=== PATIENT | male | born 1950 | race Caucasian/White ===

== ENCOUNTER 2016-11-21 09:54 | Inpatient (IN) | payer MEDICARE, OTHER ==
[~2016-11-21] VITALS: Ht 175.3 cm; Wt 83.1 kg
--- NOTE | ~2016-11-21 | HEMODYNAMI ---
PATIENT:JANE YORK MEDICAL RECORD: [id number] : 46 LOCATION:[facility] D.231 ADMISSION DATE: 11/25/16 Generatedon:12/04/201618:06 Patient name: JANE YORK Patient #: [id number] SSN: : 1950 Date of study: 12/04/2016 Page: Of Hemodynamic Procedure Report Patient Data Patient Demographics Procedure consent was obtained First Name: JANE Gender: Male Last Name: CHELA : 1950 [facility] Initial: R Age: 66 year(s) Patient #: [id number] Race: Ethnicity: or Additional ID: [id number] Contact details [address]: [address] [place] [address] TRAIL State: [place] City: [place] Zip code: [address] Past Medical History History of disease Date Diagnosis Comments PVD Admission Admission Data Admission Date: 11/25/2016 Admission Time: 5:57 Room #: [facility] Procedure Procedure Types Cath Procedure Peripheral Cath Diagnostic Procedure Cath Peripheral Abd/Extremity Extremities Bilat Lower Extremity Procedure Description Procedure Date Procedure Date: 12/04/2016 Procedure Start Time: 17:02 Procedure Staff Name Function Reena Wolf RN Nurse Gomez Garcia MD Performing Physician Bijan Goodson RT Monitor Reena Marie RT Scrub Procedure Data Cath Procedure Fluoroscopy Diagnostic fluoroscopy Total fluoroscopy Time: 8.6 time: 8.6 min min Diagnostic fluoroscopy Total fluoroscopy dose: dose: 180.68 mGy 180.68 mGy Contrast Material Contrast Material Type Amount (ml) Isovue 300 80 Entry Location Entry Primary Successful Side Size Upsize 1 Upsize Entry Closure Rice ccessful Closure Location (Fr) (Fr) 2 (Fr) Remarks Device Remarks Femoral Right 5 Fr 6 Fr artery Mid-Length Hemodynamics Rest Heart Rate: 111 (bpm) Snapshots Pre Cath Intra NCS Post Cath Vital Signs Time Heart Resp SPO2 NIBP (mmHg) Rhythm Pain Sedation Rate (ipm) (%) Status Level (bpm) 13:56:03 112 30 96 141/76(93) NSR 0 (11) 10(A) , No pain 14:00:02 108 20 97 119/72(102) NSR 0 (11) 10(A) , No pain 14:04:10 105 20 97 125/72(105) NSR 0 (11) 10(A) , No pain 14:08:18 108 16 96 120/72(91) NSR 0 (11) 10(A) , No pain 14:12:26 109 96 118/75(100) NSR 0 (11) 10(A) , No pain 14:16:34 109 97 132/74(90) NSR 0 (11) 10(A) , No pain 14:20:33 No Cuff NSR 0 () 10(A) , No pain 14:24:33 No Cuff NSR 0 () 10(A) , No pain 14:28:33 No Cuff NSR 0 () 10(A) , No pain 14:32:33 No Cuff NSR 0 () 10(A) , No pain 14:36:32 No Cuff NSR 0 () 10(A) , No pain 14:40:03 Aborted NSR 0 (11) 10(A) , No pain 16:46:07 106 100 121/65(87) NSR 0 (11) 10(A) , No pain 16:50:17 108 100 126/69(91) NSR 0 (11) 10(A) , No pain 16:54:27 107 100 125/67(92) NSR 0 (11) 10(A) , No pain 16:58:35 106 100 126/75(92) NSR 0 (11) 10(A) , No pain 17:02:45 104 100 132/73(94) NSR 0 (11) 10(A) , No pain 17:06:57 104 100 132/74(97) NSR 0 (11) 10(A) , No pain 17:11:07 105 100 144/78(101) NSR 0 (11) 10(A) , No pain 17:15:20 106 99 136/76(101) NSR 0 (11) 10(A) , No pain 17:19:32 106 99 142/78(95) NSR 0 (11) 10(A) , No pain 17:23:44 109 99 154/82(111) NSR 0 (11) 10(A) , No pain 17:28:04 107 99 147/76(107) NSR 0 (11) 10(A) , No pain 17:32:21 108 100 149/80(102) NSR 0 (11) 10(A) , No pain 17:36:34 107 100 147/82(110) NSR 0 (11) 10(A) , No pain 17:40:46 109 26 99 161/89(112) NSR 0 (11) 10(A) , No pain 17:44:58 109 22 99 165/90(123) NSR 0 (11) 10(A) , No pain 17:49:18 110 31 99 166/89(119) NSR 0 (11) 10(A) , No pain 17:53:39 108 30 100 158/89(121) NSR 0 (11) 10(A) , No pain 17:57:55 107 32 100 166/102(124) NSR 0 (11) 10(A) , No pain 18:01:54 100 No Cuff NSR 0 (11) 10(A) , No pain Procedure Log Time Note 16:42:13 Bijan Goodson RT (R) (CV) sent for patient. Start room use. 16:42:25 Time tracking: Regular hours 16:42:31 Plan of Care:Hemodynamics will remain stable., Cardiac rhythm will remain stable., Comfort level will be maintained., Respiratory function will remain adequate., Patient/ family verbilizes understanding of procedure., Procedure tolerated without complication., Recovers from procedure without complications.. 16:44:22 Correct patient and procedure confirmed by team. 16:44:24 Signed procedure consent form obtained from patient. 16:44:25 ECG and BP/O2 sat monitors applied to patient. 16:44:27 Full Disclosure recording started 16:44:27 - 16:44:32 H&P Date Dictated: 12/04/2016 Within 30 days and on chart.. 16:45:03 Vital chart was started 16:45:04 Baseline sample Acquired. 16:45:09 Rhythm: sinus tachycardia 16:45:13 Family in waiting room. 16:45:15 Patient NPO since Midnight. 16:45:23 Patient diabetic? No. 16:45:26 - 16:45:27 ----Pre-sedation anethsthesia assessment.---- 16:45:30 Previous problem with sedation/anesthesia? No ? 16:45:32 Snore? Yes 16:45:35 Sleep apnea? No 16:45:37 Deviated septum? No 16:45:38 Opens mouth fully? Yes 16:45:39 Sticks out tongue? Yes 16:45:44 Airway obstruction? No ? 16:46:36 pt on vent unable to answer questions 16:46:51 Pre procedure: right dorsailis pedis pulse Doppler 16:47:17 Pre procedure: left dorsailis pedis pulse 0-Absent 16:47:29 Pre procedure: right posterior tibial pulse Doppler 16:47:42 Pre procedure: left posterior tibial pulse 0-Absent 16:48:04 Patient pain scale 0/10 no pain. 16:48:12 IV patent on arrival in Lt subclavian with 0.9% NaCl at [facility]. 16:48:21 Right groin area was prepped with chlora-prep and draped in sterile fashion 16:48:26 Sharps counted by scrub and verified by R.N. 16:48:26 Alarms reviewed by R. N. 16:48:50 Use device set IR Diagnostic 16:48:52 Sterile Angiographic Pack opened to sterile field. 16:48:56 Bag Decanter opened to sterile field. 16:48:58 Acist Hand Control opened to sterile field. 16:48:59 Acist Manifold opened to sterile field. 16:59:31 Physician arrived 16:59:31 --------ALL STOP TIME OUT------ 16:59:32 Final Timeout: patient, procedure, and site verified with staff and physician. All members of the team are in agreement. 16:59:34 Right groin site verified by team. 16:59:44 Physical assessment completed. ASA score P 3 - A patient with severe systemic disease as per Gomez Garcia MD. 16:59:48 Sedation plan: IV Moderate Sedation Versed, Fentanyl 17:02:38 Procedure started. 17:02:43 Local anesthetic to right femoral artery with Lidocaine 1% by Gomez Garcia MD.INITIAL ACCESS ONLY 17:08:01 [place] Sci Amplatz Super Stiff 75CM guide wire opened to sterile field. 17:08:13 A 5 Fr sheath was inserted into the Right Femoral artery 17:08:15 High Pressure Extension Tubing (Tu Otro Super) opened to sterile field. 17:08:15 Acist Syringe opened to sterile field. 17:08:16 Micropuncture VSI 4FR kit opened to sterile field. 17:08:19 Cook ROSASON 145cm guide wire opened to sterile field. 17:10:35 Terumo 5FR ANGLED 65CM glide catheter opened to sterile field. 17:11:37 Terumo ANGLE 180L glide wire opened to sterile field. 17:21:04 Cook NEELY 260 guide wire opened to sterile field. 17:28:51 Terumo 6Fr Ancram Destination Sheath opened to sterile field. 17:29:23 Sheath upsized to a 6 Fr Mid-Length. 17:30:28 CXI SUPPORT .035 135 CM STR catheter opened to sterile field. 17:30:30 Terumo ANGLE 260L glide wire opened to sterile field. 17:30:45 Terumo TORQUE DEVICE PLASTIC .038 opened to sterile field. 17:32:19 Terumo 5FR ANGLED 100CM glide catheter opened to sterile field. 17:34:52 CRAGG-DIANE 30cm infusion catheter opened to sterile field. 17:42:25 2.0 Silk 685H opened to sterile field. 17:42:39 sheath sutured in with 2.0 silk 17:46:12 Procedure ended.(Physican Out) 17:47:16 Fluoroscopy time 08.60 minutes. 17:47:25 Fluoroscopy dose: 180.68 mGy 17:47:25 Flurop Dose total: 180.68 17:47:29 Contrast amount:Isovue 300 80ml. 17:47:31 Sharps counted by scrub and verified by R.N. 17:47:33 Insertion/operative site no bleeding no hematoma. 17:47:38 Post right femoral artery:stable 17:47:42 Post Procedure Pulses reassessed and unchanged 17:47:47 Post-procedure physical assessment completed. ASA score P 3 - A patient with severe systemic disease as per Gomez Garcia MD. 17:47:54 Post procedure rhythm: unchanged. 17:48:05 Post procedure instruction explained to patient.Patient verbalizes understanding. 17:48:07 Procedure and supply charges have been captured, reviewed, submitted an d are correct. 18:04:25 Report given to ICU. 18:04:38 Patient transfered to ICU with Bed. 18:06:00 Vital chart was stopped Device Usage Item Name Manufacture Quantity Catalog Hospital Part Current Minim al Lot# / Number Charge Number Stock Stock Serial# Code Sterile Cardinal 1 [id number] [id number] 5 Angiographic Health Pack Bag Decanter Microtek 1 2001S [id number] 13619 091829 5 Medical Inc. Acist Hand Acist 1 02655 331733 315861 591820 5 Control Medical Systems Inc Acist Manifold Acist 1 74668 539249 124459 808572 5 Medical Systems Inc [place] [facility] [place] 1 [id number] 595782 921008 966110 5 [id number] Amplatz Super Scientific Stiff 75CM guide wire High Pressure Merit 1 [id number] 403573 85228 209718 10 Extension Medical Tubing (Patel) Acist Syringe Acist 1 32745 945796 417678 488052 20 Medical Systems Inc Micropuncture VSI VASCULAR 1 7266V 642287 601482 5 VSI 4FR kit SOLUTIONS Cook BENTSON Cook Medical 1 [id number] 128234 340386 5 145cm guide wire Terumo 5FR Terumo 1 CG507 382517 792613 5 ANGLED 65CM glide catheter Terumo ANGLE Terumo 1 EK9548 056074 968527 5 180L glide wire Cook NEELY 260 Cook Medical 1 Q22253 001565 850391 5 8331115 guide wire Terumo 6Fr Terumo 1 RSR01 652446 25428 146075 5 Ancram Destination Sheath CXI SUPPORT Cook Medical 1 E32909 950865 171745 5 9751482 .035 135 CM STR catheter Terumo ANGLE Terumo 1 KH9363 642516 167035 5 260L glide wire Terumo TORQUE [place] 1 TD01 158335 773188 313248 5 DEVICE PLASTIC Scientific .038 Terumo 5FR Terumo 1 CG508 091217 537560 4 ANGLED 100CM glide catheter [facility] Ev3 1 62119-99 551011 747678 5 30cm infusion catheter 2.0 Silk 685H Ethicon 1 685H 752044 411586 5 Signature Audit [place] Stage Time Signature Unsigned Intra-Procedure 12/04/2016 Bijan 6:05:58 PM Hamzah RT (R) (CV) Signatures Monitor : Bijan Signature : Hamzah RT Date : Time : [facility] [address] [place] [address]
--- NOTE | ~2016-11-21 | HEMODYNAMI ---
PATIENT:JANE YORK MEDICAL RECORD: [id number] : 46 [id number] ADMISSION DATE: 11/25/16 Generatedon:12/05/201612:11 Patient name: JANE YORK Patient #: [id number] SSN: : 1950 Date of study: 12/05/2016 Page: Of Hemodynamic Procedure Report Patient Data Patient Demographics Procedure consent was obtained First Name: JANE Gender: Male Last Name: CHELA : 1950 [facility] Initial: R Age: 66 year(s) Patient #: [id number] Race: Ethnicity: or Additional ID: [id number] Contact details [address]: [address] [place] [address] TRAIL State: [place] City: [place] Zip code: [address] Past Medical History History of disease Date Diagnosis Comments PVD Admission Admission Data Admission Date: 11/25/2016 Admission Time: 5:57 Room #: [id number] Weight (lbs.): 198 Weight (kg.): 89.81 Procedure Procedure Types Cath Procedure Peripheral Cath Diagnostic Procedure Cath Peripheral Abd/Extremity Extremities Bilat Lower Extremity Procedure Description Procedure Date Procedure Date: 12/05/2016 Procedure Start Time: 11:10 Procedure Staff Name Function Sourav Almaguer MD Performing Physician Bijan Goodson RT Scrub Nabila Knutosn RN Nurse Geri Pagan RT Clinical Quality Manager Geri Pagan RT Monitor Procedure Data Cath Procedure Fluoroscopy Diagnostic fluoroscopy Total fluoroscopy Time: 0 time: 0 min min Diagnostic fluoroscopy Total fluoroscopy dose: dose: 227.25 mGy 227.25 mGy Contrast Material Contrast Material Type Amount (ml) Isovue 300 75 Entry Location Entry Primary Successful Side Size Upsize Upsize Entry Closure Succes sful Closure Location (Fr) 1 (Fr) 2 (Fr) Remarks Device Remarks Femoral Mynx artery Shellfish Meat Separator Operator 6Fr/7Fr Procedure Medications Medication Administration Route Dosage Heparin Bolus I.V. 5000 units Fentanyl I.V. 50 mcg Fentanyl I.V. 50 mcg Hemodynamics Rest Heart Rate: 89 (bpm) Snapshots Pre Cath Intra NCS Post Cath Vital Signs Time Heart Resp SPO2 NIBP (mmHg) Rhythm Pain Sedation Rate (ipm) (%) Status Level (bpm) 10:55:03 88 16 98 No Cuff NSR 0 (11) 10(A) , No pain 10:59:30 87 17 95 117/72(95) NSR 0 (11) 10(A) , No pain 11:03:38 88 16 94 118/73(96) NSR 0 (11) 10(A) , No pain 11:07:47 86 16 95 122/68(89) NSR 0 (11) 10(A) , No pain 11:11:55 86 16 95 126/72(105) NSR 0 (11) 10(A) , No pain 11:16:07 84 16 95 114/68(94) NSR 0 (11) 10(A) , No pain 11:20:15 82 16 96 122/69(92) NSR 0 (11) 10(A) , No pain 11:24:21 81 23 95 130/80(101) NSR 0 (11) 10(A) , No pain 11:28:35 84 16 95 117/71(94) NSR 0 (11) 10(A) , No pain 11:32:42 84 16 96 119/71(93) NSR 0 (11) 10(A) , No pain 11:36:52 85 16 96 120/69(97) NSR 0 (11) 10(A) , No pain 11:41:00 84 16 96 120/73(93) NSR 0 (11) 10(A) , No pain 11:45:08 83 19 96 123/71(89) NSR 0 (11) 10(A) , No pain 11:49:16 83 19 97 122/76(91) NSR 0 (11) 10(A) , No pain 11:53:24 81 16 96 122/77(100) NSR 0 (11) 10(A) , No pain 11:57:31 80 16 95 133/76(107) NSR 0 (11) 10(A) , No pain 12:01:46 80 16 95 136/72(97) NSR 0 (11) 10(A) , No pain 12:06:00 82 16 95 131/75(103) NSR 0 (11) 10(A) , No pain 12:10:11 83 16 95 122/75(102) NSR 0 (11) 10(A) , No pain Medications Time Medication Route Dose Verified Delivered Reason Notes Effe ctiveness by by 11:21:28 Heparin I.V. 5000 Nabila Nabila for Bolus units King TYRON Knutson RN anticoagulation 11:52:38 Fentanyl I.V. 50 Nabila Nabila for sedation mcg King TYRON Knutson RN 12:04:46 Fentanyl I.V. 50 Nabila Nabila for sedation [facility] King TYRON Knutson RN Procedure Log Time Note 10:50:21 Patient Weight : 198 lbs 10:50:56 Time tracking: Regular hours 10:51:22 Plan of Care:Hemodynamics will remain stable., Cardiac rhythm will remain stable., Comfort level will be maintained., Respiratory function will remain adequate., Patient/ family verbilizes understanding of procedure., Procedure tolerated without complication., Recovers from procedure without complications.. 10:51:30 Pt arrived from ICU bagged by RT. Pt ventilated and sedated. Vent settings: AC 16, 60% fiO2, TV 600, Peep 5. ET tube at 25 lip level. Right TLSC IV, clancy, abdominal wound vac, DAMION drains all secure. 10:51:30 Propofol drip continued at current rate of 40mcg/kg/min. 10:51:32 Patient received from ICU to IR On ventilator. Tansferred to table in Supine position. 10:51:35 Correct patient and procedure confirmed by team. 10:51:37 Signed procedure consent form from procedure 12/04/16 10:51:40 - 10:51:48 H&P Date Dictated: 12/05/2016 Within 30 days and on chart.. 10:51:52 Family unavailable. 10:51:55 Patient NPO since Midnight. 10:51:58 Is the patient allergic to Iodine/contrast media? No. 10:52:04 Is patient on blood thinner?Yes 10:52:08 Patient diabetic? No. 10:52:09 - 10:52:11 ----Pre-sedation anethsthesia assessment.---- 10:52:16 Previous problem with sedation/anesthesia? No ? 10:52:20 Snore? Yes 10:52:23 Sleep apnea? No 10:52:25 Deviated septum? No 10:52:27 Opens mouth fully? N/A 10:52:29 Sticks out tongue? N/A 10:52:34 Airway obstruction? Yes copd 10:52:40 Dentures? No ? 10:52:42 - 10:52:49 Pre procedure: right dorsailis pedis pulse Doppler 10:52:55 Pre procedure: right posterior tibial pulse Doppler 10:53:17 Pre procedure: left posterior tibial pulse 0-Absent 10:53:26 Pre procedure: left dorsailis pedis pulse 0-Absent 10:53:49 IV patent on arrival in subclavian with 0.9% NaCl at [facility]. 10:54:03 Right groin area was prepped with betadine and draped in sterile fashio n 10:54:06 Alarms reviewed by Judy Cruz 10:54:07 Sharps counted by scrub and verified by Dl 10:54:08 - 10:54:13 ECG and BP/O2 sat monitors applied to patient. 10:54:14 Vital chart was started 10:54:15 Baseline sample Acquired. 10:54:17 Full Disclosure recording started 10::18 - 10:54:28 Use device set IR Diagnostic 10:54:31 Sterile Angiographic Pack opened to sterile field. 10:54:32 Bag Decanter opened to sterile field. 11:09:16 Physician arrived 11::18 --------ALL STOP TIME OUT------ 11::19 Final Timeout: patient, procedure, and site verified with staff and physician. All members of the team are in agreement. 11::29 Right groin site verified by team. 11::49 Physical assessment completed. ASA score P 3 - A patient with severe systemic disease as per Sourav Almaguer MD. 11:10:21 Sedation plan: Local Anesthetic Lidocaine 11::28 Procedure started. 11::32 Local anesthetic to right femoral artery with Lidocaine 1% by Sourav Almaguer MD.INITIAL ACCESS ONLY 11:21:28 Heparin Bolus 5000 units I.V. was given by Nabila Knutson RN; for anticoagulation; 11:22:22 Cook Bentson 260cm 0.035 guide wire opened to sterile field. 11:22:[address] 260 .035 glide wire opened to sterile field. 11:22:36 CXI SUPPORT .035 135 CM STR catheter opened to sterile field. 11:25:15 BasixTOUCH Inflation Syringe opened to sterile field. 11:25:33 QuickCat Extraction catheter opened to sterile field. 11:26:07 Tyler Sci Choice PT Extra Support J 300cm .014 gu opened to sterile field. 11:27:19 Inflation number: 1 A Saber 3.0 X 150 X 150 balloon was prepped and advanced across the Undefined1, then inflated to 14 JEFF for 0:24 (min:sec). 11:38:21 Copilot Bleedback Control Valve opened to sterile field. 11:52:38 Fentanyl 50 mcg I.V. was given by Nabila Knutson RN; for sedation; 12:00:43 St Aly 6Fr sheath opened to sterile field. 12:03:06 Contrast amount:Isovue 300 75ml. 12:04:46 Fentanyl 50 mcg I.V. was given by Nabila Knutson RN; for sedation; 12:05:36 MYNX STIFF LEG OPERATOR 6FR/7FR opened to sterile field. 12:05:51 A sheath was inserted into the Femoral artery 12:05:51 Sheath removed intact; hemostasis achieved with Mynx Shellfish Meat Separator Operator 6Fr/7Fr to th e Femoral artery. 12:05:56 Procedure and supply charges have been captured, reviewed, submitted an d are correct. 12:09:25 Procedure ended.(Physican Out) 12:09:48 Fluoroscopy time 00.00 minutes. 12::58 Fluoroscopy dose: 227.25 mGy 12::58 Flurop Dose total: 227.25 12:10:01 Sharps counted by scrub and verified by R.N. 12:11:06 Vital chart was stopped Intervention Summary Intervention Notes Time ActionType Lesion and Equipment Action# Pressure Duration Attributes Used 11:27:19 Inflate Undefined1 Saber 3.0 1 14 00:24 balloon X 150 X 150 balloon Device Usage Item Name Manufacture Quantity Catalog Number Hospital Part Current Mini mal Lot# / Charge Number Stock Stock Serial# Code Sterile Cardinal 1 [id number] [id number] 171188 5 Angiographic Health Pack Bag Decanter Microtek 1 2001S 499670 28834 243147 5 Reve[employer]r [employer] Inc. Cook [facility] Cook Medical 1 [id number] 707177 472152 342895 4 [id number] 260cm 0.035 guide wire Cook Cook Medical 1 [id number] 221095 313195 5 0751530 [facility] 260 .035 glide wire CXI SUPPORT Cook Medical 1 [id number] 104535 839700 5 4873187 .035 135 CM STR catheter BasixTOUCH Merit 1 [id number] 538246 208300 681620 5 Inflation Medical Syringe QuickCat Maquet 1 66205-52 661656 604941 998454 5 Extraction catheter Tyler Sci Tyler 1 [id number] 139911 106280 942233 5 Choice PT Scientific Extra Support J 300cm .014 gu Saber 3.0 X Cardinal 1 [id number] 481667 210981 5 150 X 150 Health balloon Copilot Mckee 1 [id number] 592164 968878 210007 [address] Bleedback [address] Control Valve [address] Aly 6[address] St Aly 1 524214 925026 342622 5 [id number] sheath MYNX STIFF LEG OPERATOR Access 1 [id number] 371574 465176 5 6FR/7FR Closure Signature Audit [place] Stage Time Signature Unsigned Intra-Procedure 12/05/2016 Geri Pagan 12:11:03 PM RT(R) Signatures Monitor : Geri Pagan RT Signature : Date : Time : [place] [id number] [facility] [place] [address]
[~2016-11-21 09:54] MED LIST: ATIVAN1 MG PO; AUGMENTIN 875-11 TAB PO; BAYER CHEWABLE81 MG PO; BENICAR HCT 20-1 TA1; BENICAR HCT 20-1 TA1 PO; BENICAR HCT 40-1 TAB PO; BENICAR20 MG PO; BYSTOLIC5 MG PO; CELEXA20 MG PO; CEPACOL SORE T1 EAC3 PO; CLOMID50 MG PO; HYDROCODONE-APA1 TAB PO; IPRAT-ALBUT 0.5-3 ML UPD; LINZESS145 MCG PO; METOZOLV ODT5 MG PO; MIRALAX17 GM PO; MOBIC7.5 MG PO; NEXIUM40 MG PO; NICODERM C1 PATCH .1 TRANSDERM; PLAVIX75 MG PO; PROBIOTIC1 EAC1 PO; REGLAN5 MG PO; ZOFRAN ODT4 MG/UDTAB PO; ZOSYN 3.3753.375 G1 IV
[2016-11-21 13:41] LABS: BASOPHILS 0.9 % (0.0-2.0); EOSINOPHILS 3.1 % (0-7); HEMATOCRIT 43.2 % (42.0-54.0); HEMOGLOBIN 14.6 g/dL (13.5-17.5); IMMATURE GRANULOCYTES 0.1 % (0-5); MCH 30.3 pg (26.0-34.0); MCHC 33.8 g/dL (31.0-37.0); MCV 89.6 fL (80.0-100.0); MEAN PLATELET VOLUME 10.9 fL (7.4-10.4); MONOCYTES 9.5 % (2-11); NEUTROPHILS 67.4 % (40-80); PLATELET COUNT 269 10x3/uL (130-400); RBC 4.82 10x6/uL (4.20-6.10); RDW 14.1 % (11.5-14.5); WBC 6.8 10x3/uL (4.8-10.8)
[2016-11-21 13:45] LABS: APTT 28.4 SECONDS (22.8-39.4); INR 1.02 (0.85-1.17); PROTIME 13.2 SECONDS (11.6-15.0)
[2016-11-21 13:46] LABS: ANION GAP 12.8 mmol/L (8-16); CALCIUM 9.6 mg/dL (8.5-10.1); CARBON DIOXIDE 29.5 mmol/L (21.0-32.0); CREATININE - SERUM 1.4 mg/dL (0.6-1.3); POTASSIUM - SERUM 4.3 mmol/L (3.5-5.1)
[2016-11-25] MEDS ORDERED: PRAVACHOL40 MG PO (05:44)
[2016-11-25 05:57] VITALS: BP 123/64; BMI 28.8
--- NOTE | 2016-11-25 06:35 | NUR ---
[address] MARLEY ABOUT LOVENOX AND NEED FOR OTHER BLOOD WORK. ORDERED LOVENOX GIVEN AND NO OTHER BLOOD WORK NEEDED
[2016-11-25 12:39] VITALS: BP 159/102
--- NOTE | 2016-11-25 12:47 | NUR ---
recieved from pacu per bed. iv right wrist. dressings x 3 to abdomen all clean and dry/intact. clancy draining yellow urine. scds on bilat. rouses easily to answer questions
--- NOTE | 2016-11-25 12:55 | NUR ---
OXYGEN AT 2LNC APPLIED. REMAINS AT 92% OXYGEN INCREASED TO 3LNC AND SATS REMAIN AT 93%. FAMILY AT BEDSIDE
[2016-11-25 13:12] VITALS: BP 159/101; BMI 28.1
--- NOTE | 2016-11-25 15:50 | OP ---
PATIENT NAME: JANE YORK MEDICAL RECORD: [id number] :48 LOCATION:[id number] ADMISSION DATE:11/25/16 SURGEON: RONNIE MARLEY MD DATE OF OPERATION: 11/25/2016 SURGEON: Ronnie Marley MD PREOPERATIVE DIAGNOSES: 1. Colon cancer. 2. History of colostomy. POSTOPERATIVE DIAGNOSES: 1. Colon cancer. 2. History of colostomy. 3. Incisional hernia. PROCEDURE PERFORMED: Laparoscopic lysis of adhesions, laparoscopic mobilization of splenic flexure, laparoscopic-assisted Edvin's reversal, flexible sigmoidoscopy and appendectomy. ANESTHESIA: General. COMPLICATIONS: None. SPECIMENS: 1. Colostomy. 2. Anastomotic donut. 3. Appendix. 4. Upper rectum. ESTIMATED BLOOD LOSS: 200 cc. Case was contaminated. OPERATIVE COURSE: After consent was obtained, the patient was taken to the operating room and placed in the supine position on the operating table. Next, general anesthesia was given via endotracheal intubation after a timeout was taken to confirm the correct patient and procedure. The patient was placed into stirrups. The abdomen was prepped and draped in typical sterile fashion. Ioban dressing was placed. Next, local anesthetic was injected in the left upper quadrant. A stab incision was made with an 11-blade scalpel. Using a 5-mm bladeless optical trocar, the abdomen was entered under direct laparoscopic vision. Adequate pneumoperitoneum was achieved. The abdominal cavity was inspected. No evidence of bowel injury. No evidence of bleeding. The abdomen was insufflated. Adequate pneumoperitoneum was achieved. No evidence of bowel injury. No evidence of bleeding. A second 5-mm trocar was then placed into the right lateral quadrant. The patient had a previous obstructing colon cancer with exploratory laparotomy and Edvin's procedure. There were dense adhesions throughout the midline of the abdomen. The patient had significant adhesions in the ventral midline and entire left side of the abdomen. The patient had a large incisional hernia. Laparoscopic lysis of adhesions was performed with a combination of Metzenbaum scissors and Harmonic scalpel. Once the midline was cleared, a third 5-mm trocar was placed into the midline just above the umbilicus and a fourth trocar was placed in the lower midline below the umbilicus. Meticulous laparoscopic lysis of adhesions was continued. The OPERATIVE REPORT [id number] CHELA,JANE R colon was mobilized around the splenic flexure and along the left pelvic side wall. The adhesions to the colostomy were freed circumferentially with the Harmonic scalpel. At this time, a small lower midline abdominal incision was made with a 15 blade scalpel. Dissection continued to the level of the fascia using electrocautery. The fascia was incised with electrocautery and the Prosper retractor was placed. At this time, the rectum was mobilized. The avascular space was taken from his sacral promontory. The peritoneal reflection was taken down with combination of electrocautery. The EEA sizers were placed. The rectum tissue was very thin and tenuous. The rectum split at the upper portion at approximately 10-12 cm with the insertion of the 23 mm EEA sizer. Five additional cc of rectum were then transected using the contour stapling device to recreate a new staple line below the rectal tear. Once this was done, the 23 and 25-mm EEA sizers were placed in the rectum without resistance or injury. At this time, the skin was excised surrounding the colostomy at the skin level using electrocautery. Using a combination of electrocautery and sharp scissor dissection, the colostomy adhesions were taken from the left upper quadrant colostomy site. The 25-mm EEA anvil was placed into the colostomy. The distal 4 centimeters of the colostomy were then transected using the 75-mm green load linear cutting stapler. The colon was passed through the ostomy defect. The anvil was delivered to the staple line. The two 25-mm EEA was placed into the rectum. It was advanced to the staple line. The spike was deployed. The spike was connected to the anvil, the device was closed and then jonas fired. The EEA stapler was then removed with 2 intact donuts. The staple line was then oversewn using a 2-0 Stratafix suture. At this time, a flexible sigmoidoscopy was performed. The scope was inserted into the rectum. The rectum was lightly insufflated. The scope was passed through the anastomosis. A bowel clamp was placed. The pelvis was filled with fluid. The anastomosis was held underwater. The rectum and distal colon were insufflated. There was no evidence of leak. At this time, all remaining insufflation was sucked from the bowel using the colonoscope. The anastomosis was evaluated and then the scope was withdrawn. The pelvis was copiously suctioned. Tisseel was applied to reinforce the anastomosis. Jaison was placed in the avascular space. Prophylactic appendectomy was done at this time. Mesoappendix was taken with the Harmonic scalpel. A right angle was placed across the base of the appendix. The appendix was taken with the Harmonic scalpel. The appendiceal stump was tied off with a 0 silk suture and the stump was bovied and imbricated using 3-0 Vicryl suture. At this time, the Gelport was placed. The abdomen was reinsufflated. The abdominal cavity was inspected. The entire abdominal cavity was irrigated and suctioned. Careful attention was paid to hemostasis. At this time, the abdominal cavity was inspected. There was no evidence of bowel injury. No evidence of bleeding. No evidence of bile leak. The ostomy site was closed with a 0 Prolene suture. At this time, the Prosper retractor was removed. The fascia was then closed with a #1 looped PDS. Skin was reapproximated with jonas. The colostomy site was left open to drainage. The trocars were removed. Trocar sites were closed with jonas. At the end of the case, all needle and instrument counts were correct. No complications occurred. The patient was extubated and transferred to the PACU in stable condition. TRANSINT:[id number] Voice Confirmation ID: [id number] DOCUMENT ID: [id number] OPERATIVE REPORT [id number] JANE YORK,RONNIE May MD at 1550 CC: [id number] DICTATION DATE: 11/25/16 1212 ROUTE DELIVERY SUPERVISOR: 11/25/16 1303 ADM IN [place] [id number] [place] [address]
--- NOTE | 2016-11-25 23:10 | NUR ---
RESTING WITH EYES CLOSED, RESP WITH EASE, CL IN REACH
[2016-11-26] VITALS: BP 105/62
[2016-11-26 04:00] VITALS: BP 102/54
[2016-11-26 05:58] LABS: BASOPHILS 0.2 % (0.0-2.0); EOSINOPHILS 0.1 % (0-7); HEMATOCRIT 37.2 % (42.0-54.0); HEMOGLOBIN 12.4 g/dL (13.5-17.5); IMMATURE GRANULOCYTES 0.2 % (0-5); MCHC 33.3 g/dL (31.0-37.0); MCV 89.9 fL (80.0-100.0); MEAN PLATELET VOLUME 10.4 fL (7.4-10.4); MONOCYTES 11.5 % (2-11); PLATELET COUNT 248 10x3/uL (130-400); RBC 4.14 10x6/uL (4.20-6.10); WBC 10.9 10x3/uL (4.8-10.8)
[2016-11-26 06:18] LABS: ANION GAP 11.2 mmol/L (8-16); CALCIUM 8.6 mg/dL (8.5-10.1); CARBON DIOXIDE 26.7 mmol/L (21.0-32.0); CREATININE - SERUM 1.7 mg/dL (0.6-1.3); MAGNESIUM - SERUM 1.8 mg/dL (1.8-2.4); POTASSIUM - SERUM 4.9 mmol/L (3.5-5.1)
--- NOTE | 2016-11-26 08:00 | NUR ---
ASSESSMENT COPMPLETE NO DISTRESS NOTED MILD CONFUSION NOTED VOICES NEEDS TO STAFF MOBILE PER STAFF ASSIST. CALL LIGHT IN REACH SIDE RAILS UP X 2
--- NOTE | 2016-11-26 08:29 | NUR ---
REC'D WALKING ROUNDS.EYES CLOSED RESP. DEEP AND EVEN DTR. AT BEDSIDE.WILL CONTINUE TO MONITOR FOR ANY CHGES AND FOLLOW CURRENT PLAN OF CARE.
[2016-11-26 08:31] VITALS: BP 119/72
--- NOTE | 2016-11-26 10:59 | NUR ---
ANSWERED PATIENT'S CALL LIGHT. PATIENT IS SITTING UP IN THE CHAIR. NO SIGNS OF DISTRESS NOTED. PATIENT ASKED ABOUT USING A PHONE. EXPLAINED TO PATIENT TO PETRA 9 FIRST THEN THE NUMBER. PATIENT VERBALIZED UNDERSTANDING, PICKED UP THE PHONE AND DAILED 9. THEN ASKED ME "WHO AM I TRYING TO CALL? I KEEP FORGETTING WHAT I AM DOING." TOLD PATIENT "WHEN YOU REMEMBER AND IF YOU NEED ANY HELP JUST PUSH THE CALL LIGHT." PATIENT VERBALIZED UNDERSTANDING AND DENIES QUESTIONS.
[2016-11-26 12:59] VITALS: BP 122/69; BP 122/9
[2016-11-26 14:45] VITALS: Ht 175.3 cm; Wt 83.1 kg
--- NOTE | 2016-11-26 16:14 | NUR ---
Patient Name: JANE YORK Admission Status: Elective Accout number: [id number] Admission Date: 11-25-2016 : 1950 Admission Diagnosis: Attending: VANCE Current LOS: 1 Anticipated DC Date: 11-29-2016 Planned Disposition: Home or Self Care Primary Insurance: MEDICARE A & B Discharge Planning Comments: CM MET WITH PATIENT AND (TREASURE) REGARDING D/C NEEDS AND PLANS. PATIENT STATED HE LIVES WITH HIS AND SHE WILL DRIVE HIM HOME AT DISCHARGE. PATIENT HAS 2 STEPS W/O RAILS TO ENTER HIS HOME AND NO STAIRS INSIDE. PATIENT STATED HE IS INDEPENDENT WITH HIS CARE. PATIENT HAS A WALKER, CANE, SHOWER CHAIR, AND RAILS ON HIS BED AT HOME. PATIENTS PCP IS DR. DELANEY [facility]. PATIENT HAS REFUSED HOME HEALTH IN THE PAST AND DOES NOT WANT IT NOW BUT STATED HE MIGHT BE OPEN TO IT IF NEEDED. CM WILL CONTINUE TO FOLLOW PATIENT WITH D/C NEEDS AND PLANS. PCP DR. ELAINA [facility]- [phone] T[facility] () [phone] Turn Down Attendant: Jessie Fritz Is the patient Alert and Oriented? Yes 0 * How many steps to enter\exit or inside your home? 2 W/O RAIL 0 * PCP DR. DELANEY 0 * [facility] 0 * Preadmission Environment Home with Family 0 * ADLs Independent 0 * Equipment Cane Shower Chair Walker 0 * Other Equipment RAILS ON BED 0 * List name and contact numbers for known caregivers / representatives who currently or will assist patient after discharge: TREASURE () [phone] 0 * Community resources currently utilized None 0 * Additional services required to return to the preadmission environment? Yes 0 * Can the patient safely return to the preadmission environment? Yes 0 * Has this patient been hospitalized within the prior 30 days at any hospital? No 0 Grand Total: 0
[2016-11-26 16:29] VITALS: BP 126/79
[2016-11-26 19:00] VITALS: BP 135/64
--- NOTE | 2016-11-26 21:58 | NUR ---
ATIVAN GIVEN PER REQUEST FOR SLEEP ALONG WITH ROUTINE MEDS, LB WELL, FAMILY IN ROOM, SR'S UP X2, CL IN REACH
--- NOTE | 2016-11-26 22:12 | NUR ---
MORPHINE LITERACY COACH FILLED,INSTRUCTED FAMILY ON USE, CL IN REACH
--- NOTE | 2016-11-27 03:30 | NUR ---
LYING IN BED AWAKE, CONFUSION NOTED, DTR AT BEDSIDE, SR'S UP, CL IN REACH
[2016-11-27 04:00] VITALS: BP 168/78
--- NOTE | 2016-11-27 05:49 | NUR ---
PT CONTINUES TO HAVE CONFUSION, DTR REPORTS PT DID NOT SLEEP, NO ENGINEERING LEADER USE "IN HOURS", NO PHYSICAL SS OF DISTRESS NOTED, SAFETY MEASURES IN PLACE, CL IN REACH
[2016-11-27 06:47] LABS: BASOPHILS 0.2 % (0.0-2.0); EOSINOPHILS 1.1 % (0-7); IMMATURE GRANULOCYTES 0.2 % (0-5); LYMPHOCYTES 8.6 % (15-50); MCH 29.8 pg (26.0-34.0); MCHC 33.3 g/dL (31.0-37.0); MCV 89.4 fL (80.0-100.0); MEAN PLATELET VOLUME 9.8 fL (7.4-10.4); MONOCYTES 8.9 % (2-11); WBC 9.8 10x3/uL (4.8-10.8)
[2016-11-27 07:00] LABS: ANION GAP 8.6 mmol/L (8-16); CALCIUM 8.6 mg/dL (8.5-10.1); CARBON DIOXIDE 26.4 mmol/L (21.0-32.0); CREATININE - SERUM 1.5 mg/dL (0.6-1.3); MAGNESIUM - SERUM 1.6 mg/dL (1.8-2.4)
[2016-11-27 07:13] LABS: HEMATOCRIT 29.4 % (42.0-54.0); HEMOGLOBIN 9.8 g/dL (13.5-17.5); PLATELET COUNT 164 10x3/uL (130-400); RBC 3.29 10x6/uL (4.20-6.10)
[2016-11-27 08:33] VITALS: BP 136/57
--- NOTE | 2016-11-27 11:52 | NUR ---
CHANGED DRESSING TO [facility] OF [facility]. WET TO DRY, PACKED WITH KERLIX. STERILE TECHNIQUE MAINTAINED. PATIENT TOLERATED WELL. MIDLINE INCISION HAS RHINA, MOST INFERIOR STAPLE IS NOT CONNECTED TO RIGHT SIDE OF INCISION, 1 CM OF INFERIOR INCISION IS OPEN, DRAINING SCANT AMOUNT OF BLOOD. APPLIED STERI-STRIPS. PATIENT IS SITTING UP IN THE CHAIR. WIL MAT ALARM ON. PATIENT DENIES NEEDS. CALL LIGHT IN REACH.
[2016-11-27 11:55] VITALS: BP 130/71
--- NOTE | 2016-11-27 14:20 | NUR ---
IV LEAKING D/C WITH CATH INTACT
[2016-11-27 16:53] VITALS: BP 157/81
--- NOTE | 2016-11-27 17:36 | NUR ---
ASKED PATIENT ABOUT VOIDING SINCE [facility] CATH DCD TODAY. STATES PATIENT HAS VOIDED TWICE BUT DID NOT USE THE URINAL DUE TO URGENCY. INFORMED AND PATIENT IMPORTANCE OF USING URINAL SO THAT UOP COULD BE MEASURED. AND PATIENT VERBALIZE UNDERSTANDING. URINAL AT BEDSIDE AND IN REACH OF PATIENT.INSTRUCTED PATIENT TO CALL NURSING FOR ANY ASSISTANCE.
--- NOTE | 2016-11-27 18:05 | NUR ---
PATIENT HAD INC VOID. CHANGED DEPENDS AND LINENS. PATIENT VERBALIZED NEED TO URINATE, ASSISTED PATIENT USING THE URINAL. PATIENT VOIDED 200ML IN THE URINAL.
[2016-11-27 19:00] VITALS: BP 152/811
--- NOTE | 2016-11-28 02:00 | NUR ---
PT STATED THAT HE DID NOT WANT TO BE WOKE UP FOR HIS 0100 TX, WENT WITH THE PATIENT'S WISHES. NO TX WAS GIVEN AT 0100
[2016-11-28 04:00] VITALS: BP 143/75
[2016-11-28 05:48] LABS: BASOPHILS 0.1 % (0.0-2.0); EOSINOPHILS 0.8 % (0-7); HEMATOCRIT 29.8 % (42.0-54.0); HEMOGLOBIN 9.9 g/dL (13.5-17.5); IMMATURE GRANULOCYTES 0.2 % (0-5); LYMPHOCYTES 9.3 % (15-50); MCH 29.9 pg (26.0-34.0); MCHC 33.2 g/dL (31.0-37.0); MONOCYTES 8.4 % (2-11); NEUTROPHILS 81.2 % (40-80); RBC 3.31 10x6/uL (4.20-6.10); RDW 14.1 % (11.5-14.5); WBC 9.8 10x3/uL (4.8-10.8)
[2016-11-28 05:59] LABS: PLATELET COUNT 212 10x3/uL (130-400)
[2016-11-28 06:04] LABS: ANION GAP 9.9 mmol/L (8-16); CALCIUM 8.8 mg/dL (8.5-10.1); CARBON DIOXIDE 26.1 mmol/L (21.0-32.0); CREATININE - SERUM 1.5 mg/dL (0.6-1.3); MAGNESIUM - SERUM 1.7 mg/dL (1.8-2.4)
--- NOTE | 2016-11-28 08:00 | NUR ---
PT ASSESSMENT COMPLETE NO ACUTE DISTRESS NOTED DAUGHTER AT BEDSIDE PT AWAKE AND ALERT MINIMAL CONFUSION NOTED TO SITUATION EASILY REDIRECTABLE. LUNGS CLEAR BILATERAL. DRESSING NOTED TO LEFT SIDE OF ABDOMEN MIDLINE INCISION NOTED TO HAVE REDNESS SURROUNDING RHINA
[2016-11-28 08:04] VITALS: BP 150/75
--- NOTE | 2016-11-28 09:15 | NUR ---
DR MARLEY ROUNDS NOTED REDNESS TO STAPLE LINE MIDLINE ORDER TO REMOVE SINGLE STAPLE IN MIDLINE AND PACK EVISERATION SITE WITH DRY KERLEX. DRESSING CHANGED PER ORDER AND NEW DRESSING APPLIED. WILL MONITOR
--- NOTE | 2016-11-28 11:00 | NUR ---
UP IN CHAIR AT THIS TIME. AT BEDSIDE. RESPIRATIONS EVEN AND NON LABORED. CALL LIGHT IN REACH, WILL CONTINUE WITH PLAN OF CARE.
--- NOTE | 2016-11-28 11:04 | NUR ---
UP PER PHYSICAL THERAPY IN CHAIR AT BEDSIDE AMBULATED WITH ROLLING WALKER.
[2016-11-28 11:43] VITALS: BP 157/86
--- NOTE | 2016-11-28 12:29 | NUR ---
PT NOTED TO BE MORE CONFUSED AT THIS TIME. EASILY REDIRECTED HOWEVER QUICKLY FORGETS INFORMATION.
--- NOTE | 2016-11-28 13:33 | NUR ---
NUTRITION MONITORING & EVAL PT CONTINUES CLEAR LIQUID DIET. WILL MONITOR DIET ADVANCEMENT, PT PROGRESS. RD FOLLOWING
--- NOTE | 2016-11-28 13:46 | NUR ---
PT RESTING WELL IN BED WITH EYES CLOSED RESPS EVEN AND UNLABORED.
--- NOTE | 2016-11-28 14:04 | NUR ---
Rehab Note- Prescreen order received. Will follow patient at this time. Thank you for this referral! Bhavana Espino RN Clinical Liaison, [facility]
[2016-11-28 16:56] VITALS: BP 182/92
--- NOTE | 2016-11-28 18:59 | NUR ---
SUNNY PAGED RE: BLACK COFFE GROUND EMESIS
--- NOTE | 2016-11-28 19:52 | NUR ---
ASSESSED PT IS ASLEEP AT THIS TIME
[2016-11-28 20:00] VITALS: BP 179/89
[2016-11-29 02:00] VITALS: BP 124/79
[2016-11-29 04:00] VITALS: BP 156/81
[2016-11-29 06:26] LABS: BASOPHILS 0.1 % (0.0-2.0); EOSINOPHILS 0.1 % (0-7); HEMATOCRIT 33.1 % (42.0-54.0); IMMATURE GRANULOCYTES 0.2 % (0-5); LYMPHOCYTES 7.6 % (15-50); MCH 29.3 pg (26.0-34.0); MCHC 33.2 g/dL (31.0-37.0); MCV 88.3 fL (80.0-100.0); MEAN PLATELET VOLUME 9.9 fL (7.4-10.4); MONOCYTES 9.5 % (2-11); NEUTROPHILS 82.5 % (40-80); RBC 3.75 10x6/uL (4.20-6.10); RDW 13.8 % (11.5-14.5); WBC 10.1 10x3/uL (4.8-10.8)
[2016-11-29 06:27] LABS: PLATELET COUNT 291 10x3/uL (130-400)
[2016-11-29 07:15] LABS: ANION GAP 14.6 mmol/L (8-16); CALCIUM 8.8 mg/dL (8.5-10.1); CARBON DIOXIDE 24.2 mmol/L (21.0-32.0); MAGNESIUM - SERUM 1.7 mg/dL (1.8-2.4); POTASSIUM - SERUM 3.8 mmol/L (3.5-5.1)
[2016-11-29 07:17] LABS: CREATININE - SERUM 1.1 mg/dL (0.6-1.3)
--- NOTE | 2016-11-29 07:35 | NUR ---
HAD INCONTINENT EPISODE OF URINE AT THIS TIME. DEEPTHI CARE PROVIDED AND PT GIVEN BRIEF TO PUT ON. REMAINS IN BED WITH WIL MAT ALARM IN USE FOR FALL PRECAUTIONS. CALL LIGHT IN REACH. DENIES NAUSEA AND IS NEGATIVE FOR EMESIS. CALL LIGHT IN REACH, SRX2 AND BED IN LOWEST POSITION AND LOCKED. WILL CONTINUE WITH PLAN OF CARE.
--- NOTE | 2016-11-29 08:20 | NUR ---
SIZE CHANGER IN ROOM OBTAINING VITAL SIGNS AT THIS TIME. VITAL SIGNS STABLE. ASSESSMENT PERFORMED. PT DENIES NAUSEA. BOWEL SOUNDS ACTIVE X4 QUADS. MIDLINE INCISION WITHOUT REDNESS, PACKING REMAINS IN PLACE. LAP SITES X3 C/D/I WITH NO S/S OF INFECTION PRESENT. DENIES ISSUE WITH URINATION OTHER THAN OCCASIONAL INCONTINENCE. DENIES PAIN. IV TO LEFT WRIST PATENT WITH BRISK BLOOD RETURN PRESENT. WIL MAT ALARM IN USE FOR FALL PRECAUTIONS. CALL LIGHT IN REACH, DENIES NEEDS AT THIS TIME. WILL CONTINUE WITH PLAN OF CARE.
[2016-11-29 08:34] VITALS: BP 147/84
--- NOTE | 2016-11-29 08:45 | NUR ---
DRESSING TO MIDLINE AND LEFT LOWER ABDOMEN INCISION REMOVED. SITE ASSESSED BY DR MARLEY AND PACKING REMOVED. BOTH SITES PACKED WITH 4X4 LOOSELY AND COVERED WITH BORDER GAUZE DRESSING. PT TOLERATED WITHOUT COMPLAINTS. CALL LIGHT IN REACH, WILL CONTINUE WITH PLAN OF CARE.
--- NOTE | 2016-11-29 09:10 | NUR ---
ASSISTED PT UP IN CHAIR AT THIS TIME. WIL MAT ALARM PLACED IN CHAIR FOR FALL PRECAUTIONS. PT PROVIDED WITH INCENTIVE SPIROMETER AND INSTRUCTED PT TO USE 10 TIMES AN HOUR WHILE AWAKE. PT DEMONSTRATED PROPER USE WITH 1,000 ML OF INSPIRATORY VOLUME. CALL LIGHT IN REACH, DENIES NAUSEA. WILL CONTINUE WITH PLAN OF CARE.
--- NOTE | 2016-11-29 09:42 | NUR ---
AMBULATED 300FT WITH PHYSICAL THERAPY WITH THE ASSISTANCE OF A WALKER. ASSISTED BACK TO CHAIR BY THERAPIST AND PROVIDED WITH ICE CHIPS. WIL MAT ALARM ON.
--- NOTE | 2016-11-29 11:00 | NUR ---
PT REQUESTING TO GET BACK IN BED AT THIS TIME. EXPLAINED TO PT THAT D/T FREE AIR IN THE BOWEL HE NEEDS TO BE UP IN THE CHAIR AND AMBULATING MUCH POSSIBLE. PT VERBALIZED UNDERSTANDING. PT TAKEN OUT OF STRAIGHT BACK CHAIR AND PLACED IN RECLINER CHAIR WITH WIL MAT ALARM IN USE FOR FALL PRECAUTIONS. PT USING INCENTIVE SPIROMETER 10X AN HOUR DIRECTED. SAÚL NAUSEA OR PAIN AT THIS TIME. CALL LIGHT IN REACH, WILL CONTINUE WITH PLAN OF CARE.
--- NOTE | 2016-11-29 12:46 | NUR ---
LASIX IV ONE TIME DOSE ADMINISTERED PER TYRON LYON. PT REMAINS UP IN CHAIR AT THIS TIME.
[2016-11-29 12:51] VITALS: BP 137/77
--- NOTE | 2016-11-29 15:00 | NUR ---
REFUSING TO SIT UP IN THE CHAIR ANY LONGER. ASSITED PT BACK TO BED WITH WIL MAT ALARM IN USE FOR FALL PRECAUTIONS. CALL LIGHT IN REACH, WILL CONTINUE WITH PLAN OF CARE.
[2016-11-29 16:56] VITALS: BP 129/74
--- NOTE | 2016-11-29 17:25 | NUR ---
ASSISTED PT TO BEDSIDE COMMODE AT THIS TIME. BRIEF REMOVED AND SMALL AMOUNT OF REDDISH, BROWN LOOSE STOOL OBSERVED. INTSTRUCTED PT TO SIT ON BEDSIDE COMMODE AND NOT TO STRAIN OR PUSH TO HAVE A BOWEL MOVEMENT. REMINDED HIM THAT IT NEEDED TO OCCUR NATURALLY. PT VERBALIZED UNDERSTANDING. INSTRUCTED PT TO USE CALL LIGHT WHEN HE WAS FINISHED AND NOT TO GET UP WITHOUT ASSISTANCE. PT VERBALIZED UNDERSTANDING. CALL LIGHT IN REACH, WILL CONTINUE WITH PLAN OF CARE.
[2016-11-29 20:00] VITALS: BP 118/69
[2016-11-30] VITALS: BP 130/73
[2016-11-30 04:00] VITALS: BP 141/71
[2016-11-30 07:35] LABS: BASOPHILS 0.2 % (0.0-2.0); HEMATOCRIT 31.8 % (42.0-54.0); HEMOGLOBIN 10.6 g/dL (13.5-17.5); IMMATURE GRANULOCYTES 0.3 % (0-5); LYMPHOCYTES 9.9 % (15-50); MCH 29.7 pg (26.0-34.0); MCHC 33.3 g/dL (31.0-37.0); MCV 89.1 fL (80.0-100.0); MEAN PLATELET VOLUME 9.6 fL (7.4-10.4); MONOCYTES 11.2 % (2-11); NEUTROPHILS 77.4 % (40-80); RBC 3.57 10x6/uL (4.20-6.10); RDW 13.9 % (11.5-14.5); WBC 9.7 10x3/uL (4.8-10.8)
[2016-11-30 07:42] LABS: PLATELET COUNT 353 10x3/uL (130-400)
[2016-11-30 07:52] LABS: CALCIUM 8.7 mg/dL (8.5-10.1); CARBON DIOXIDE 30.2 mmol/L (21.0-32.0); CREATININE - SERUM 1.3 mg/dL (0.6-1.3); MAGNESIUM - SERUM 1.9 mg/dL (1.8-2.4)
[2016-11-30 07:59] LABS: POTASSIUM - SERUM 3.2 mmol/L (3.5-5.1)
[2016-11-30 08:26] VITALS: BP 144/80
[2016-11-30 11:52] VITALS: BP 129/78
[2016-11-30 14:33] VITALS: BP 114/64
--- NOTE | 2016-11-30 18:00 | NUR ---
CHANGED DRESSINGS TO ABDOMEN. PACKED WET TO DRY. PATIENT TOLERATED WELL. ATTEMPTED TO START IV, X'S 2 UNSUCCESSFUL ATTEMPTS. ASSISTED PATIENT FROM THE CHAIR BACK TO BED.
[2016-11-30 22:11] VITALS: BP 130/77
[2016-12-01 02:59] VITALS: BP 137/82
--- NOTE | 2016-12-01 03:58 | NUR ---
PATIENT SLEEPING WITH NO DISTRESS NOTED. DRESSINGS TO ABD CDI. B/A ON.
[2016-12-01 06:52] LABS: BASOPHILS 0.2 % (0.0-2.0); EOSINOPHILS 0.2 % (0-7); HEMATOCRIT 32.4 % (42.0-54.0); HEMOGLOBIN 10.8 g/dL (13.5-17.5); IMMATURE GRANULOCYTES 0.5 % (0-5); LYMPHOCYTES 11.9 % (15-50); MCH 29.6 pg (26.0-34.0); MCHC 33.3 g/dL (31.0-37.0); MCV 88.8 fL (80.0-100.0); MEAN PLATELET VOLUME 9.9 fL (7.4-10.4); NEUTROPHILS 71.2 % (40-80); PLATELET COUNT 368 10x3/uL (130-400); RBC 3.65 10x6/uL (4.20-6.10); RDW 14.1 % (11.5-14.5); WBC 5.6 10x3/uL (4.8-10.8)
--- NOTE | 2016-12-01 07:00 | NUR ---
PT REC'D FROM [facility]NA WHALEY. RESTING IN BED WITH EYES CLOSED. NO SIGNS OF DISTRESS. RESP EVEN AND UNLABORED. BED LOW, CALL LIGHT IN REACH, WILL CPOC.
[2016-12-01 07:10] LABS: ANION GAP 12.2 mmol/L (8-16); CALCIUM 8.8 mg/dL (8.5-10.1); CARBON DIOXIDE 30.9 mmol/L (21.0-32.0); CREATININE - SERUM 1.2 mg/dL (0.6-1.3)
[2016-12-01 07:13] LABS: MAGNESIUM - SERUM 2.5 mg/dL (1.8-2.4); POTASSIUM - SERUM 5.1 mmol/L (3.5-5.1)
--- NOTE | 2016-12-01 07:45 | NUR ---
PATIENT IN BED WITH EYES CLOSED RESTING AT THIS TIME. IV INTACT. CALL LIGHT WITHIN REACH.
[2016-12-01 08:47] VITALS: BP 148/75
--- NOTE | 2016-12-01 08:55 | NUR ---
MORNING MEDS PASSED. PT SITTING UP IN BED EATING BREAKFAST WITH DAUGHTER IN ROOM. NICOTINE PATCH APPLIED TO L SHOULDER. ABD ROUND, BOWEL SOUNDS HYPOACTIVE, DRESSING TO R LOWER ABD HAS SOME SEROSANGUINOUS DRAINAGE THAT IS DRY. SLIGHT PAIN TO PALPATION. WILL CHANGE DRESSING. BED LOW, CALL LIGHT IN REACH, DENIES NEEDS, WILL CPOC.
[2016-12-01 11:58] VITALS: BP 126/70
--- NOTE | 2016-12-01 12:34 | NUR ---
20 TRI MASCORRO SITED BY TYRON RUELAS, TO [facility]alia FA.
--- NOTE | 2016-12-01 14:53 | NUR ---
CHANGED ABDOMINAL DRESSINGS. PACKED WITH KERLIX, WET TO DRY.
[2016-12-01 15:11] VITALS: BP 151/83
[2016-12-01 20:30] VITALS: BP 122/62
--- NOTE | 2016-12-02 00:15 | NUR ---
ASSISTED WITH PULLING PT UP IN BED FROM LINEN CHANGE FROM BOWEL MOVEMENT. IV PATENT AND FLUIDS RUNNING PER ORDER. SCD'S ON. BED ALARM ON FOR SAFETY. DRESSINGS TO ABDOMEN C/D/I. SIDE RAILS ARE UP X 2. BED IS LOW. CALL LIGHT IS IN REACH.
--- NOTE | 2016-12-02 00:39 | NUR ---
PT STATED THAT HE DID NOT WANT HIS 0100 TX, THAT HE DID NOT WANT TO BE DISTURBED, PER PATIENTS WISHES DID NOT GIVE TX.
[2016-12-02 01:00] VITALS: BP 130/66
[2016-12-02 05:30] VITALS: BP 132/65
[2016-12-02 06:19] LABS: BASOPHILS 0.1 % (0.0-2.0); EOSINOPHILS 0.2 % (0-7); HEMATOCRIT 28.8 % (42.0-54.0); HEMOGLOBIN 9.4 g/dL (13.5-17.5); IMMATURE GRANULOCYTES 0.3 % (0-5); LYMPHOCYTES 8.7 % (15-50); MCH 29.6 pg (26.0-34.0); MCHC 32.6 g/dL (31.0-37.0); MCV 90.6 fL (80.0-100.0); MEAN PLATELET VOLUME 9.6 fL (7.4-10.4); MONOCYTES 9.2 % (2-11); NEUTROPHILS 81.5 % (40-80); PLATELET COUNT 402 10x3/uL (130-400); RBC 3.18 10x6/uL (4.20-6.10); RDW 14.3 % (11.5-14.5)
[2016-12-02 06:31] LABS: WBC 10.1 10x3/uL (4.8-10.8)
[2016-12-02 06:45] LABS: ANION GAP 8.8 mmol/L (8-16); CALCIUM 8.1 mg/dL (8.5-10.1); CREATININE - SERUM 1.4 mg/dL (0.6-1.3); MAGNESIUM - SERUM 2.1 mg/dL (1.8-2.4)
[2016-12-02 06:46] LABS: POTASSIUM - SERUM 3.8 mmol/L (3.5-5.1)
--- NOTE | 2016-12-02 08:00 | NUR ---
ASSISTED PT UP TO BEDSIDE COMMODE. INSTRUCTED PT TO PRESS CALL LIGHT WHEN FINISHED.
[2016-12-02 08:39] VITALS: BP 115/61
--- NOTE | 2016-12-02 10:16 | NUR ---
AM MEDS GIVEN. PT DENIES FURTHER NEEDS AT THIS TIME. BED LOW. PHONE AND CALL LIGHT IN REACH. SIDE RAILS UP X2.
--- NOTE | 2016-12-02 10:29 | NUR ---
PT RESTING QUIETLY WITH EYES CLOSED. NO ACUTE DISTRESS NOTED. BED LOW. PHONE AND CALL LIGHT IN REACH. SIDE RAILS UP X2.
--- NOTE | 2016-12-02 11:24 | NUR ---
PATIENT SITTING UP IN CHAIR TO RECEIVE HIS MEDICATIONS. HE'S JUST RETURNED TO BED AFTER AMBULATING IN THE HALLWAY. HIS IV TO THE RIGHT FOREARM IS PATENT TO FLUSH.
--- NOTE | 2016-12-02 12:00 | NUR ---
PT REQUESTED TO BE MOVED FROM CHAIR TO BED. ASSISTED PT BACK TO BED. DENIES OTHER NEEDS. BED LOW. PHONE AND CALL LIGHT IN REACH. SIDE RAILS UP X2.
--- NOTE | 2016-12-02 12:29 | NUR ---
PT SITTING UP IN BED EATING LUNCH. SPOUSE AT BEDSIDE.
--- NOTE | 2016-12-02 12:32 | NUR ---
CM REASSESSMENT NOTE: PATIENT STATED HE DID NOT WANT IP REHAB AT THIS TIME. HE CHOSE [facility] AND (TREASURE) SIGNED THE [place] FORM.
[2016-12-02 12:48] VITALS: BP 137/82
--- NOTE | 2016-12-02 13:25 | NUR ---
RESPIRATORY IN ROOM WITH PT. NO NEEDS NOTED AT THIS TIME.
--- NOTE | 2016-12-02 13:49 | NUR ---
PT SITTING UP IN CHAIR. REQUESTS AN EXTRA PILLOW BE PLACED BEHIND HIM. DENIES OTHER NEEDS.
--- NOTE | 2016-12-02 14:59 | NUR ---
PT RESTING QUIETLY IN BED WITH EYES CLOSED. SPOUSE AT BEDSIDE. NO ACUTE DISTRESS NOTED AT THIS TIME.
--- NOTE | 2016-12-02 15:40 | NUR ---
NOTIFIED DR. MARLEY CONCERNING PT'S STOOL. HE STATED TO OBTAIN AN OCCULT BLOOD STOOL SPECIMEN. DR MARLEY ALSO STATED THAT PT WAS TO BE NPO STARTING AT MIDNIGHT FOR A DRAIN PLACEMENT IN THE AM.
--- NOTE | 2016-12-02 15:45 | NUR ---
PT AIRPLANE PILOT COMMERCIAL LIGHT. STATES HE NEEDS A NEW BRIEF. ASSISTED PT TO SIDE LYING POSITION TO CHANGE BRIEF AND CLEAN PT. PT STATES HE IS GOING TO USE THE RESTROOM AGAIN. ASSISTED TO BEDSIDE COMMODE. DARK LIQUIDY STOOL WITH RED TINGED RIM NOTED TO BED PAD AND BRIEF. OBTAINED STOOL SPECIMEN PER ORDERS. BED LINENS AND GOWN CHANGED PER HUDSON. ASSISTED PT BACK TO BED. REQUESTS ICE WATER. DENIES OTHER NEEDS. BED LOW. PHONE AND CALL LIGHT IN REACH. SIDE RAILS UP X2.
[2016-12-02 16:46] VITALS: BP 134/86
--- NOTE | 2016-12-02 16:50 | NUR ---
BEGAN INFUSING ZOSYN IVPB. PT DENIES NEEDS AT THIS TIME. BED LOW. PHONE AND CALL LIGHT IN REACH. SIDE RAILS UP X2.
--- NOTE | 2016-12-02 18:11 | NUR ---
CHANGED ABDOMINAL DRESSINGS. OLD DRESSINGS REMOVED WITHOUT DIFFICULTY. YELLOW/BROWN TINGE NOTED TO GAUZE PADS. NO FOUL ODOR NOTED TO GAUZE PADS OR WOUND BED. NO REDNESS OR SWELLING NOTED TO SKIN SURROUNDING WOUND. WOUND BEDS FLESHY PINK. FILLED /C WET TO DRY GAUZE PADS. COVERED WITH ABDOMINAL PAD AND TAPED. PT TOLERATED WELL. DENIES INCREAED PAIN. BED LOW. PHONE AND CALL LIGHT IN REACH. SIDE RAILS UP X2.
[2016-12-03] VITALS (18 sets, daily range): BP systolic 95–121; BP diastolic 53–95
--- NOTE | 2016-12-03 03:47 | NUR ---
PT IN BED WITH NO DISTRESS. SIDE RAILS ARE UP X 2. BED IS IN LOWEST POSITION. WIL MAT IS ON. CALL LIGHT IS WITHIN REACH.
--- NOTE | 2016-12-03 08:45 | NUR ---
PT TEMP 100.4. ADMINISTERED 500 MG TYLENOL PO. DENIES NEEDS AT THIS TIME.
--- NOTE | 2016-12-03 09:11 | NUR ---
PT LYING IN BED RESTING WITH EYES CLOSED, EASILY AROUSED. ADMINISTERED BYSTOLIC PO. PROTONIX IVP. HUNG NEW BAG OF ZOFRAN. CT IN ROOM TO RETRIEVE PT FOR PROCEDURE. CONSENT SIGNED AND ON CHART.
--- NOTE | 2016-12-03 10:46 | NUR ---
CONTACTED PT'S SPOUSE CONCERNING BOWEL REPAIR. SPOUSE VOICED UNDERSTANDING AND STATES SHE WILL BE UP HERE LATER.
[2016-12-03 10:48] LABS: ANION GAP 9.8 mmol/L (8-16); BASOPHILS 0.1 % (0.0-2.0); CALCIUM 8.1 mg/dL (8.5-10.1); CARBON DIOXIDE 26.7 mmol/L (21.0-32.0); CREATININE - SERUM 1.4 mg/dL (0.6-1.3); EOSINOPHILS 0.6 % (0-7); HEMATOCRIT 25.3 % (42.0-54.0); HEMOGLOBIN 8.3 g/dL (13.5-17.5); IMMATURE GRANULOCYTES 0.3 % (0-5); LYMPHOCYTES 11.4 % (15-50); MCH 29.9 pg (26.0-34.0); MCHC 32.8 g/dL (31.0-37.0); MEAN PLATELET VOLUME 9.5 fL (7.4-10.4); MONOCYTES 10.3 % (2-11); NEUTROPHILS 77.3 % (40-80); PLATELET COUNT 387 10x3/uL (130-400); POTASSIUM - SERUM 3.5 mmol/L (3.5-5.1); RBC 2.78 10x6/uL (4.20-6.10); RDW 14.4 % (11.5-14.5); WBC 9.9 10x3/uL (4.8-10.8)
--- NOTE | 2016-12-03 10:56 | NUR ---
PT RESTING QUIETLY WITH EYES CLOSED. AROUSED EASILY. NO ACUTE DISTRESS NOTED AT THIS TIME. REFUSED NICOTINE PATCH AT THIS TIME. BED LOW. PHONE AND CALL LIGHT IN REACH. SIDE RAILS UP X2.
--- NOTE | 2016-12-03 12:45 | NUR ---
NOTIFIED DR. MARLEY CONCERNING PT'S HGB OF 8.3 AND HCT OF 25.3. HE STATES TO ORDER A NEW TYPE AND SCREEN PRIOR TO PROCEDURE.
--- NOTE | 2016-12-03 13:30 | NUR ---
PT LYING IN BED RESTING WITH EYES CLOSED. AROUSED EASILY. SPOUSE AT BEDSIDE. CONSENTS SIGNED AND ON CHART. PT AND SPOUSE VERBALIZED UNDERSTANDING OF PROCEDURE. PRE-OP MEDS GIVEN. TRANSFER TO SURGERY VIA BED. ACCOMPANIED BY JENNIFER BROOMCORN GRADER.
--- NOTE | 2016-12-03 14:56 | NUR ---
NUTRITION MONITORING & EVAL CHART REVIEWED. PT NOW NPO FOR PROCEDURE. WILL MONITOR DIET ADVANCEMENT, PT PROGRESS. RD FOLLOWING
--- NOTE | 2016-12-03 18:36 | NUR ---
PATIENT ARRIVED FROM THE OR VIA BED. PATIENT HAS A FAR OFF STARE IN HIS EYES AND DOESN'T BLINK UNLESS YOU VERBALLY GET HIS ATTENTION. AT THIS TIME HE IS DENYING ANY PAIN. HOOKED UP TO VITAL MACHINE. OXYGEN AT 2L N/C. LUNGS CTA AT THIS TIME. MIDLINE TO HIS ABD. THERE IS A JM DRESSING HOOKED UP TO THE PORTABLE PUMP. TO HIS LEFT MID/LOWER QUAD THERE IS A COLOSTOMY BAG THAT HAS A SCANT AMOUNT OF BLOOD PRESENT. JUST BELOW THIS THERE IS A DAMION DRAIN THAT IS INTACT AND HAS @10CC OF BLOOD NOTED IN BULB. TO HIS RIGHT MID QUAD THERE IS ANOTHER DAMION DRAIN WITH APPROX THE SAME AMOUNT OF BLOOD NOTED IN THE BULB. [facility] CATH IS PRESENT WITH DARK YELLOW URINE NOTED. THERE IS NO STAT LOCK. WILL TRY TO LOCATE ANOTHER STAT LOCK. PATIENT IS C/O BEING COLD. COVERED WITH WARM BLANKET UNDER BEDDING. DENIES NEEDS. WENT TO THE WAITING ROOM TO LOCATE PATIENTS AND DAUGHTER. BOTH DENY QUESTIONS.
[2016-12-03 19:42] LABS: ANION GAP 16.2 mmol/L (8-16); CALCIUM 7.7 mg/dL (8.5-10.1); CARBON DIOXIDE 20.1 mmol/L (21.0-32.0); CREATININE - SERUM 1.6 mg/dL (0.6-1.3); MAGNESIUM - SERUM 1.9 mg/dL (1.8-2.4)
[2016-12-03 19:52] LABS: POTASSIUM - SERUM 4.3 mmol/L (3.5-5.1)
[2016-12-03 20:08] LABS: BASOPHILS 0.5 % (0.0-2.0); EOSINOPHILS 0.3 % (0-7); IMMATURE GRANULOCYTES 0.3 % (0-5); LYMPHOCYTES 13.3 % (15-50); MCH 29.7 pg (26.0-34.0); MCHC 32.4 g/dL (31.0-37.0); MCV 91.7 fL (80.0-100.0); MEAN PLATELET VOLUME 9.9 fL (7.4-10.4); MONOCYTES 6.6 % (2-11); RDW 14.6 % (11.5-14.5)
[2016-12-03 20:16] LABS: HEMATOCRIT 35.2 % (42.0-54.0); HEMOGLOBIN 11.4 g/dL (13.5-17.5); PLATELET COUNT 485 10x3/uL (130-400); RBC 3.84 10x6/uL (4.20-6.10); WBC 6.2 10x3/uL (4.8-10.8)
--- NOTE | 2016-12-03 20:45 | NUR ---
RT AT BEDSIDE FOR TREATMENT. PT STATING PAIN BETTER BUT OCCASIONALLY CRYING OUT IN PAIN STATING HE IS STILL HAVING SOME SHARP PAINS. LIGHT WARM BLANKET PLACED OVER ABDOMEN FOR COMFORT
--- NOTE | 2016-12-03 20:47 | NUR ---
PT STATES PAIN IS "A LITTLE BIT BETTER BUT STILL HORRIBLE. GIVEN 2MG BOLUS PER ORDER
--- NOTE | 2016-12-03 21:11 | NUR ---
PT RESTING MORE COMFORTABLY ON SIDE WITH KNEES DRAWN UP SOMEWHAT. NO VISITORS AT THIS TIME
--- NOTE | 2016-12-03 23:00 | NUR ---
SHIFT REASSESSMENT COMPLETED. CUFF SETTER MORPHINE PROVIDING AEDQUATE PAIN MANAGEMENT. PT DOES OCCASIONALLY CRY OUT WITH BREAKTHROUGH PAIN QUICKLY RESOLVED. TURNING AND REPOSITIONING Q2H TOLERATING.
[2016-12-04] VITALS (25 sets, daily range): BP systolic 96–151; BP diastolic 32–87
--- NOTE | 2016-12-04 00:49 | NUR ---
SPOKE AT LENGTH WITH KAE, DAUGHTER, AFTER VERIFYING PASSWORD. UPDATE GIVEN AND QUESTIONS ANSWERED
--- NOTE | 2016-12-04 01:15 | NUR ---
PAGED DR. HUGHES, MOTORCYCLE ASSEMBLER FOR DR. MARLEY TO REPORT DECREASED HOURLY URINE OUTPUTS.
--- NOTE | 2016-12-04 01:30 | NUR ---
SPOKE WITH DR. HUGHES AND REPORTED THE PAST 2 HOURS HAVE HAD A URINE OUTPUT OF <THE EXPECTED >60CC AN HOUR. PT HAS HAD ONE FLUID CHALLENGE. DISCUSSED THE LAB VALUES OF PT ALSO LACTIC ACID AND WBC AND ABT ORDERED. NEW ORDERS RECEIVED AND READ BACK TO VERIFY. DIE ASSEMBLER NOTIFIED OF NEED FOR ALBUMIN. PT TEACHING DONE IN REGARDS TO PLAN OF ACTION. PT VERBALIZED COMPRHENSION
--- NOTE | 2016-12-04 03:00 | NUR ---
SHIFT REASSESSMENT COMPLETED AND PT HAS HAD A DEFINATE POSITIVE RESPONSE TO MEDS ORDERED PER DR. HUGHES. URINARY OUTPUT HAS INCREASED SIGNIFICANTLY
--- NOTE | 2016-12-04 04:00 | NUR ---
RIGHT DAMION CONTINUES TO BE BLOODY BUT THE LEFT IS BECOMING MORE SEROUS
--- NOTE | 2016-12-04 04:10 | NUR ---
PT OBSERVED TO HAVE THE NG TUBE LYING NEXT TO HIM IN BED. HE HAD REMOVED IT. LESS THAN 25CC OUTPUT IN CANNISTER. WILL NOT REPLACE AT THIS TIME. PT NOTED TO BE SOMEWHAT CONFUSED BUT PLEASANT.
--- NOTE | 2016-12-04 04:14 | NUR ---
PT GIVEN BOLUS DOSE OF 2MG MORPHINE VIA EQUIPMENT INSPECTOR PER ORDER FOR PAIN MANAGEMENT.
--- NOTE | 2016-12-04 04:20 | NUR ---
RADIOLOGY AT BEDSIDE FOR AM CXR
[2016-12-04 05:07] LABS: BASOPHILS 0.1 % (0.0-2.0); EOSINOPHILS 0 % (0-7); HEMATOCRIT 30.9 % (42.0-54.0); HEMOGLOBIN 10.1 g/dL (13.5-17.5); IMMATURE GRANULOCYTES 0.8 % (0-5); LYMPHOCYTES 4.1 % (15-50); MCH 29.6 pg (26.0-34.0); MCHC 32.7 g/dL (31.0-37.0); MCV 90.6 fL (80.0-100.0); MEAN PLATELET VOLUME 10.5 fL (7.4-10.4); MONOCYTES 6.5 % (2-11); NEUTROPHILS 88.5 % (40-80); PLATELET COUNT 467 10x3/uL (130-400); RBC 3.41 10x6/uL (4.20-6.10); RDW 14.7 % (11.5-14.5)
[2016-12-04 05:16] LABS: WBC 15.5 10x3/uL (4.8-10.8)
[2016-12-04 05:32] LABS: ANION GAP 21.4 mmol/L (8-16); CARBON DIOXIDE 20.2 mmol/L (21.0-32.0); CREATININE - SERUM 1.8 mg/dL (0.6-1.3); POTASSIUM - SERUM 4.6 mmol/L (3.5-5.1)
[2016-12-04 05:52] LABS: CALCIUM 6.7 mg/dL (8.5-10.1)
--- NOTE | 2016-12-04 06:11 | NUR ---
PT VERY CONFUSED AND WHEN REORIENTATED CONTINUES TO BE CONFUSED. BELIEVES HE IS IN MY OFFICE TO BUY A NEW CAR. PT SMILING, DENIES PAIN. DID RECOGNIZE HE HAD SURGERY YESTERDAY WHEN SHOWN HIS ABDOMEN. WILL CONTINUE TO MONITOR
--- NOTE | 2016-12-04 07:30 | NUR ---
0730- REC'D PT AAO X4. ASSESSMENT COMPLETE. SEE FLOWSHEET. PT ON 2 LPM VIA N.C. O2 SAT 98%. LEFT HAND PIV INTACT. PEDAL PULSE ABSENT ON LEFT EXTREMITY. NOT ABLE TO FIND WITH DOPPLER. FOOT COOL. WRAPPED WITH WARM BLANKET. 0830- RECHECKED PEDAL PULSE. REMAINS ABSENT TO PALPATION AND DOPPLER. DR MARLEY NOTIFIED. DOPPLER STUDY ORDERED PER ORDER. 1045- PT GONE FOR CTA ABDOMEN. 1115- HEPARIN GTT INITIATED PER ORDER. 1330- PT GONE TO IR PER ORDER. CONSENT OBTAINED FROM IR STAFF. 1815- REC'D PT FROM IR. INTUBATED. RIGHT GROIN SHEATH NOTED INTACT, TPA 0.25 MG/HR AND HEPARIN GTT INFUSING AT 500 UNITS/HR PER ORDER. RIGHT PEDAL PULSE FOUND WITH DOPPLER. LEFT PEDAL REMAINS ABSENT. WRAPPED WITH WARM BLANKET. 1899- REPORT GIVEN TO TYRON HAYWOOD.
--- NOTE | 2016-12-04 07:59 | OP ---
PATIENT NAME: JANE YORK MEDICAL RECORD: [id number] :46 LOCATION:.[facility] D.[id number] ADMISSION DATE:11/25/16 SURGEON: RONNIE MARLEY MD DATE OF OPERATION: 12/03/2016 SURGEON: Ronnie Marley MD PREOPERATIVE DIAGNOSES: 1. Pelvic abscess. 2. Anastomotic leak. POSTOPERATIVE DIAGNOSES: 1. Pelvic abscess. 2. Anastomotic leak. PROCEDURES PERFORMED: 1. Exploratory laparotomy. 2. Lysis of adhesions. 3. Resection of colorectal anastomosis. 4. Drainage of intraabdominal abscess 5. Creation of end colostomy. 6. Incisional hernia repair Phasix mesh. 7. Small bowel resection. ANESTHESIA: General. COMPLICATIONS: None. ESTIMATED BLOOD LOSS: 200 cc. Case was grossly contaminated. OPERATIVE COURSE: After consent was obtained, the patient was taken to the operating room and placed in the supine position on the operating table. Anesthesia was given via endotracheal intubation after a timeout was taken to confirm the correct patient and procedure. The abdomen was prepped and draped in typical sterile fashion. A 5-mm trocar placement was attempted into the right upper quadrant. The small bowel was markedly dilated. It was very friable and densely adherent to the anterior abdominal wall. At this time, the trocars removed. A midline abdominal incision was made. Dissection continued to the level of the external oblique fascia. The fascia was incised with electrocautery. Once the incision was made, the remaining portion of peritoneum was opened under direct vision. An Prosper wound retractor was placed. There was feculent fluid floating throughout the abdominal cavity and pelvis, which was copiously suctioned, approximately 5 liters of irrigation were used to clean the abdomen and performed abdominal washout. The small bowel was mobilized and these were taken off the anterior abdominal wall, multiple serosal defects were created and closed with 3-0 silk suture. The mesenteric defect was noted during the intraabdominal small bowel lysis of adhesions onto the mesenteric defects that necessitated a 3-cm small bowel resection that was performed with a functional rmdl-wi-htpi anastomosis using the 55 mm MINA stapler. The bowel was noted from the ligament of Treitz to the terminal ileum on 3 separate occasions, again at which time all serosal defects were repaired using 3-0 silk suture. The anastomosis appeared healthy. Once the bowel was mobilized, it was delivered towards the left upper quadrant. There was a large walled off abscess OPERATIVE REPORT [id number] JANE YORK in the pelvis between the cecum and the colorectal anastomosis. The colorectal hemostasis was almost completely due to irrigate it, it was only intact in approximately 1/4 of the rectal wall. There was gross drainage of feces. The anastomosis was resected and the pelvis was again copiously irrigated and suctioned. The rectum was closed with a #1 Prolene suture. The colon was mobilized off the left pelvic side wall and delivered through the old ostomy site on the abdominal skin. Two DAMION drains were placed, a right lower quadrant DAMION drain was placed into the pelvis. A left lower quadrant DAMION drain was placed in the left pericolic gutter. There was a large incisional hernia defect in the midline of the abdomen. The hernia sac was excised, subcutaneous flaps were created along the external oblique fascia. The abdominal cavity was again copiously irrigated and suctioned many ?time, the small bowel was one additional time from the ligament of Treitz to terminal ileum. There was no evidence of bowel injury or leak. At this time, the midline abdominal incision was closed using #1 looped PDS. A Phasix mesh was secured in an onlay fashion using 3-0 Vicryl suture. The incision was closed with jonas. A Prevena wound VAC system was placed over the midline incision. The ostomy was then matured in a Nisha fashion with 3-0 Vicryl suture. An ostomy bag was cut to size and placed over the colostomy. The DAMION drains were placed to bulb suction. At the end of the case, all needle and instrument counts were correct. No complications occurred. The patient was extubated and transferred to the PACU in stable condition. TRANSINT:[id number] Voice Confirmation ID: [id number] DOCUMENT ID: [id number] RONNIE MARLEY MD at 0759 CC: [id number] DICTATION DATE: 12/03/161754 DIGITAL ANALYST: 12/03/162228 ADM IN [place] [id number]
--- NOTE | 2016-12-04 09:55 | NUR ---
NUTRITION MONITORING & EVAL CHART REVIEWED. PT NPO S/P PROCEDURE. WILL MONITOR DIET ADVANCEMENT, PT PROGRESS. RD FOLLOWING
[2016-12-04 10:42] LABS: HEMATOCRIT 28.1 % (42.0-54.0); HEMOGLOBIN 9.3 g/dL (13.5-17.5); MCH 30.1 pg (26.0-34.0); MCHC 33.1 g/dL (31.0-37.0); MCV 90.9 fL (80.0-100.0); RBC 3.09 10x6/uL (4.20-6.10); RDW 15.1 % (11.5-14.5); WBC 13.7 10x3/uL (4.8-10.8)
[2016-12-04 10:54] LABS: INR 1.47 (0.85-1.17); PROTIME 17.7 SECONDS (11.6-15.0)
--- NOTE | 2016-12-04 19:30 | NUR ---
PT SEDATED AND INTUBATED. OPENS EYES AND FOLLOWS SIMPLE COMMANDS. LUNG SOUNDS CLEAR/DIMINISHED, SPO2 97. RT GROIN SHEATH INTACT WITH DSG CLEAN AND DRY. RT PEDAL PULSE PRESENT WITH DOPPLER. LT PEDAL PULSE ABSENT, LT POPLITEAL PULSE PRESENT WITH DOPPLER. ABD WITH MIDLINE INCISION, WOUND VAC PRESENT. LT MID QUAD COLOSTOMY CDI. BILATERAL MID ABD DAMION DRAINS INTACT. PT REPOSITIONED. ORAL CARE ADM. NO S/S OF ACUTE DISTRESS NOTED AT THIS TIME. ROOM VISIBLE FROM NURSES STATION. CPOC.
[2016-12-04 19:42] LABS: BASOPHILS 0.1 % (0.0-2.0); EOSINOPHILS 0 % (0-7); HEMATOCRIT 25.8 % (42.0-54.0); HEMOGLOBIN 8.6 g/dL (13.5-17.5); IMMATURE GRANULOCYTES 0.7 % (0-5); LYMPHOCYTES 3.7 % (15-50); MCH 29.9 pg (26.0-34.0); MCHC 33.3 g/dL (31.0-37.0); MCV 89.6 fL (80.0-100.0); MEAN PLATELET VOLUME 9.8 fL (7.4-10.4); MONOCYTES 8.7 % (2-11); NEUTROPHILS 86.8 % (40-80); PLATELET COUNT 452 10x3/uL (130-400); RBC 2.88 10x6/uL (4.20-6.10); RDW 14.7 % (11.5-14.5); WBC 13.9 10x3/uL (4.8-10.8)
[2016-12-04 19:51] LABS: APTT 30.5 SECONDS (22.8-39.4); INR 1.47 (0.85-1.17); PROTIME 17.7 SECONDS (11.6-15.0)
--- NOTE | 2016-12-04 21:30 | NUR ---
AYAKA AT BEDSIDE, FAMILY UPDATED AND QUESTIONS ANSWERED.
--- NOTE | 2016-12-04 21:48 | OP ---
PATIENT NAME: JANE YORK MEDICAL RECORD: [id number] :48 LOCATION:[facility] D.2313 ADMISSION DATE:11/25/16 SURGEON: RONNIE MARLEY MD DATE OF OPERATION: 12/04/2016 SURGEON: Ronnie Marley MD PREOPERATIVE DIAGNOSIS: Intra-abdominal foreign body. POSTOPERATIVE DIAGNOSIS: Intraabdominal foreign body. PROCEDURE PERFORMED: Diagnostic laparoscopy, removal of foreign body. Fluoroscopy with immediate interpretation. ANESTHESIA: General. COMPLICATIONS: Foreign body. ESTIMATED BLOOD LOSS: 10 cc. SPECIMENS: Lap, sponge. Case was clean. ANESTHESIA: General. OPERATIVE COURSE: After consent was obtained, the patient was taken to the operating room and placed in supine position on the operating table. Next, general anesthesia was given via endotracheal intubation after a timeout was taken to confirm the correct patient and procedure. The abdomen was prepped and draped in typical sterile fashion. Local anesthetic was injected in the left upper quadrant at Correa's point. A stab incision was made with an 11-blade scalpel. Using a 5-mm bladeless optical trocar, the abdomen was entered under direct laparoscopic vision. Adequate pneumoperitoneum was achieved. The abdominal cavity was inspected. No evidence of bowel injury. No evidence of bleeding. The bowel was gently swept of the abdominal wall. A second 5-mm trocar was placed into the left upper quadrant. The left lower quadrant was meticulously inspected. The foreign body cannot be found under direct laparoscopy. The C-arm was then used under fluoroscopy. The foreign body was identified in the left upper quadrant. The bowel was gently mobilized at the left upper quadrant. The lap sponge was identified. A small incision was then made in the left upper quadrant for removal of foreign body. The skin was incised with a #15 blade scalpel. The incision was extended through the 2 trocars. Approximately a 6-cm incision was made. The dissection continued through the external and internal oblique fascia with electrocautery. The peritoneum was incised with Metzenbaum scissors. The foreign body was removed through the incision. The area in question was then irrigated and suctioned. Careful attention was paid to hemostasis. There was no evidence of bleeding, no evidence of bowel injury. The incision was then closed with an 0 Vicryl suture, subcutaneous tissue was closed with a 3-0 Vicryl suture. The skin was closed with jonas. At the end of the case, all needle and instrument counts were correct. The patient was transferred to the ICU, intubated in satisfactory condition. TRANSINT:[id number] Voice Confirmation ID: [id number] DOCUMENT ID: [id number] OPERATIVE REPORT [id number] JANE YORK,RONNIE May MD at 2148 CC: [id number] DICTATION DATE: 12/04/16 162 DISCHARGE COORDINATOR: 12/04/162004 ADM IN [facility] [address] [place] [address]
--- NOTE | 2016-12-04 23:30 | NUR ---
REASSESSMENT COMPLETE, SEE FLOWSHEET FOR ALL FINDINGS. NO ACUTE CHANGES AT THIS TIME. PT REPOSITIONED WITH BONY PROMINENCES BRIDGED. RT PEDAL PULSE PRESENT, LT PEDAL PULSE ABSENT. LT POPLITEAL PULSE PRESENT WITH DOPPLER.
[2016-12-04 23:32] LABS: HEMATOCRIT 23.8 % (42.0-54.0); HEMOGLOBIN 7.8 g/dL (13.5-17.5)
[2016-12-05] VITALS (38 sets, daily range): BP systolic 102–140; BP diastolic 59–86
--- NOTE | 2016-12-05 00:05 | NUR ---
PRBC INFUSION STARTED PER ORDERS. VSS. PT REPOSITIONED.
[2016-12-05 00:59] LABS: APTT 35.7 SECONDS (22.8-39.4); INR 1.43 (0.85-1.17); PROTIME 17.4 SECONDS (11.6-15.0)
--- NOTE | 2016-12-05 03:33 | NUR ---
REASSESSMENT COMPLETE, SEE FLOWSHEET FOR ALL FINDNGS. SECOND UNIT OF PRBC'S COMPLETED, NO S/S OF REACTION NOTED. PT REPOSITIONED, PARTIAL LINEN CHANGE. ORAL CARE ADM. ROOM VISIBLE FROM NURSES STATION. CPOC.
[2016-12-05 05:08] LABS: BASOPHILS 0.1 % (0.0-2.0); EOSINOPHILS 0 % (0-7); IMMATURE GRANULOCYTES 0.4 % (0-5); LYMPHOCYTES 4.9 % (15-50); MCH 29.9 pg (26.0-34.0); MCHC 33.2 g/dL (31.0-37.0); MCV 89.9 fL (80.0-100.0); MONOCYTES 8.9 % (2-11); NEUTROPHILS 85.7 % (40-80); PLATELET COUNT 370 10x3/uL (130-400); RBC 3.18 10x6/uL (4.20-6.10); RDW 14.3 % (11.5-14.5); WBC 12.3 10x3/uL (4.8-10.8)
[2016-12-05 05:11] LABS: HEMATOCRIT 28.6 % (42.0-54.0); HEMOGLOBIN 9.5 g/dL (13.5-17.5)
[2016-12-05 05:25] LABS: APTT 29.4 SECONDS (22.8-39.4); INR 1.28 (0.85-1.17); PROTIME 15.9 SECONDS (11.6-15.0)
--- NOTE | 2016-12-05 05:30 | NUR ---
LINEN CHANGE, PT REPOSITIONED WITH BONY PROMINENCES BRIDGED. ORAL CARE ADM. VSS. LT PEDAL PULSE REMAINS ABSENT. LT POPLITEAL PULSE PRESENT WITH DOPPLER. LT LEG WARM TO TOUCH MID CALF UP, COOL TO TOUCH BELOW MID CALF. RT PEDAL PULSE PRESENT WITH DOPPLER. ROOM VISIBLE FROM NURSES STATION. CPOC.
[2016-12-05 05:37] LABS: ANION GAP 11.2 mmol/L (8-16); CALCIUM 7.7 mg/dL (8.5-10.1); CARBON DIOXIDE 24.1 mmol/L (21.0-32.0); CREATININE - SERUM 1.6 mg/dL (0.6-1.3); MAGNESIUM - SERUM 2.2 mg/dL (1.8-2.4); PHOSPHOROUS 2.6 mg/dL (2.5-4.9); POTASSIUM - SERUM 4.3 mmol/L (3.5-5.1)
--- NOTE | 2016-12-05 07:30 | NUR ---
0730- REC'D PT SEDATED AND VENTILATED. ASSESSMENT COMPLETE. SEE FLOWSHEET. RIGHT SHEATH INTACT INFUSING HEPARIN AND TPA. PEDAL PULSE TO LEFT FOOT REMAINS ABSENT. MOTTLED. WRAPPED IN WARM BLANKET. TEMP 102.[address] MARLEY NOTIFIED. NEW ORDERS REC'D.
--- NOTE | 2016-12-05 09:45 | NUR ---
0945- PT RESTING ON VENT. FAMILY AT BEDSIDE. AWAITING IR PROCEDURE.
--- NOTE | 2016-12-05 10:47 | NUR ---
IR AT BEDSIDE TO TAKE PT TO PROCEDURE.
--- NOTE | 2016-12-05 11:50 | NUR ---
1150- PT BACK FROM IR. UNABLE TO OPEN FLOW TO LEFT LOWER LEG. FAMILY AT BEDSIDE. AWAITING DR CORREA TO SEE PT AND PT FAMILY REGARDING POC. 1355- BLOOD DRAWN AT BEDSIDE AND SENT TO LAB. DR CORREA AT BEDSIDE. PLANS FOR SURGERY TOMORROW.
[2016-12-05 13:32] LABS: BASOPHILS 0.1 % (0.0-2.0); EOSINOPHILS 0 % (0-7); HEMATOCRIT 28.1 % (42.0-54.0); HEMOGLOBIN 9.6 g/dL (13.5-17.5); IMMATURE GRANULOCYTES 0.8 % (0-5); MCH 30.6 pg (26.0-34.0); MCHC 34.2 g/dL (31.0-37.0); MCV 89.5 fL (80.0-100.0); MEAN PLATELET VOLUME 9.9 fL (7.4-10.4); MONOCYTES 10.1 % (2-11); PLATELET COUNT 338 10x3/uL (130-400); RBC 3.14 10x6/uL (4.20-6.10); RDW 14.6 % (11.5-14.5); WBC 13.1 10x3/uL (4.8-10.8)
[2016-12-05 14:56] LABS: INR 1.3 (0.85-1.17)
[2016-12-05 15:05] LABS: APTT 35.3 SECONDS (22.8-39.4)
--- NOTE | 2016-12-05 15:45 | NUR ---
1545- PT INTUBATED AND SEDATED. RESTING ON VENTILATOR. VSS. WILL CONTINUE TO MONITOR. 1700- SPOKE WITH DR HUTCHINS VIA PHONE. NEW ORDERS REC'D.
[2016-12-05 18:24] LABS: BASOPHILS 0.1 % (0.0-2.0); EOSINOPHILS 0.1 % (0-7); HEMATOCRIT 28.4 % (42.0-54.0); HEMOGLOBIN 9.3 g/dL (13.5-17.5); IMMATURE GRANULOCYTES 0.5 % (0-5); LYMPHOCYTES 5.9 % (15-50); MCH 29.7 pg (26.0-34.0); MCHC 32.7 g/dL (31.0-37.0); MCV 90.7 fL (80.0-100.0); MEAN PLATELET VOLUME 10.2 fL (7.4-10.4); MONOCYTES 8.9 % (2-11); NEUTROPHILS 84.5 % (40-80); PLATELET COUNT 342 10x3/uL (130-400); RBC 3.13 10x6/uL (4.20-6.10); RDW 14.8 % (11.5-14.5); WBC 12.5 10x3/uL (4.8-10.8)
[2016-12-05 18:58] LABS: INR 1.29 (0.85-1.17)
--- NOTE | 2016-12-05 19:00 | NUR ---
1900: Left lower extrem with no pulse obtainable distally in posterior tibial or dorsalis pedis via palpation or doppler. Distal extrem is cold to touch and white in color. Motteling of foot is seen. Extrem wrapped with warm blanket. No SCD. Right groin dressing intact. No bleeding, oozing, or swelling at site is noted. No hematoma palpated. Right lower extrem warm to touch and dorsalis pedis easily obtained via doppler. SCD remains intact to Right lower extrem only. Pt remains on Heparin 1300 units/hr.
[2016-12-05 19:01] LABS: APTT 86.9 SECONDS (22.8-39.4)
--- NOTE | 2016-12-05 20:00 | NUR ---
2000: ABD appearence with multiple dressings, drains, and incisions. Midline ABD with approx 6-8" wound vac dressing intact with no leaks detected to 125 mmHG sx with scant output. Output cannister has quick absorbent in it so difficult to assess drainage color. Left upper quadrant of ABD with incision covered with telfa and 4x4's. No bleeding seen at site. LLQ of ABD with Colostomy with pink & moist stoma. Small amount pink clear liquid drainage in collection bag. Distal to Colostomy is DAMION to bulb sx with yellow/clear sx drainage. DAMION is marked #2. Right middle ABD with DAMION drain marked #1 to bulb suction with small amount of pink/clear sx drainage noted. OGT position confirmed with 30 cc air bolus and auscultation. Returned to LIS with green liquid output.
--- NOTE | 2016-12-05 23:00 | NUR ---
2300: Pt repositioned for comfort at this time. No change in pt RESP/CV/NV status. No change in IVF/UOP. Heparin remains at 1300 units/hr. No change in LLE from assessment; remains pulseless, cold, and motteled. Pt remains sedated with diprivan gtt.
[2016-12-06] VITALS (38 sets, daily range): BP systolic 114–150; BP diastolic 66–87
[2016-12-06 00:48] LABS: BASOPHILS 0.1 % (0.0-2.0); EOSINOPHILS 0.1 % (0-7); HEMATOCRIT 29.1 % (42.0-54.0); HEMOGLOBIN 9.8 g/dL (13.5-17.5); IMMATURE GRANULOCYTES 0.6 % (0-5); LYMPHOCYTES 6.9 % (15-50); MCH 30.2 pg (26.0-34.0); MCHC 33.7 g/dL (31.0-37.0); MCV 89.8 fL (80.0-100.0); MEAN PLATELET VOLUME 10.1 fL (7.4-10.4); MONOCYTES 7.8 % (2-11); NEUTROPHILS 84.5 % (40-80); PLATELET COUNT 379 10x3/uL (130-400); RBC 3.24 10x6/uL (4.20-6.10); RDW 14.8 % (11.5-14.5); WBC 14.1 10x3/uL (4.8-10.8)
[2016-12-06 00:52] LABS: APTT 36.5 SECONDS (22.8-39.4); INR 1.2 (0.85-1.17)
[2016-12-06 01:25] LABS: APPEARANCE CLOUDY (CLEAR); COLOR DK YELLOW (YELLOW)
[2016-12-06 01:26] LABS: BILIRUBIN 2+ (NEGATIVE); GLUCOSE NEGATIVE (NEGATIVE); KETONE NEGATIVE (NEGATIVE); LEUKOCYTE ESTERASE TRACE (NEGATIVE); NITRITE NEGATIVE (NEGATIVE); PROTEIN 1+ mg/dL (NEGATIVE)
[2016-12-06 01:29] LABS: BACTERIA MANY /hpf (NONE SEEN); EPITHELIAL CELLS 0-5 /hpf (0-5); HYALINE CAST OCC /lpf (NONE SEEN); MUCUS <1+ /lpf (NONE SEEN); RED CELLS - URINE 0-5 /hpf (0-5); WHITE CELLS - URINE 0-5 /hpf (0-5)
[2016-12-06 01:30] LABS: AMORPHOUS SEDIMENT >1+ /lpf (NONE SEEN)
--- NOTE | 2016-12-06 01:55 | NUR ---
0200: Heparin gtt off at this time.
--- NOTE | 2016-12-06 03:15 | NUR ---
0315: Pt hibiclens bath done at this time and linen changed. Pt repositioned for comfort with extrem off bed with pillow supports. Oral care done, De La Fuente care done, SCD removed during bath and replaced. No change in pt RESP/CV/NV status. Pt remains SR 90's on CM. Vent unchanged with pt RR 20's and SPO2 97%.
[2016-12-06 04:59] LABS: BASOPHILS 0.1 % (0.0-2.0); EOSINOPHILS 0.2 % (0-7); HEMATOCRIT 29.1 % (42.0-54.0); HEMOGLOBIN 9.6 g/dL (13.5-17.5); IMMATURE GRANULOCYTES 0.5 % (0-5); LYMPHOCYTES 5.9 % (15-50); MCH 29.8 pg (26.0-34.0); MCV 90.4 fL (80.0-100.0); MEAN PLATELET VOLUME 10.1 fL (7.4-10.4); MONOCYTES 8.3 % (2-11); PLATELET COUNT 382 10x3/uL (130-400); RBC 3.22 10x6/uL (4.20-6.10); RDW 14.7 % (11.5-14.5); WBC 13.1 10x3/uL (4.8-10.8)
[2016-12-06 05:38] LABS: ALBUMIN 1.5 g/dL (3.4-5.0); ALKALINE PHOSPHATASE 64 U/L (46-116); ALT (SGPT) 25 U/L (10-68); BILIRUBIN - TOTAL 3.56 mg/dL (0.2-1.3); CALC OSMOLALITY 289 mosm/kg (275-300); CALCIUM 7.9 mg/dL (8.5-10.1); CARBON DIOXIDE 24.7 mmol/L (21.0-32.0); CHLORIDE - SERUM 112 mmol/L (98-107); CREATININE - SERUM 1.5 mg/dL (0.6-1.3); GLUCOSE 101 mg/dL (74-106); MAGNESIUM - SERUM 2.4 mg/dL (1.8-2.4); POTASSIUM - SERUM 4.2 mmol/L (3.5-5.1); PROTEIN - SERUM 5.6 g/dL (6.4-8.2); SODIUM 144 mmol/L (136-145); UREA NITROGEN 22 mg/dL (7-18); eGFR NON AFRICAN AMERICAN 49 mL/min (90-120)
[2016-12-06 05:49] LABS: CREATINE KINASE 1733 UL (21-232)
[2016-12-06 05:50] LABS: CKMB 7.4 U/L (0.0-3.6)
--- NOTE | 2016-12-06 06:00 | NUR ---
0600: No change in pt RESP/CV/NV status. Pt remains on vent with RR 20x with SPo2 97%. Right middle quadrant DAMION site with dressing saturated. Changed dressing. DAMION with minimal output on that side. Pt remains SR 90's on CM with SBP 110-120. No change in IVF/UOP.
--- NOTE | 2016-12-06 09:42 | NUR ---
NUTRITION MONITORING & EVAL CHART REVIEWED. PT REMAINS ON VENT. FOR SURGERY TODAY. RECOMMEND CONSIDER NUTRITION SUPPORT WHEN MEDICALLY FEASIBLE. RD FOLLOWING
[2016-12-06 11:03] LABS: BASOPHILS 0.1 % (0.0-2.0); EOSINOPHILS 0.3 % (0-7); HEMATOCRIT 27.3 % (42.0-54.0); HEMOGLOBIN 9.2 g/dL (13.5-17.5); IMMATURE GRANULOCYTES 0.6 % (0-5); MCH 30.6 pg (26.0-34.0); MCHC 33.7 g/dL (31.0-37.0); MCV 90.7 fL (80.0-100.0); MONOCYTES 9.6 % (2-11); NEUTROPHILS 83.4 % (40-80); PLATELET COUNT 372 10x3/uL (130-400); RBC 3.01 10x6/uL (4.20-6.10); WBC 12.1 10x3/uL (4.8-10.8)
[2016-12-06 11:20] LABS: INR 1.13 (0.85-1.17); PROTIME 14.4 SECONDS (11.6-15.0)
[2016-12-06 11:23] LABS: APTT 26.8 SECONDS (22.8-39.4)
--- NOTE | 2016-12-06 12:09 | NUR ---
PT WITH DRESSINGS AND DRAIN INTACT TO ABDOMEN. COLOSTOMY BAG INTACT.
--- NOTE | 2016-12-06 18:45 | NUR ---
0715-RECIEVED PER FLOW [id number] [facility] CALLED UNIT--SPUTUM/R AND L J WALKER/-SAMPLES SENT FOR C AND [id number] AT BEDSIDE-QUESTIONS ANWERED 914-LAB AT BEDSIDE-VANC LEVEL [id number] LATHAM CALLED UNIT -CURRENT IV STATUS GIVEN-NO FURTHER ORDERS AT THIS TIME 1115-OR TEAM AT BEDSIDE-FAMILY NOTIFIED OF PT TRANSPORT TO OR 1345-RETURNED TO RM-VENT L AKA DRG DRY AND INTACT-L LEG ELEVATED-DIPRIVAN INFUSING
--- NOTE | 2016-12-06 18:55 | NUR ---
1515-DR HUTCHINS AT BEDSIDE-STATUS REPORT GIVEN
--- NOTE | 2016-12-06 19:00 | NUR ---
1900: Pt resting HOB 20 degrees with eyes closed at this time. Pt remains intuabted and on vent with diprivan for sedation. Pt current RR15x with SPO2 98%. Pt SR 80-90 bpm on CM with SBP 120's. Left AKA site with dressing intact. No bleeding seen. Right dorsalis pedis pulse now palpable = weak in quality. ABD unchanged from previous assessment. Right DAMION marked #1 remains with large bulky dressing saturated with yellow liquid. OGT position reconfirmed with 30 cc air bolus and auscultation returned to LIS with green liquid return. De La Fuente to gravity with >30 cc hr dark yellow UOP. Oral care done per RT at this time. All monitors on and alarms intact. SR up x2.
[2016-12-06 19:03] LABS: BASOPHILS 0.1 % (0.0-2.0); EOSINOPHILS 0.5 % (0-7); HEMATOCRIT 25.9 % (42.0-54.0); HEMOGLOBIN 8.3 g/dL (13.5-17.5); IMMATURE GRANULOCYTES 0.5 % (0-5); LYMPHOCYTES 8.1 % (15-50); MCH 29.6 pg (26.0-34.0); MCV 92.5 fL (80.0-100.0); MEAN PLATELET VOLUME 9.8 fL (7.4-10.4); MONOCYTES 9.6 % (2-11); NEUTROPHILS 81.2 % (40-80); PLATELET COUNT 368 10x3/uL (130-400); RDW 15.1 % (11.5-14.5); WBC 10.9 10x3/uL (4.8-10.8)
[2016-12-07] VITALS (27 sets, daily range): BP systolic 120–150; BP diastolic 65–92
--- NOTE | 2016-12-07 | NUR ---
0000: Pt increased RR and opens eyes with in-line sx. Returns to closed and RR decreased back to 15-18x after sx completed.
[2016-12-07 01:21] LABS: APTT 27.9 SECONDS (22.8-39.4); INR 1.12 (0.85-1.17); PROTIME 14.3 SECONDS (11.6-15.0)
[2016-12-07 01:25] LABS: BASOPHILS 0 % (0.0-2.0); EOSINOPHILS 0.9 % (0-7); HEMATOCRIT 26.2 % (42.0-54.0); HEMOGLOBIN 8.5 g/dL (13.5-17.5); IMMATURE GRANULOCYTES 0.7 % (0-5); LYMPHOCYTES 6.9 % (15-50); MCH 29.7 pg (26.0-34.0); MCHC 32.4 g/dL (31.0-37.0); MCV 91.6 fL (80.0-100.0); MONOCYTES 10.1 % (2-11); NEUTROPHILS 81.4 % (40-80); PLATELET COUNT 361 10x3/uL (130-400); RBC 2.86 10x6/uL (4.20-6.10); RDW 15.1 % (11.5-14.5)
--- NOTE | 2016-12-07 03:00 | NUR ---
0300: Partial linen change done, De La Fuente care, SCDs off, and Oral care done. Pt opens eyes to stimulation, but does not follow commands. Pt grimmaces with movement and resp rate increased with above to 20-26x. Diprivan remains at 55 mcgs. Pt remains SR 80-90 bpm. No change in Vent settings. Pt repositioned for comfort with extrem off bed with pillow supports. Pt left amputation/dressing C/D/I and stump off bed with pillow support. No change in ABD sites.
[2016-12-07 05:16] LABS: BASOPHILS 0.1 % (0.0-2.0); EOSINOPHILS 0.6 % (0-7); HEMOGLOBIN 8.7 g/dL (13.5-17.5); IMMATURE GRANULOCYTES 0.6 % (0-5); LYMPHOCYTES 5.5 % (15-50); MCH 29.7 pg (26.0-34.0); MCHC 32.2 g/dL (31.0-37.0); MCV 92.2 fL (80.0-100.0); MEAN PLATELET VOLUME 10.2 fL (7.4-10.4); MONOCYTES 11.5 % (2-11); NEUTROPHILS 81.7 % (40-80); PLATELET COUNT 391 10x3/uL (130-400); RBC 2.93 10x6/uL (4.20-6.10); RDW 15.1 % (11.5-14.5); WBC 10.9 10x3/uL (4.8-10.8)
[2016-12-07 05:28] LABS: ALBUMIN 1.3 g/dL (3.4-5.0); BILIRUBIN - DIRECT 2.42 mg/dL (0.00-0.30); BILIRUBIN - INDIRECT 0.31 mg/dL (0.00-1.00); BILIRUBIN - TOTAL 2.73 mg/dL (0.2-1.3); CALCIUM 7.8 mg/dL (8.5-10.1); CARBON DIOXIDE 26.1 mmol/L (21.0-32.0); CREATININE - SERUM 1.4 mg/dL (0.6-1.3); MAGNESIUM - SERUM 2.4 mg/dL (1.8-2.4); PHOSPHOROUS 2.8 mg/dL (2.5-4.9); POTASSIUM - SERUM 4.1 mmol/L (3.5-5.1); PROTEIN - SERUM 5.6 g/dL (6.4-8.2)
--- NOTE | 2016-12-07 05:30 | NUR ---
0530: Pt repositioned for comfort. Stump remains off bed/elevated with pillow support. Pt remains on vent with RR 15x. Pt RR increased with movement, sx, or other stimulation. Pt remains SR 80-90 bpm. No change in IVF/UOP.
--- NOTE | 2016-12-07 17:56 | NUR ---
1640-NOTED TEMP-102.5-DR HUTCHINS NOTIFIED--ORDER RECIEVD 1700-LAB AT BEDSIDE-R ARM BLOOD DRAW FOR PERIPHERAL-AND DISTAL/BROWN PORT DRAWN-
--- NOTE | 2016-12-07 20:00 | NUR ---
2000: ABD appearence with multiple dressings, drains, and incisions. Midline ABD with approx 6-8" wound vac dressing intact with no leaks detected to 125 mmHG sx with scant output. Output cannister has quick absorbent in it so difficult to assess drainage color. Left upper quadrant of ABD with incision covered with telfa and 4x4's. No bleeding seen at site. LLQ of ABD with Colostomy with pink & moist stoma. Small amount pink clear liquid drainage in collection bag. Distal to Colostomy is DAMION to bulb sx with yellow/clear sx drainage. DAMION is marked #2. Right middle ABD with DAMION drain marked #1 to bulb suction with small amount of pink/clear sx drainage noted. Area around #1 DAMION insertion site with small amount of dried yellow liquid on drain sponge. OGT position confirmed with 30 cc air bolus and auscultation. Returned to LIS with green liquid output.
[2016-12-08] VITALS (23 sets, daily range): BP systolic 121–150; BP diastolic 62–77
--- NOTE | 2016-12-08 | NUR ---
0000: De La Fuente care, SCDs off, Oral care, and TPN line changed done at this time. Pt repositioned for comfort.
--- NOTE | 2016-12-08 03:00 | NUR ---
0300: Hibiclens bath and linen change done at this time. Pt RR increased and MS04 IVP admin. Pt repositioned for comfort HOB 30 degrees with extrem including stump off bed with pillow supports. Oral care done and ETT placed on towell roll support. Pt temp 101.0 f Oral. Blankets removed and room temp adjusted, cool cloth applied to forehead.
[2016-12-08 03:40] LABS: BASOPHILS 0.1 % (0.0-2.0); EOSINOPHILS 1.3 % (0-7); HEMATOCRIT 24.4 % (42.0-54.0); HEMOGLOBIN 7.9 g/dL (13.5-17.5); IMMATURE GRANULOCYTES 1.1 % (0-5); LYMPHOCYTES 7.2 % (15-50); MCH 29.9 pg (26.0-34.0); MCHC 32.4 g/dL (31.0-37.0); MCV 92.4 fL (80.0-100.0); MEAN PLATELET VOLUME 10.1 fL (7.4-10.4); MONOCYTES 7.7 % (2-11); NEUTROPHILS 82.6 % (40-80); PLATELET COUNT 367 10x3/uL (130-400); RBC 2.64 10x6/uL (4.20-6.10); RDW 15.2 % (11.5-14.5); WBC 12.3 10x3/uL (4.8-10.8)
--- NOTE | 2016-12-08 03:40 | NUR ---
0340: Pt yelling out from room and asking staff; "Can you take me home in the morning?" Verbal reorientation provided and successful at this time. Pt does not c/o pain, but asked to be repositioned. Pt repositioned for comfort HOB 30 degrees. Pt remains Paced 60 bpm and room air with SPo2 96%.
[2016-12-08 03:56] LABS: ALBUMIN 1.2 g/dL (3.4-5.0); ANION GAP 11.3 mmol/L (8-16); BILIRUBIN - DIRECT 2.01 mg/dL (0.00-0.30); BILIRUBIN - INDIRECT 0.39 mg/dL (0.00-1.00); BILIRUBIN - TOTAL 2.4 mg/dL (0.2-1.3); CALCIUM 7.8 mg/dL (8.5-10.1); CARBON DIOXIDE 25.6 mmol/L (21.0-32.0); CREATININE - SERUM 1.3 mg/dL (0.6-1.3); MAGNESIUM - SERUM 2.2 mg/dL (1.8-2.4); PHOSPHOROUS 4.1 mg/dL (2.5-4.9); POTASSIUM - SERUM 3.9 mmol/L (3.5-5.1); PROTEIN - SERUM 5.7 g/dL (6.4-8.2)
--- NOTE | 2016-12-08 19:45 | NUR ---
REPORT RECEIVED AND CARE ASSUMED. INITIAL SHIFT ASSESSMENT COMPLETED. PT SEDATED ON PROPOFOL TO TITRATE FOR EFFECTIVNESS. SEE IF FLOWSHEET FOR RATES, CHANGES AND FLIUDS. PT NOTED TO HAVE RESPIRATORY STATUS SUPPORTED VIA VENT. TOLERATING WELL. SUCTIONING, ORAL CARE, HOB ELEVATED AND TURNING PER VENT PROTOCOL. PT IS TOTAL CARE AT THIS TIME AND IS TURNED AND REPOSTIONED Q2H WITH PILLOWS USED TO ELEVATE ARMS. BRIDGE RIGHT HEEL AND ELEVATE LEFT AKA STUMP. NOTE DRESSING TO LEFT STUMP IS THE SURGICAL DRESSING AND TO BE CHANGED PER PHYSICIAN. NO DRAINAGE VISIBLE ON DRESSING. PT RECEIVING IVF VIA CVL LEFT SUBCLAVIAN DRESSING CDI DATED. 12/05/16. ABDOMEN WITH MULTIPLE INCISIONS AND DRESSING. MIDLINE ABD INCISION WITH WOUND VAC DRESSING RECEIVING CONTINUOUS THERAPY AT 125MMHG. DIFFICULT TO SEE COLOR OF DRAINAGE DUE TO ABSORBANT MATERILA IN CANNISTER. VERY SCANT HERRERA DRAINAGE IN TUBING. RIGHT MID ABD DAMION DRAIN WITH COMPRESSED BULB HAS SMALL AMOUNT OF THIN LIGHT HERRERA DRAINAGE. LEFT LOWER ABD DAMION#2 WITH SMALL AMOUNT OF SEROUS DRAINAGE. BOTH WITH DRESSINGS CDI THAT WERE CHANGED TODAY. WOUND VAC DRESSING SCHEDULED TO BE CHANGED TOMORROW PER REPORT. LEFT MID ABDOMEN WITH COLOSTOMY WITH CLEAR COLOSTOMY DRAINAGE BAG NO DRAINAGE NOTED IN BAG. COLOSTOMY SITE IS MOIST BEEFY RED IN COLOR. PT IS BEING MONITORED PER STANDARD ICU PROTOCOL WITH ALL ALARMS SET AND VERIFIED. TUBING NOTED TO BE LABELED AND DATED APPROPRIATE AND IS CURRENT. PT FEBRILE, COOL COMPRESS TO FOREHEAD AND WILL MONITOR CLOSELY
--- NOTE | 2016-12-08 21:00 | NUR ---
FAMILY HERE AT BEDSIDE. UPDATE GIVEN AND QUESTIONS ANSWERED. AYAH HUNG AT O FOR ABT.
--- NOTE | 2016-12-08 23:00 | NUR ---
SHIFT REASSESSMENT COMPLETED WITH NO SIGNIFICANT CHANGES. PT IS RESTING WELL.
[2016-12-09] VITALS (23 sets, daily range): BP systolic 112–176; BP diastolic 61–100
--- NOTE | 2016-12-09 01:00 | NUR ---
PT RESTING. CONTINUES TO BE TOTAL CARE. IS BREATHING OVER THE VENT BUT DOES NOT SEEM TO BE IN ANY DISTRESS AT THIS TIME
--- NOTE | 2016-12-09 02:40 | NUR ---
PT GIVEN MORPHINE DOCUMENTED ON JAN PREPARTORY TO BATHING AND CHANGING LINENS
--- NOTE | 2016-12-09 03:00 | NUR ---
SHIFT REASSESSMENT COMPLETED WITH NO SIGNIFICANT CHANGES. PT GIVEN COMPLETE BED BATH WITH ALL LINENS CHANGED. DRESSING TO RIGHT AND LEFT ABD DAMION DRAINS CHANGED AND DATED. SCANT YELLOW DRIED DRAINAGE NOTED ON DRESSINGS WHEN REMOVED CLEANED WITH NORMAL SALINE BEFORE REDRESSING. SKIN AROUND THE RIGHT DAMION SLIGHLY RED. DRESSING TO UPPER LEFT. ABD REMOVED AND RHINA CLEANED WITH NORMAL SALINE. NOTE 12 RHINA INTACT. EDGES APPROXIMATED AT INCISION SITE. NO DRAINAGE NOTED. BORDERED GAUZE DRESSING REAPPLIED. NOTE BRUISE TO RIGHT BUTTOCKS. THIS HAD BEEN REPORTED DURING SHIFT REPORT BUT ONLY VISIBLE WHEN PT TURNED COMPLETELY OVER WHILE CHANGING LINENS. THIS IS THEREFORE NOT A NEW FINDING.
--- NOTE | 2016-12-09 04:00 | NUR ---
RADIOLOGY AT BEDSIDE FOR AM CXR.
[2016-12-09 05:03] LABS: BASOPHILS 0.2 % (0.0-2.0); EOSINOPHILS 1.6 % (0-7); HEMOGLOBIN 9.1 g/dL (13.5-17.5); IMMATURE GRANULOCYTES 1.2 % (0-5); LYMPHOCYTES 6.9 % (15-50); MCHC 32.5 g/dL (31.0-37.0); MEAN PLATELET VOLUME 10.7 fL (7.4-10.4); MONOCYTES 6.5 % (2-11); NEUTROPHILS 83.6 % (40-80); PLATELET COUNT 295 10x3/uL (130-400); RBC 3.14 10x6/uL (4.20-6.10); RDW 16.4 % (11.5-14.5); WBC 12.7 10x3/uL (4.8-10.8)
[2016-12-09 05:24] LABS: MCV 89.2 fL (80.0-100.0)
[2016-12-09 05:28] LABS: ANION GAP 13.2 mmol/L (8-16); CARBON DIOXIDE 26.5 mmol/L (21.0-32.0); CREATININE - SERUM 1.4 mg/dL (0.6-1.3); MAGNESIUM - SERUM 2.2 mg/dL (1.8-2.4); PHOSPHOROUS 4.9 mg/dL (2.5-4.9); POTASSIUM - SERUM 3.7 mmol/L (3.5-5.1)
--- NOTE | 2016-12-09 07:00 | NUR ---
REC'D REPORT FROM ELIUD, TYRON RESUMED CARE, ETT TO VENTILATION AND SECURED, IN AC MODE WITH 30% FIOS, OGT TO LIWS WITH GREEN SECRETIONS TO CANISTER, LEFT SC CVL WITH TPN AT 75 CC/HR, PROPOFAL AT 50 MCG.KG/HR, AND DS AT 10 CC/HR, RIGHT MIDLINE DAMION WITH WSCANT DRAINAGE, LEFT LOWER DAMION WITH SCANT DRAINAGE TO COMPRESSED BULB, MIDLINE WOUND VAC TO SUCTION, AT 125 MH/HG, LST MIDLINE COLOSTOMY WITH SCANT DRAINAGE, DRESSING TO LT LATERAL SIDE, CDI, LEFT AKS, BOSWELL TO GRAVITY WITH KENYON DRAINAGE TO BAG, RIGHT LEG WITH SCD, LEFT AKA NOTED, ELEVATED TO PILLOW, B/L SOFT RESTRAINTS IN USE, ISOLATION IN USE, ASSESSMENT COMPLETE PER FLOWSHEET, VSS, REPOSITIONED UP AND TO LEFT SIDE WITH PILLOW PLACE TO BACK, WILL CONTINUE WITH POC
--- NOTE | 2016-12-09 08:30 | NUR ---
AM MEDS GIVEN WITHOUT DIFFICULTY
--- NOTE | 2016-12-09 09:24 | NUR ---
NUTRITION MONITORING & EVAL CHART REVIEWED, PT REMAINS ON VENT. TPN AND LIPIDS PER DR. CORREA. WILL CONTINUE TO MONITOR PT PROGRESS. RD FOLLOWING
--- NOTE | 2016-12-09 09:30 | NUR ---
SEDATION OFF PER DR. ESCOBAR, ALSO CHANGED SETTING, NOW IN SIMV MODE
--- NOTE | 2016-12-09 10:51 | NUR ---
VENT SETTING CHANGED TO SIMV WITH A RATE OF 4 AND PRESSURE SUPPORT OF 15, SEDATION OFF AT THIS TIME
--- NOTE | 2016-12-09 11:00 | NUR ---
NO ACUTE CHANGE FROM PREVIOUS ASSESSMENT, CONTINUES ON CPAP, SBP 165, HR 93, O2 SAT 95% ON 30% FIO2
--- NOTE | 2016-12-09 12:00 | NUR ---
AT BEDSIDE, STATUS UPDATED, VOICES NO NEEDS AT THIS TIME, PATIENT WITH EYES OPEN, TRACKS AROUND ROOM, FOLLOWS COMMANDS, VSS, NO SIGNS OF DISTRESS, CONTINUES ON CPAP
--- NOTE | 2016-12-09 14:30 | NUR ---
MORPHINE 2 MG IVP AND TYELNOL 1000 MG GIVEN PER MAR ORDERS B/4 APPLYING AIR OVERLAY MATTRESS TO BED WITH ASSIST FROM PERSONNEL X3, TOLERATED WITHOUT DIFFICULTY, ORAL CARE, BATH, AND LINEN CHANGE COMPLETED
--- NOTE | 2016-12-09 15:00 | NUR ---
ASSESSMENT COMPLETE, CONTINUES ON CPAP, HR 105, SBP 176, REP 28, TURN BACK TO SIMV MODE WITH A RATE OF 12,, TEMP 101.3, ICE PACKS APPLIED TO AXILLARY AREA, ROOM TEMP TURNED DOWN, AND COVERS OFF, NO OTHER ACUTE CHANGES FROM PREVIOUS
--- NOTE | 2016-12-09 20:00 | NUR ---
REPORT RECEIVED AND CARE ASSUMED. INITIAL SHIFT ASSESSMENT PER FLOWSHEET. IVF INFUSING IV FLOWSHEET VIA A LEFT SC CVL DRESSING INTACT. ALL LINES ARE DATED AND ARE CURRENT. PT IS WITH EYES OPEN AND RESPONDING IN A LIMITED FASHION. DOES SQUEEZE HAND WHEN ASKED TO BOTH RIGHT AND LEFT BUT ONLY STARES WHEN ASKED IF IN ANY PAIN. PT CONTINUES TO BE SUPPORTED VIA VENT WITH SETTINGS PER FLOWSHEET. OGT PLACEMENT VERIFED VIA AIR BOLUS. GREEN/BROWN BILE DRAINAGE NOTED IN TUBING. RIGHT DAMION WITH PURULENT BYNUM/BROWN FOUL SMELLING DRAINAGE. FLUSHED PER ORDER WITH 20CC STERILE SALINE. IMMEDIATE RETURN OF SOME OF THE FLUSH. DRESSING WITH SMALL AMOUNT OF DRAINAGE INDICATING DAMION LEAKING AROUND INCISION SITE. MID LINE ABD INCISON WITH WOUND VAC AND DRESSING INTACT NO LEAKAGE. WAS EVALUATED PER WOUND CARE NURSE TODAY AND TO BE CHANGED BY THAT NURSE WHEN INDICATED. NO SIGNIFICANT DRAINAGE AND NONE IN TUBING. AT 125MMHG CONTINUEOUS THERAPY LEFT DAMION WITH SCANT AMOUNT OF SEROUS DRAINAGE. BOTH RIGHT AND LEFT DAMION BULBS COMPRESSED. LEFT OSTOMY REMAIN BEEFY RED AND WITH NO MEASURABLE OUTPUT. SCANT PINK THIN DRAINAGE IN TIP OF COLOSTOMY BAG. DRESSING ABOVE OSTOMY ON LEFT CDI AND DATED 12/09/16. DRESSING ALSO CDI TO LEFT DAMION. F/C PATENT DRAINAGE VIA GRAVITY AND WITH STATLOCK IN PLACE. URINE CONCENTRATED. LEFT AKA WITH SURGICAL COMPRESSION DRESSING IN PLACE AND TO BE CHANGED BY SURGEON PER REPORT. STUMP IS ELEVATED ON PILLOW. RIGHT LEG WITH SCD. HEEL FLOATED ON PILLOW FOOT WARM. PT WITH ICE PACKS TO BODY. REMOVED AT THIS TIME. PT IT TOTAL CARE AND REQUIRED TO BE TURNED Q2H WITH ROM TO EXTREMETIES. ARMS ELEVATED ON PILLOWS AND PILLOWS USED FOR SUPPORT AND TO RELIEVE PRESSURE. PT IS NOW ON A 1ST STEP AIR OVERLAY MATTRESS. PT CONTINUES TO BE IN DROPLET ISOLATION. CONTINUE TO MONITOR PER STANDARD ICU PROTOCOL WITH ALL ALARMS SET AND VERIFIED. IVF INFUSED VIA PUMP AND PER MANIFOLD.
--- NOTE | 2016-12-09 21:00 | NUR ---
NO VISITORS AT THIS TIME
--- NOTE | 2016-12-09 21:10 | NUR ---
PATCH MACHINE OPERATOR SET UP WITH TY RN WITNESS. SETTINGS PER PATCH MACHINE OPERATOR FLOWSHEET. PT IS AWAKE EYES OPEN FOLLOWS DIRECTIONS INTERMITTENTLY. DOES NOT RESPOND WHEN ASKED IF HURTING. PAIN JUDGED BASED ON JOSUE SCALE.
--- NOTE | 2016-12-09 22:30 | NUR ---
UPDATE GIVEN TO DAUGHTER REGARDING NEW MEDICATIONS AND STATUS OF PT.
--- NOTE | 2016-12-09 23:00 | NUR ---
TEMPERATURE IS TRENDING DOWN. BLANKET ADDED TO PT WHO HAS NOT HAD COVERING UP UNTIL THIS TIME DUE TO ELEVATED TEMP. WILL CONTINUE TO MONITOR. PT IS TOLERATING THE MORPHINE WELL. SLEEPING BUT IS EASILY AWAKEN. CONT TO FOLLOW DIRECTIONS ONLY INTERMITTENTLY. DRAINAGE FROM DAMION BULBS EMPTIED AND ONLY SMALL AMOUNTS. RIGHT DAMION WITH THINNER BYNUM DRAINAGE AT THIS TIME
[2016-12-10] VITALS (24 sets, daily range): BP systolic 104–163; BP diastolic 52–92
--- NOTE | 2016-12-10 03:30 | NUR ---
SHIFT ASSESSMENT COMPLETED SEE FLOWSHEET. COMPLETE BED BATH GIVEN WITH DRESSINGS TO DAMION DRAINS CHANGED AND TO LEFT UPPER ABD INCISION. RIGHT DAMION SKIN AT INSERTION SITE SOMEWHAT RED AND IRRITATED DRESSING WITH MOD AMOUNT OF YELLOW DRAINAGE ON DRAIN SPONGE. LEFT DAMION SITE WNL SCANT DRIED YELLOW DRAINAGE ON DRAIN SPONGE. NO DRAINAGE TO INCISION SITE. ALL AREAS CLEANED WITH NORMAL SALINE AND THEN DRESSED APPROPRIATE. INCISION SITE WITH BORDERED GAUZE AND DAMION SITES WITH DRAIN SPONGES. RIGHT DAMION IRRIGATED PER DR. MARLEY'S ORDER WITH 20 CC NORMAL SALINE. THE BRUISE TO RIGHT BUTTOCK DOES PERSIST. PT IS NOW ON AIR OVERLAY MATTRESS. PT WAS ADMINISTERED 2 MG OF MORPHINE BOLUS DOSE PER SAFETY PROFESSIONAL PRIOR TO BATH. PT ALSO RECEIVED PCXR PER DR ORDER.
[2016-12-10 05:05] LABS: BASOPHILS 0.3 % (0.0-2.0); EOSINOPHILS 3.4 % (0-7); HEMATOCRIT 28.7 % (42.0-54.0); HEMOGLOBIN 9.2 g/dL (13.5-17.5); IMMATURE GRANULOCYTES 1.2 % (0-5); LYMPHOCYTES 6.4 % (15-50); MCH 29.1 pg (26.0-34.0); MCHC 32.1 g/dL (31.0-37.0); MCV 90.8 fL (80.0-100.0); MEAN PLATELET VOLUME 10.6 fL (7.4-10.4); MONOCYTES 6.3 % (2-11); NEUTROPHILS 82.4 % (40-80); PLATELET COUNT 349 10x3/uL (130-400); RBC 3.16 10x6/uL (4.20-6.10); RDW 16.3 % (11.5-14.5); WBC 10.9 10x3/uL (4.8-10.8)
[2016-12-10 05:20] LABS: ANION GAP 12.1 mmol/L (8-16); CALCIUM 8.3 mg/dL (8.5-10.1); CREATININE - SERUM 1.4 mg/dL (0.6-1.3); POTASSIUM - SERUM 4.1 mmol/L (3.5-5.1)
--- NOTE | 2016-12-10 06:00 | NUR ---
NO VISITORS AT THIS TIME. COVERS REMOVED DUE TO INCREASE IN TEMP. CONT TO MONITOR
--- NOTE | 2016-12-10 07:00 | NUR ---
REC'D REPORT AND RESUMED CARE, CONTINUES ON VENTILATION WITH ETT SECURED, SIMV MODE IN USE WITH 30 %% FIO2, ASSESSMENT COMPLETE PER FLOWSHEET, VSS, REPOSITIONE TO LEFT SIDE WITH PILLOW PROPPED TO BACK AND HEELS FLOATED, @ 705 CHANGE TO CPAP MODE, SEDATION DOWN TO 10 MCG,
--- NOTE | 2016-12-10 08:15 | NUR ---
AM MEDS GIVEN WITHOUT DIFFICULTY
--- NOTE | 2016-12-10 08:30 | NUR ---
DR MARLEY AT BEDSIDE, WOUND VAC DRESSING DC'D REPLACED WITH W/D BORDERED GAUZE DRESSING, LEFT LATERAL INCISION RHINA REMOVED, CULTURE OBTAINED, WET TO DRY DRESSING APPLIED, DRAIN SPONGE DRESSING APPLIED TO RIGHT LATERAL SIDE, PROPAFAL SEDATION AND MORPHINE LUMBER MARKER IN USE
--- NOTE | 2016-12-10 09:00 | NUR ---
FAMILY AT BEDSIDE, STATUS UPDATED BY DR MARLEY, VOICED NO OTHER NEEDS AT THIS TIME
--- NOTE | 2016-12-10 11:33 | NUR ---
WOUND CULTURE OF LATERAL ABDOMEN INCISION TAKEN TO LAB
--- NOTE | 2016-12-10 12:30 | NUR ---
TEMP 101.3, MOTRIN 400 MG OGT GIVEN, BLOOD CULTURES X4 ORDERED, LEFT LATERAL INCISION DRESSING SATURATED WITH GREEN DRAINAGE, DRESSING CHANGE W/D COMPLETED
--- NOTE | 2016-12-10 14:05 | NUR ---
WOUND CARE: PER DR. MARLEY'S ORDERS APPLIED PREVENA INCISION MGMT SYSTEM TO MIDLINE INCISION (ABD) AND APPLIED A WOUND VAC DRESSING TO OPEN INCISION ON LUQ. MIDLINE ABD INCISION IS INTACT WITH RHINA, NO REDNESS, EDEMA OR ODOR. LUQ INCISION IS DRAINING BROWN/YELLOW WITH ODOR. 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 SETTINGS -125MMHG, MOD/CONTINUOUS. PREVENA DRESSING APPLIED DIRECTLY OVER ABD. INCISION WITHOUT DIFFICULTY. OSTOMY BAG AND WAFER WERE CHANGED AFTER PREVENA AND WOUND VAC DRESSINGS WERE SEALED. PT TOLERATED WELL. WILL CONTINUE TO MONITOR.
--- NOTE | 2016-12-10 18:00 | NUR ---
AT BEDSIDE, STATUS UPDATED, WOULD LIKE FAMILY TO COME TO BE AT BEDSIDE WHEN PATIENT IS ON CPAP ON 12/11,
--- NOTE | 2016-12-10 18:45 | NUR ---
SANDOSTATIN DRIP, MERREM, AND MORPHINE WORDPRESS DEVELOPER, INFUSION BAGS CHANGED
--- NOTE | 2016-12-10 19:00 | NUR ---
REPORT RECIEVED, INITIAL ASSESSMENT COMPLETE, PLEASE SEE FLOW SHEETS FOR DETAILS. ORAL CARE AND TURNING PROVIDED. PT DENIES PAIN, BUT UPON INSPECTION AND PALPATION OF ABDOMEN, PT GRIMMACED AND NODDED THAT IT WAS PAINFUL. WOUND VAC IN PLACE FOR MIDLINE INCISION AND LUQ ABDOMEN, RUNNING WITH NO LEAKS. RHONCHI AUSCULTATED IN RUL, CRACKLES IN RML, HILLARY, DIMINISHED SOUNDS IN RLL AND LLL. PERIPHERAL EDEMA NOTED IN ALL EXTREMETIES. PERIPHERAL PULSES PALPABLE, LEFT FEMORAL PULSE PALPABLE. A-FEBRILE ATT. VSS, WILL CONTINUE TO MONITOR.
--- NOTE | 2016-12-10 21:00 | NUR ---
ORAL CARE AND TURNING PROVIDED. PT DENIES PAIN/NEEDS ATT. NO S&S OF ACUTE DISTRESS NOTED, BED LOW AND LOCKED, WILL CONTINUE TO MONITOR.
--- NOTE | 2016-12-10 21:00 | NUR ---
PROVIDED BOSWELL CARE USING BARDS BOSWELL CARE KIT WIPES.
--- NOTE | 2016-12-10 23:00 | NUR ---
REASSESSMENT COMPLETE, PLEASE SEE FLOW SHEETS FOR DETAILS. NO CHAGES NOTED. NO S&S OF ACUTE DISTRESS NOTED. PT DECLINES PAIN MED BOLUS (MORPHINE) AFTER GRIMMACE FROM TURNING. ORAL CARE PROVIDED. VSS ATT, WILL CONTINUE TO MONITOR.
--- NOTE | 2016-12-10 23:39 | NUR ---
PT WITH WORRIED EXPRESSION ON FACE AND RR ELEVATED. INCREASED DIPROVAN TO 35 MCG/KG/MIN AND GAVE 5MG BOLUS TO ENDUCE SEDATION. PT REFUSED PAIN MEDS. VSS ATT, WILL CONTINUE TO MONITOR.
[2016-12-11] VITALS (24 sets, daily range): BP systolic 91–166; BP diastolic 46–92
--- NOTE | 2016-12-11 01:00 | NUR ---
ORAL CARE AND TURNING PROVIDED. MORPHINE BOLUS GIVEN PRIOR TO TURNING. PT WAS SLEEPING, WOKE UP FOR TURNING AND ORAL CARE. DENIES PAIN/NEEDS ATT. VSS, WILL CONTINUE TO MONITOR.
--- NOTE | 2016-12-11 01:32 | NUR ---
TPN COMPLETED CURRENT INFUSION. NEW TPN BAG HUNG WITH NEW TUBING.
--- NOTE | 2016-12-11 03:00 | NUR ---
REASSESSMENT COMPLETE, PLEASE SEE FLOW SHEETS FOR DETAILS. ORAL CARE AND TURNING PROVIDED. PT WOKE FOR TURNING AND ORAL CARE. DENIES PAIN/NEEDS. BED LOW AND LOCKED. VSS, WILL CONTINUE TO MONITOR.
[2016-12-11 04:54] LABS: BASOPHILS 0.3 % (0.0-2.0); EOSINOPHILS 3.2 % (0-7); HEMOGLOBIN 8.3 g/dL (13.5-17.5); IMMATURE GRANULOCYTES 0.6 % (0-5); LYMPHOCYTES 6.9 % (15-50); MCH 29.2 pg (26.0-34.0); MCHC 31.9 g/dL (31.0-37.0); MCV 91.5 fL (80.0-100.0); MEAN PLATELET VOLUME 10.5 fL (7.4-10.4); MONOCYTES 7.3 % (2-11); NEUTROPHILS 81.7 % (40-80); PLATELET COUNT 397 10x3/uL (130-400); RBC 2.84 10x6/uL (4.20-6.10); RDW 15.9 % (11.5-14.5); WBC 10.4 10x3/uL (4.8-10.8)
--- NOTE | 2016-12-11 05:00 | NUR ---
ORAL CARE AND TURNING PROVIDED. SUCTION ADJUSTED, RECIEVING OUTPUT NOW. STERIL CVL DRESSING CHANGE PERFORMED. DATED AND SIGNED. DENIES PAIN/NEEDS ATT. BOLUS MORPHINE GIVE BEFORE TURNING. PT VISIBLY GRIMMACED DURING TURNING. VSS ATT, WILL CONTINUE TO MONITOR.
[2016-12-11 05:31] LABS: ANION GAP 11.2 mmol/L (8-16); CALCIUM 8.2 mg/dL (8.5-10.1); CARBON DIOXIDE 25.3 mmol/L (21.0-32.0); CREATININE - SERUM 1.3 mg/dL (0.6-1.3); POTASSIUM - SERUM 4.5 mmol/L (3.5-5.1)
--- NOTE | 2016-12-11 07:15 | NUR ---
ASSESSMENT COMPLETED PER FLOWSHEET, ETT TO VENTILATION AND SECURED, SAT 98% ON 30% FIO2, VSS, SEDATION IN USE, FOLLOWS COMMANDS, DENIES PAIN, REPOSITIONED UP AND TO BACK WITH HEEL AND STUMP FLOATED
--- NOTE | 2016-12-11 09:00 | NUR ---
NUTRITION MONITORING & EVAL CHART REVIEWED. PT REMAINS ON VENT. TPN @ 75 CC/HR WITH 20% INTRALIPIDS. WILL MONITOR PT PROGRESS. RD FOLLOWING
--- NOTE | 2016-12-11 09:00 | NUR ---
DAUGHTER SIMON AT BEDSIDE, STATUS UPDATED, VOICES NO NEEDS AT THIS TIME
--- NOTE | 2016-12-11 09:30 | NUR ---
AM MEDS GIVEN WITHOUT DIFFICULTY
--- NOTE | 2016-12-11 10:30 | NUR ---
EXTUBATED WITHOUT DIFFICULTY, NC AT 4L INITIATED, SAT 96%, NO LABORED BREATHING, SUCTION YANKER IN USE, ENCOURAGED COUGHING AND DEEP BREATHING
--- NOTE | 2016-12-11 11:00 | NUR ---
NO ACUTE CHANGE FROM PREVIOUS ASSESSMENT, VSS, DENIES PAIN, MORPHINE DUMP WORKER IN USE, CALL LIGHT IN REACH
--- NOTE | 2016-12-11 12:00 | NUR ---
FAMILY AT BEDSIDE, STATUS UPDATED VOICES NO NEEDS AT THIS TIME
--- NOTE | 2016-12-11 13:36 | NUR ---
PULLED OUT NGT, REPLACED WITHOUT, B/L RESTRAIMTS APPLIED
--- NOTE | 2016-12-11 14:12 | NUR ---
WOUND CARE: VAC DRESSING CHANGE D/T DRAINAGE BREAKING THE SEAL. WOUND CONTINUES TO DRAIN BROWN THICK EXUDATE. NO CHANGE IN MEASUREMENTS FROM 12/10/16. CLEANSED WOUND AND SURROUNDING SKIN AND PATTED DRY. APPLIED SKIN PROTECTION BARRIER AND PLACED NEW FOAM IN WOUND AND ANOTHER PIECE FOR TRAC PAD (2 TOTAL PIECES OF BLACK FOAM). PT AWAKE AND TOLERATED WELL. WOUND CARE WILL CONTINUE TO MONITOR.
--- NOTE | 2016-12-11 15:00 | NUR ---
FAMILY AT BEDSIDE, STATUS UPDATED, VOICES NO NEEDS AT THIS TIME, ASSESSMENT COMPLETED PER FLOWSHEET, NO SIGNS OF DISTRESS, NO NEEDS AT THIS TIME, DENIES PAIN
--- NOTE | 2016-12-11 18:30 | NUR ---
DR MARLEY AT BEDSIDE, COUNSELED WITH PATIENT RE: POC
--- NOTE | 2016-12-11 19:00 | NUR ---
REPORT RECIEVED, INITIAL ASSESSMENT COMPLETE, PLEASE SEE FLOW SHEETS FOR DETAILS. PT ALERT AND ORIENTED X4. DENIES PAIN, BUT UPON MOVEMENT OBSERVED GRIMACING, ASKED AGAIN ABOUT PAIN AND IT WAS DENIED. INFORMED PT HE HAS A PAIN MED READILY AVAILABLE IF HE NEEDS IT. VISUALIZED ABDOMEN AND ALL DRAINS, ALL DRESSINGS CDI - LUQ WOUND VAC, LLQ DAMION DRAIN WITH SEROUS DRAINAGE, MIDLINE INCISION WITH WOUND VAC, LUQ OSTOMY SITE WNL WITH CLEAR DRAINAGE, RLQ DAMION DRAIN WITH SEROUS DRAINAGE. LLE AMPUTATED WITH DRESSING INTACT, TWO DOME SIZE SPOTS WITH OLD BLOOD ON IT. NO SIGNS OF FRESH BLOOD ON DRESSING. UPPER EXTREMETIES +3/4 STRENGTH WITH 2+ EDEMA. PULSES PALPABLE PERIPHERALLY WITH LEFT FEMORAL PULSE PALPATED. PT REFUSED TURNING. VSS ATT, WILL CONTINUE TO MONITOR.
--- NOTE | 2016-12-11 21:00 | NUR ---
OFFERED REPOSITIONING AGAIN, THIS WAS REFUSED, PT STATES HE IS COMFORTABLE AND WANTS TO BE LEFT ALONE. DENIES PAIN/NEEDS AT THIS TIME. SAYS HE WANTS TO GO HOME, EXPLAINED THAT HE WAS NOT READY TO GO HOME YET, THAT IT WOULD TAKE TIME, HE SAID "THERE IS NO TIME" AND INFORMED HIM THAT HIS LOVED ONES WERE THERE FOR HIM AND WE WOULD TAKE CARE OF HIM AND WHEN HE WAS READY WE WOULD LET HIM GO HOME. HE STATED HE UNDERSTOOD. BED LOW AND LOCKED, CALL LIGHT IN REACH. VSS, WILL CONTINUE TO MONITOR.
--- NOTE | 2016-12-11 23:00 | NUR ---
REASSESSMENT COMPLETE, PLEASE SEE FLOW SHEETS FOR DETAILS. PT ASKED TO BE TOLD ABOUT HIS SITUATION AND ALL THINGS GOING ON WITH HIM. HE WAS INFORMED. PT PROCEEDED TO ASK TO HAVE HIS RESTRAINTS REMOVED, EXPLAINED AGAIN HOW ALL TUBES WERE NECESSARY FOR RECOVERY, AND ASKED PT TO PROMISE TO NOT PULL OUT ANY TUBES AFTER THE RESTRAINTS WERE REMOVED. PT IS ALERT AND ORIENTED X4, AND ANSWERS QUESTIONS APPROPRIATEDLY. DECIDED TO REMOVE RESTRAINTS, THIS WAS DONE AT 2330. PT STRETCHING ARMS AND TOUCHING NOSE, INFORMED HIM THE TUBE IN IT WAS NECESSARY AND HIS OXYGEN WAS ALSO THERE AND NECESSARY. PT AGREED TO NOT PULL AT ANYTHING. INSTRUCTED TO DO RANGE OF MOTION EXERCISES FOR STRENGTHENING. THIS WAS DEMONSTRATED. VSS AT THIS TIME. BED LOW AND LOCKED, CALL LIGHT IN REACH AND SITTING AT DOOR WAY FOR OBSERVATION FOR A TIME. WILL CONTINUE TO MONITOR CLOSELY.
[2016-12-12] VITALS (24 sets, daily range): BP systolic 131–163; BP diastolic 70–91
--- NOTE | 2016-12-12 01:00 | NUR ---
PT RESTING. DENIES PAIN/NEEDS ATT, BED LOW AND LOCKED, CALL LIGHT IN REACH. NO S&S OF ACUTE DISTRESS NOTED. RR EVEN AND UNLABORED. VSS, WILL CONTINUE TO MONITOR.
--- NOTE | 2016-12-12 03:00 | NUR ---
CHECKED IN ON PT, SLEEPING, VSS, WILL CONTINUE TO MONITOR.
--- NOTE | 2016-12-12 03:22 | NUR ---
REASSESSMENT COMPLETE, PLEASE SEE FLOW SHEETS FOR DETAILS. PT A&O X4, DOING WELL WITHOUT HIS RESTRAINTS ON, HAS REFRAINED FROM PULLING OUT ANY TUBES OR LINES. 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 CALLING ME "BABY" AND "HONEY" AND "SWEETPEA", INFORMED PT MY NAME WAS DELFINO. PT ASKED WHEN WE WERE "FINDING A PLACE TO SHACK UP" INFORMED HIM THIS WOULD NOT BE HAPPENING. INFORMED PT I AM HIS NURSE, AND AM HERE TO CARE FOR HIM A PATIENT AND CARE FOR HIM ONLY ONE HUMAN BEING TO ANOTHER AND NOTHING MORE. INFORMED HIM I WAS HIS NURSE AND AM TRYING TO HELP HIM GET BETTER. HE ACKNOWLEDGED THIS AND STARTED TO STROKE MY ARM. I STEPPED AWAY AND INFORMED HIM THAT I WOULD BE BACK TO CHECK ON HIM SHORTLY. BED LOW AND LOCKED, CALL LIGHT IN REACH, VSS ATT, WILL CONTINUE TO MONITOR.
--- NOTE | 2016-12-12 05:00 | NUR ---
PT RESTING, NO S&S OF ACUTE DISTRESS NOTED. RR EVEN AND UNLABORED. VSS ATT, BED LOW AND LOCKED, CALL LIGHT IN REACH, WILL CONTINUE TO MONITOR.
[2016-12-12 05:45] LABS: BASOPHILS 0.2 % (0.0-2.0); EOSINOPHILS 2.2 % (0-7); HEMATOCRIT 29.9 % (42.0-54.0); HEMOGLOBIN 9.7 g/dL (13.5-17.5); IMMATURE GRANULOCYTES 0.6 % (0-5); LYMPHOCYTES 6.8 % (15-50); MCH 29.2 pg (26.0-34.0); MCHC 32.4 g/dL (31.0-37.0); MCV 90.1 fL (80.0-100.0); MEAN PLATELET VOLUME 10.5 fL (7.4-10.4); MONOCYTES 6.5 % (2-11); NEUTROPHILS 83.7 % (40-80); PLATELET COUNT 430 10x3/uL (130-400); RBC 3.32 10x6/uL (4.20-6.10); RDW 15.6 % (11.5-14.5); WBC 12.7 10x3/uL (4.8-10.8)
[2016-12-12 06:06] LABS: ALBUMIN 2.5 g/dL (3.4-5.0); ANION GAP 11.2 mmol/L (8-16); BILIRUBIN - TOTAL 1.6 mg/dL (0.2-1.3); CALCIUM 8.5 mg/dL (8.5-10.1); CARBON DIOXIDE 29.1 mmol/L (21.0-32.0); CREATININE - SERUM 1.3 mg/dL (0.6-1.3); MAGNESIUM - SERUM 2.3 mg/dL (1.8-2.4); POTASSIUM - SERUM 4.3 mmol/L (3.5-5.1); PROTEIN - SERUM 6.6 g/dL (6.4-8.2)
--- NOTE | 2016-12-12 07:00 | NUR ---
Received report from TYRON Caldwell and assumed care of patient. Patient currently awake and alert, confused. Left subclavian CVL in place, see iv flowsheet. Midline incision connected to wound vac. Left lateral incision to wound vac, leak noted. Right DAMION drain with clean dressing. De La Fuente cath draining concentrated urine. Left AKA. See shift assessment flowsheet for all findings.
--- NOTE | 2016-12-12 07:50 | NUR ---
in room to see patient. Wound vac removed from left lateral wound, colostomy bag applied per 's request.
--- NOTE | 2016-12-12 08:46 | NUR ---
Paged and received call back regarding patient's right leg pedal and post tib pulses being faint with doppler and leg cold to touch. Stat order for venous US scna and initiate Heparin gtt per protocol received.
--- NOTE | 2016-12-12 09:15 | NUR ---
Marguerite with US here to do venous scan of patients right leg.
--- NOTE | 2016-12-12 09:45 | NUR ---
AM meds administered per EMAR. All lines taken down and replaced per hospital protocol. IV lines labeled both pump and tubing. Colostomy bag that was applied earlier draining effectively. Patient remains confused.
[2016-12-12 10:48] LABS: APTT 35.6 SECONDS (22.8-39.4); INR 1.17 (0.85-1.17); PROTIME 14.8 SECONDS (11.6-15.0)
--- NOTE | 2016-12-12 12:00 | NUR ---
here to see patient. Okayed for patient to continue Heparin gtt. Aware that venous scan verified blood flow to Right leg.
--- NOTE | 2016-12-12 13:50 | NUR ---
Patient remains confused, keeps saying that he wants to go. Also told me to [facility].
--- NOTE | 2016-12-12 14:59 | NUR ---
Patient sleeping at this time. VSS/.
--- NOTE | 2016-12-12 15:11 | NUR ---
Patients family in room, update given. Colostomy continues to drain well on left abdomen over incision site.
--- NOTE | 2016-12-12 17:19 | NUR ---
Patient taken to CT for stat CT of Abdomen per Gerardo.
--- NOTE | 2016-12-12 17:40 | NUR ---
Patient back from CT. Complete linen change and bath performed on patient. Pt does not know where he is at this time and asks us to hurry with bath. Right AKA dressing change performed, pt tolerated well. Jimmy drain attached to old dressing and came out appx 3 inches. Will inform .
--- NOTE | 2016-12-12 18:00 | NUR ---
called and spoke to me, left Cam to be DC per CT scan. Informed him of loose rita drain to Right AKA, he will look at tomorrow.
--- NOTE | 2016-12-12 18:53 | NUR ---
PTT resulted, gtt changed per protocol. Next PTT order placed
--- NOTE | 2016-12-12 19:10 | NUR ---
REPORT RECEIVED FROM CRISTIAN ACKERMAN, AND CARE TAKEN OVER. ASLEEP UPAN ARRIVAL OF ROOM, BUT AWAKENS EASILY. PATIENT IS CONFUSED TO TIME AND PLACE. STATES "HE DOES NOT KNOW WHAT HOSPITAL I'M IN" PATIENT REORIENTED. NGT IN LEFT NARE HOOKED TO LIS. PLACEMENT VERIFIED. LEFT SUBCLAVIAN CENTRAL LINE IS INTACT, DRESSING C/D/I. SEE IV FLOWSHEET FOR MEDS. MIDLINE INCISION WITH WOUND VAC CONNECTED, OSTOMY BAG ON LEFT SIDE IS C/D/I AND WITHOUT LEAKAGE. LITTLE DRAINAGE NOTED. COLOSTOMY BAG WAS PLACED ON LEFT INCISION TODAY TO CATCH DRAINAGE, SITE IS C/D/I. DAMION DRAIN ON LEFT SIDE WAS REMOVED TODAY, DRESSING C/D/I. DAMION DRAIN ON RIGHT SIDE HAS SCANT DRAINAGE, FLUSHED PER PROTOCOL. BOSWELL DRAINING CONCENTRATED URINE. LEFT AKA, PEDAL PULSE PALPABLE IN RIGHT FOOT. SEE FLOWSHEET FOR DETAILS, VSS, WILL MONITOR.
--- NOTE | 2016-12-12 21:00 | NUR ---
PATIENT DENIES NEED AT THIS TIME, SLIGHTLY REPOSITIONED TO LEFT SIDE. NO VISITORS AT THIS TIME.
--- NOTE | 2016-12-12 23:00 | NUR ---
REASSESSMENT COMPLETE. NO ACUTE CHANGES AT THIS TIME, SEE REASSESSMENT FLOWSHEET FOR DETAILS. PATIENT DENIES NEED OR PAIN. WILL CONTINUE TO MONITOR.
[2016-12-13] VITALS (23 sets, daily range): BP systolic 134–170; BP diastolic 73–94
--- NOTE | 2016-12-13 01:00 | NUR ---
PARTIAL BED BATH GIVEN, PARTIAL LINEN CHANGE. PATIENT TOLERATED WELL.
--- NOTE | 2016-12-13 03:00 | NUR ---
REASSESSMENT COMPLETE, NO ACUTE CHANGES WITH PATIENT. VSS, WILL MONITOR.
[2016-12-13 04:27] LABS: BASOPHILS 0.2 % (0.0-2.0); EOSINOPHILS 1.4 % (0-7); HEMOGLOBIN 9.7 g/dL (13.5-17.5); IMMATURE GRANULOCYTES 0.6 % (0-5); LYMPHOCYTES 6.9 % (15-50); MCHC 32.3 g/dL (31.0-37.0); MCV 89.6 fL (80.0-100.0); MEAN PLATELET VOLUME 10.2 fL (7.4-10.4); MONOCYTES 6.3 % (2-11); NEUTROPHILS 84.6 % (40-80); PLATELET COUNT 480 10x3/uL (130-400); RBC 3.35 10x6/uL (4.20-6.10); RDW 15.4 % (11.5-14.5); WBC 14.9 10x3/uL (4.8-10.8)
[2016-12-13 04:46] LABS: ALBUMIN 2.5 g/dL (3.4-5.0); ANION GAP 10.7 mmol/L (8-16); BILIRUBIN - TOTAL 1.6 mg/dL (0.2-1.3); CALCIUM 8.4 mg/dL (8.5-10.1); CARBON DIOXIDE 27.5 mmol/L (21.0-32.0); CREATININE - SERUM 1.1 mg/dL (0.6-1.3); MAGNESIUM - SERUM 2.1 mg/dL (1.8-2.4); POTASSIUM - SERUM 4.2 mmol/L (3.5-5.1); PROTEIN - SERUM 6.8 g/dL (6.4-8.2)
--- NOTE | 2016-12-13 05:00 | NUR ---
PATIENT WITHOUT COMPLAINT. DENIES PAIN. WILL MONITOR.
--- NOTE | 2016-12-13 09:27 | NUR ---
NUTRITION MONITORING & EVAL CHART REVIEWED. PT EXTUBATED. CONTINUES TPN AND LIPIDS. RD FOLLOWING
--- NOTE | 2016-12-13 19:15 | NUR ---
ASSESSMENT COMPLETE, PATIENT RESTING WITH EYES CLOSED WHEN ENTERING THE ROOM, STATES HE HAS HAD A BUSY DAY AND IS TIRED. STILL CONFUSED TO PLACE, TIME, AND SITUATION. PATIENT IS ON ROOM AIR WITH SATS IN HIGH 90'S, NORMAL SINUS ON MONITOR, BREATHING IS SHALLOW AND NON LABORED. FINE CRACKLES HEARD WITH LUNG SOUNDS. COUGH IS WEAK AND NON-PRODUCTIVE. BOWEL IS DISTENDED WITH MULTIPLE DRAINS AND INCISIONS, SEE ASSESSMENT FOR MORE DETAILS. ALL DRESSINGS ARE C/D/I. DAMION DRAIN FLUSHED AT THIS TIME. NO RETURN NOTED BUT SOME LEAKED OUT OF DRAIN SITE WHEN FLUSHED. BOSWELL CATHETER DRAINING CONCENTRATED URINE. LEFT LEG IS RECENT AKA, SITE IS WNL AND WITHOUT SIGNS OF INFECTION. PEDAL PULSE IN RIGHT LEG IS STRONG AND PALPABLE, CAP REFILL LESS THAN 3. PATIENT DENIES NEED AT THIS TIME, STATES HE JUST WANTS TO REST. VSS, WILL CONTINUE TO MONITOR.
--- NOTE | 2016-12-13 21:05 | NUR ---
MEDS GIVEN, NO VISITORS AT THIS TIME.
--- NOTE | 2016-12-13 23:00 | NUR ---
REASSESSMENT COMPLETE, NO ACUTE CHANGES. SEE REASSESSMENT FOR DETAILS.
[2016-12-14] VITALS (24 sets, daily range): BP systolic 107–166; BP diastolic 65–128
--- NOTE | 2016-12-14 01:00 | NUR ---
PATIENT RESTING IN BED WITH EYES CLOSED, VSS.
--- NOTE | 2016-12-14 03:00 | NUR ---
REASSESSMENT COMPLETE. NO ACUTE CHANGES. DAMION DRAIN FLUSHED, MINIMAL AMOUNT OF PURULENT DRAINAGE NOTED IN DRAIN.
--- NOTE | 2016-12-14 05:00 | NUR ---
PATIENT DENIES NEED, REPOSITIONED FOR COMFORT AND GIVEN PARTIAL LINEN CHANGE.
[2016-12-14 05:06] LABS: BASOPHILS 0.3 % (0.0-2.0); EOSINOPHILS 2.4 % (0-7); HEMATOCRIT 29.8 % (42.0-54.0); HEMOGLOBIN 9.8 g/dL (13.5-17.5); IMMATURE GRANULOCYTES 0.7 % (0-5); LYMPHOCYTES 7.2 % (15-50); MCH 28.8 pg (26.0-34.0); MCHC 32.9 g/dL (31.0-37.0); MEAN PLATELET VOLUME 10.5 fL (7.4-10.4); MONOCYTES 9.4 % (2-11); PLATELET COUNT 540 10x3/uL (130-400); RDW 15.1 % (11.5-14.5); WBC 12.3 10x3/uL (4.8-10.8)
[2016-12-14 05:09] LABS: MCV 87.6 fL (80.0-100.0)
[2016-12-14 05:22] LABS: ALBUMIN 2.4 g/dL (3.4-5.0); ALKALINE PHOSPHATASE 210 U/L (46-116); BILIRUBIN - TOTAL 1.62 mg/dL (0.2-1.3); CALC OSMOLALITY 273 mosm/kg (275-300); CALCIUM 8.5 mg/dL (8.5-10.1); CARBON DIOXIDE 26.1 mmol/L (21.0-32.0); CHLORIDE - SERUM 102 mmol/L (98-107); GLUCOSE 104 mg/dL (74-106); POTASSIUM - SERUM 4.1 mmol/L (3.5-5.1); PROTEIN - SERUM 7.1 g/dL (6.4-8.2); SODIUM 135 mmol/L (136-145); UREA NITROGEN 25 mg/dL (7-18); eGFR NON AFRICAN AMERICAN 79 mL/min (90-120)
[2016-12-14 05:28] LABS: ALT (SGPT) 34 U/L (10-68)
--- NOTE | 2016-12-14 19:10 | NUR ---
SHIFT ASSESSMENT COMPLETE, PATIENT WILL NOT ANSWER TO QUESTIONS WHEN I ASK IF HE KNOWS WHERE HE IS. STATES HE IS READY TO GET IN BED AND GO TO SLEEP. PATIENT ALREADY LAYING IN BED. S1S2 NOTED, LUNG SOUNDS CLEAR, PATIENT BREATHING IS SHALLOW, POOR EFFORT ON DEEP BREATH AND COUGHING, COUGH NON-PRODUCTIVE. STOMACH IS DISTENDED WITH MULTIPLE INCISIONS AND DRAINS, SEE FLOWSHEET FOR DETAILS. DAMION DRAIN FLUSHED PER ORDER AT THIS TIME. SOME OF FLUSH LEAKED AROUND SITE. ALL DRESSINGS ON ABDOMEN ARE C/D/I. BOSWELL DRAINING CONCENTRATED URINE, LEFT AKA, RIGHT FOOT IS COOL, WITH PALPABLE PEDAL PULSE AND CAP REFILL LESS THAN 3 SECONDS. RIGHT SUBCLAVIAN IS WITHOUT REDNESS, DRESSING C/D/I. SEE IV FLOWSHEET FOR DETAILS. VSS, PATIENT DENIES NEED AT THIS TIME. WILL CONTINUE TO MONITOR.
--- NOTE | 2016-12-14 19:13 | NUR ---
0715-DR MARLEY AT [facility]-INFORMED OF DRAINAGE LOW FROM [id number] FLUSH DONE ORDERED -VERBAL GIVEN TO CONTINUE-WOUND VAC REMOVED BY DR MARLEY-NOTED TO SMALL AREAS ON INCISION LINE-2.5MM DEPTH-WIDTH 3CM -[id number] RED TISSUE-ALL CLIPS INTACT AND NO DRAINAGE NOTED-DRY DRG APPLIED FOR PROTCTION OF PT TOUCHING INCISION LINE-L OSTOMY BAG NOT PATENT-SAME REPLACED 2CM BAG 1030-PHYSICAL THERAPY X2 TECH AT BEDSIDE-ASSISTED PT TO CHAIR-SEE PT FLOW RECORD-PT BELIGERENT SWEARING -PUSHED OUT SUPPORTIVE PILLOW-STATED STAFF ROUGH LIKE BULLS IN A [employer] 1130-DR MONTERO AT [facility]-ATTEMPTED TO REPLACE BACK ARM SUPPORTIVE PILLOW -PT REFUSED WTH VERBAL AGRESSION 1230- SITTING WITH PT -PT APPEARS CALMER 1300-RETURNED TO BED WITH PT AND REPOSITIONED IN BED 1500- AT BEDSIDE 1730-PT AWAKE AND ALERT-NOT ABLE TO STATE LOCATION/SITUATION
--- NOTE | 2016-12-14 21:00 | NUR ---
NO VISITORS AT THIS TIME, MEDS GIVEN.
--- NOTE | 2016-12-14 23:00 | NUR ---
REASSESSMENT COMPLETE, NO CHANGES, PT DENIES NEED. VSS, WILL MONITOR.
[2016-12-15] VITALS (23 sets, daily range): BP systolic 123–160; BP diastolic 76–93
--- NOTE | 2016-12-15 01:00 | NUR ---
PATIENT SHAVED, BED BATH GIVEN, COMPLETE LINEN CHANGE. PATIENT TOLERATED WELL, DENIES FURTHER NEED.
--- NOTE | 2016-12-15 03:10 | NUR ---
REASSESSMENT COMPLETE. SEE FLOWSHEET FOR DETAILS. PATIENT DENIES NEED.
--- NOTE | 2016-12-15 04:15 | NUR ---
I'S AND O'S COMPLETE. DAMION DRAIN FLUSHED PER ORDER.
[2016-12-15 04:38] LABS: BASOPHILS 0.4 % (0.0-2.0); EOSINOPHILS 2.7 % (0-7); HEMATOCRIT 29.8 % (42.0-54.0); HEMOGLOBIN 9.9 g/dL (13.5-17.5); IMMATURE GRANULOCYTES 0.6 % (0-5); LYMPHOCYTES 9.7 % (15-50); MCH 28.9 pg (26.0-34.0); MCHC 33.2 g/dL (31.0-37.0); MCV 86.9 fL (80.0-100.0); MEAN PLATELET VOLUME 10.4 fL (7.4-10.4); NEUTROPHILS 76.6 % (40-80); PLATELET COUNT 570 10x3/uL (130-400); RBC 3.43 10x6/uL (4.20-6.10); RDW 14.8 % (11.5-14.5); WBC 11.3 10x3/uL (4.8-10.8)
[2016-12-15 04:54] LABS: ALBUMIN 2.4 g/dL (3.4-5.0); ALKALINE PHOSPHATASE 217 U/L (46-116); ALT (SGPT) 35 U/L (10-68); CALC OSMOLALITY 274 mosm/kg (275-300); CALCIUM 8.5 mg/dL (8.5-10.1); CARBON DIOXIDE 25.9 mmol/L (21.0-32.0); CHLORIDE - SERUM 100 mmol/L (98-107); CREATININE - SERUM 0.9 mg/dL (0.6-1.3); GLUCOSE 114 mg/dL (74-106); PROTEIN - SERUM 7.5 g/dL (6.4-8.2); SODIUM 135 mmol/L (136-145); UREA NITROGEN 23 mg/dL (7-18); eGFR NON AFRICAN AMERICAN 89 mL/min (90-120)
--- NOTE | 2016-12-15 05:15 | NUR ---
PATIENT RESTING IN BED WITH EYES CLOSED. VSS.
--- NOTE | 2016-12-15 19:30 | NUR ---
1930: ASSESSMENT COMPLETE. S1S2. RR SHALLOW; CLEAR BILATERALLY IN UPPER LOBES; DIMINISHED BILATERALLY IN LOWER LOBES. DAMION DRAIN TO RIGHT ABD; COLOSTOMY X2 ON LEFT ABD; DRESSINGS CDI. LEFT AKA. RADIAL PULSES PALPATED. LEFT PEDAL PULSE PALPATED. ON ROOM AIR. PT CONFUSED TO PLACE; TIME; SITUATION. ON DROPLET ISO. 2100: MEDS GIVEN WITHOUT DIFFICULTY; REPOSITIONED FOR COMFORT; LEFT SIDE. 2315: REASSESSMENT COMPLETE. NO CHANGES FROM PREVIOUS ASSESSMENT. CALL LIGHT IN REACH. NO DISTRESS NOTED. WILL CONTINUE TO MONITOR.
[2016-12-16] VITALS (23 sets, daily range): BP systolic 107–159; BP diastolic 57–91
--- NOTE | 2016-12-16 03:00 | NUR ---
REASSESSMENT COMPLETE. NO CHANGES FROM PREVIOUS ASSESSMENT. SEE FLOW SHEET FOR DETAILS.
[2016-12-16 05:04] LABS: BASOPHILS 0.3 % (0.0-2.0); EOSINOPHILS 3.6 % (0-7); HEMATOCRIT 33.7 % (42.0-54.0); HEMOGLOBIN 11.1 g/dL (13.5-17.5); IMMATURE GRANULOCYTES 0.7 % (0-5); LYMPHOCYTES 8.7 % (15-50); MCHC 32.9 g/dL (31.0-37.0); MEAN PLATELET VOLUME 10.7 fL (7.4-10.4); MONOCYTES 10.3 % (2-11); NEUTROPHILS 76.4 % (40-80); PLATELET COUNT 671 10x3/uL (130-400); RBC 3.83 10x6/uL (4.20-6.10); RDW 14.7 % (11.5-14.5); WBC 12.1 10x3/uL (4.8-10.8)
[2016-12-16 05:40] LABS: ALBUMIN 2.7 g/dL (3.4-5.0); ANION GAP 12.7 mmol/L (8-16); BILIRUBIN - TOTAL 1.64 mg/dL (0.2-1.3); CALCIUM 8.8 mg/dL (8.5-10.1); CARBON DIOXIDE 27.3 mmol/L (21.0-32.0); CREATININE - SERUM 1.1 mg/dL (0.6-1.3); MAGNESIUM - SERUM 2.3 mg/dL (1.8-2.4); PROTEIN - SERUM 8.2 g/dL (6.4-8.2)
--- NOTE | 2016-12-16 07:30 | NUR ---
REPORT RECD PT CARE ASSUMED. PT IS AWAKE AND ALERT TO PLACE AND PERSON ONLY. S1S2 NOTES, SR PER CM. LUNG SOUNDS CLR BILAT, DIMINSHED IN BASES. PT HAS AKA TO LEFT SIDE, HEALING NICLEY. RIGHT FOOT DOPPLERED FOR PULSES, PRESENT. PT HAS COLOSTOMY X2, AND DAMION DRAIN INTACT. SEE SHIFT ASSESSMENT FOR FURTHER DETAIL.
--- NOTE | 2016-12-16 09:00 | NUR ---
PT REFUSES TO EAT AT THIS TIME. WILL TAKE PILLS WITH WATER OK.
--- NOTE | 2016-12-16 09:58 | NUR ---
NUTRITION MONITORING & EVAL CHART REVIEWED. CLEAR LIQUID DIET STARTED. CONTINUES TPN AND LIPIDS. RD FOLLOWING
--- NOTE | 2016-12-16 11:00 | NUR ---
PT FAMILY AT BEDSIDE. UPDATE PROVIDED.
--- NOTE | 2016-12-16 12:00 | NUR ---
PT UP TO CHAIR FOR ALMOST 2 HOURS TODAY.
--- NOTE | 2016-12-16 14:00 | NUR ---
PT RESTING QUIETLY, NO DISTRESS NOTED. VSS. BED IN LOW POSITION CALL LIGHT IN REACH.
--- NOTE | 2016-12-16 16:00 | NUR ---
PT REPOSITIONED FOR COMFORT. PT REMAINS CONFUSED AT THIS TIME, BUT IS COOPERATIVE. PT DENIES PAIN.
--- NOTE | 2016-12-16 18:00 | NUR ---
FAMILY AT BEDSIDE FOR VISITATION.
--- NOTE | 2016-12-16 19:30 | NUR ---
REPORT RECEIVED AND CARE ASSUMED. INITAL SHIFT ASSESSMENT COMPLETED. PT NOTED TO HAVE SOME CONFUSION ABOUT SITUATION AND PLACE. TALKING OF SPACE SHIPS BLASTING US OFF ON A RENDEZVOUS TO MARS. PT PLEASANT BUT VERY EASILY IRRITATED. REMAINS IN DROPLET ISOLATAION WITH PRECAUTIONS OBSERVED. TPN BAG #16 CURRENTLY RUNNING AT 75M/HR. PT BEING MONITORED PER STANDARD ICU PROTOCOL WITH ALL ALARMS ON AND VERIFIED TUBING LABELED AND DATED APPROPRIATE AND NOT DUE TO BE CHANGED AT THIS TIME.
--- NOTE | 2016-12-16 21:00 | NUR ---
MEDS GIVEN WITHOUT DIFFICULTY. NO SWALLOWING DIFFICULTY NOTED. NO VISITORS AT THIS TIME
[2016-12-17] VITALS (13 sets, daily range): BP systolic 107–158; BP diastolic 64–89
--- NOTE | 2016-12-17 01:00 | NUR ---
PT HAS BEEN RESTING FAIRLY WELL SLEEPING BUT EASILY AWAKEN.
--- NOTE | 2016-12-17 03:00 | NUR ---
SHIFT REASSESSMENT COMPLETED NO SIGNIFICANT CHANGES
[2016-12-17 04:29] LABS: BASOPHILS 0.7 % (0.0-2.0); EOSINOPHILS 4.3 % (0-7); HEMATOCRIT 30.8 % (42.0-54.0); IMMATURE GRANULOCYTES 0.7 % (0-5); LYMPHOCYTES 14.5 % (15-50); MCH 28.8 pg (26.0-34.0); MCHC 32.5 g/dL (31.0-37.0); MCV 88.8 fL (80.0-100.0); MEAN PLATELET VOLUME 10.5 fL (7.4-10.4); MONOCYTES 11.6 % (2-11); NEUTROPHILS 68.2 % (40-80); PLATELET COUNT 650 10x3/uL (130-400); RBC 3.47 10x6/uL (4.20-6.10); RDW 14.9 % (11.5-14.5); WBC 10.1 10x3/uL (4.8-10.8)
[2016-12-17 04:48] LABS: ALBUMIN 2.5 g/dL (3.4-5.0); ANION GAP 10.1 mmol/L (8-16); BILIRUBIN - TOTAL 1.32 mg/dL (0.2-1.3); CALCIUM 8.4 mg/dL (8.5-10.1); CARBON DIOXIDE 28.1 mmol/L (21.0-32.0); CREATININE - SERUM 1.1 mg/dL (0.6-1.3); MAGNESIUM - SERUM 2.5 mg/dL (1.8-2.4); PHOSPHOROUS 3.9 mg/dL (2.5-4.9); POTASSIUM - SERUM 4.2 mmol/L (3.5-5.1); PROTEIN - SERUM 7.6 g/dL (6.4-8.2)
--- NOTE | 2016-12-17 05:15 | NUR ---
I&O COMPLETED. NOTE DAMION DRAIN WAS FLUSHED WITH 20ML NORMAL SALINE X 2 WITH ONLY 5 CC RETURN.
--- NOTE | 2016-12-17 07:00 | NUR ---
REPORT RECEIVED. ASSESSMENT COMPLETED. PATIENT REPOSITIONED FOR COMFORT. DENIES NEEDS. LEFT PATIENT WATCHING TELEVISON.
--- NOTE | 2016-12-17 15:26 | NUR ---
REPORT CALLED TO TYRON GOODMAN ON MED SURG WHEN THE ROOM IS CLEAN, SHE WILL CALL BACK AND WE WILL TRANSPORT THE PATIENT VIA BED TO ROOM 2217.
--- NOTE | 2016-12-17 15:57 | NUR ---
WOUND CARE ; PER DR. MARLEY'S VERBAL ORDER, PLACED WOUND VAC DRESSING IN ABDOMINAL INCISION AND STARTED WOUND VAC THERAPY AT -125MMHG MOD/CONTINUOUS. PT TOLERATED WELL.
--- NOTE | 2016-12-17 16:25 | NUR ---
PATIENT RECEIVED TO FLOOR FROM ICU VIA BED. PATIENT ALERT. RESPIRATIONS EVEN AND UNLABORED. ORIENTED TO ROOM. SIDE RAILS UP X3. BED IN LOW POSITION. CALL LIGHT IN REACH. BED ALARM ON. ISOLATION PROTOCOLS IN USE. WILL CONTINUE TO MONITOR.
--- NOTE | 2016-12-17 18:30 | NUR ---
PATIENT IN MID CHASE POSITION RESTING WITH EYES CLOSED. RESPIRATIONS EVEN AND UNLABORED. SIDE RAILS UP X3. BED IN LOW POSITION. CALL LIGHT IN REACH.
--- NOTE | 2016-12-17 19:15 | NUR ---
RECIEVED SHIFT REPORT. PT IS LYING IN BED. ALERT AND ORIENTED BUT CONFUSED TO TIME AND SITUATION. IV IS PATENT AND FLUIDS ARE RUNNING PER ORDER. PT DENIES ANY PAIN WITH SENIOR PLANNING MANAGER PUMP. ISOLATION PRECAUTIONS IN PLACE. SCD TO RIGHT LEG. INCISION TO LEFT AKA C/D/I. BOSWELL IS DRAINING URINE BY GRAVITY. COLOSTOMIES X 2 INTACT WITH SCANT AMOUNT OF DRAINAGE NOTED. DAMION DRAIN NOTED TO RIGHT ABDOMEN COMPRESSED AND C/D/I. WOUND VAC NOTED TO MID UPPER ABDOMEN WITH SITE C/D/I. 1ST STEP OVERLAY MATTRESS IN PLACE FOR SKIN COMFORT. NO NEEDS ARE VERBALIZED AT THIS TIME. WILL CONTINUE TO MONITOR. SIDE RAILS ARE UP X 2. BED IS IN LOWEST POSITION. BED ALARM IS ON FOR SAFETY. CALL LIGHT IS WITHIN REACH.
--- NOTE | 2016-12-17 20:25 | NUR ---
OT NOTE: PT COMPLETED BUE AAROM FOR INCREASED ENDURANCE AND DECREASE RISK OF SKIN BREAKDOWN. THANK YOU, ABNER VICTOR/Priscilla
--- NOTE | 2016-12-17 20:27 | NUR ---
SHIFT ASSESSMENT COMPLETED. NIGHT MEDS GIVEN WITH NO PROBLEMS. NO NEEDS ARE VOICED. WILL MONITOR. SIDE RAILS X 2. BED LOW. CALL LIGHT IN REACH.
[2016-12-18] VITALS: BP 142/65
[2016-12-18 04:00] VITALS: BP 136/62
[2016-12-18 05:56] LABS: BASOPHILS 0.5 % (0.0-2.0); EOSINOPHILS 4.7 % (0-7); HEMATOCRIT 31.8 % (42.0-54.0); HEMOGLOBIN 10.4 g/dL (13.5-17.5); IMMATURE GRANULOCYTES 0.5 % (0-5); LYMPHOCYTES 11.4 % (15-50); MCH 28.8 pg (26.0-34.0); MCHC 32.7 g/dL (31.0-37.0); MCV 88.1 fL (80.0-100.0); MEAN PLATELET VOLUME 10.7 fL (7.4-10.4); MONOCYTES 11.4 % (2-11); NEUTROPHILS 71.5 % (40-80); PLATELET COUNT 681 10x3/uL (130-400); RBC 3.61 10x6/uL (4.20-6.10); RDW 15.1 % (11.5-14.5); WBC 9.4 10x3/uL (4.8-10.8)
[2016-12-18 06:15] LABS: ALBUMIN 2.6 g/dL (3.4-5.0); BILIRUBIN - TOTAL 1.1 mg/dL (0.2-1.3); CALCIUM 8.9 mg/dL (8.5-10.1); CARBON DIOXIDE 25.2 mmol/L (21.0-32.0); CREATININE - SERUM 1.1 mg/dL (0.6-1.3); MAGNESIUM - SERUM 2.5 mg/dL (1.8-2.4); POTASSIUM - SERUM 4.2 mmol/L (3.5-5.1); PROTEIN - SERUM 8.2 g/dL (6.4-8.2)
[2016-12-18 06:19] LABS: PHOSPHOROUS 5.2 mg/dL (2.5-4.9)
[2016-12-18 07:44] VITALS: BP 154/71
--- NOTE | 2016-12-18 09:00 | NUR ---
ASSESSMENT PE RFLOW SHEET.PT WITHOUT DISTRESS.NPO FOR CT.CONFUSED THIS AM.WITHOUT SIGNS OF PAIN.DROPLET ISOLATION MAINTAINED.
--- NOTE | 2016-12-18 11:00 | NUR ---
BACK FROM CT
--- NOTE | 2016-12-18 11:38 | NUR ---
VERY TEARFUL THIS AFTERNOON.CALL TO OVER AT SURG.CADDO TO HAVE HIM CALL.
[2016-12-18 12:05] VITALS: BP 162/85
--- NOTE | 2016-12-18 12:58 | NUR ---
NUTRITION MONITORING & EVAL CHART REVIEWED. PT CONTINUES TPN AND LIPIDS. CLEAR LIQUID DIET. WILL CONTINUE TO MONITOR DIET ADVANCEMENT, PT PROGRESS. RD FOLLOWING
--- NOTE | 2016-12-18 13:39 | NUR ---
PT OBSERVED SITTING IN BED. PT WITH TRIAL ATTEMPT AT REGULAR DIET. PT DID WELL. REQUIRED CUES TO USE SPOON AND WATER PUMP OPERATOR CUP, HE HAS HAD ASSISTANCE THROUGHOUT HOSP. BECAME AGITATED WITH WHEN SHE SPOKE OF HIM DOING IT HIMSELF. PERFORMED COGNITIVE ACT: PT ORIENTED TO PLACE WITH SEVERAL CUES ( I.E. ARE WE IN HOSPITAL OR SENIOR LIVING ) UNABLE TO NAME INDEP...PT ALSO ORIENTED TO TIME/MONTH WITH SEVERAL VERBAL CUES..IS NOT AWARE OF PHSICAL LIMITATIONS OR SAFETY
[2016-12-18 15:09] VITALS: BP 131/87
--- NOTE | 2016-12-18 15:30 | NUR ---
SMILING THIS AFTERNOON.PT GETS TO HAVE REGULAR DIET.STILL CONFUSIJON,BUT MOOD BETTER.
--- NOTE | 2016-12-18 15:55 | NUR ---
Rehab Prescreening Consult recieved and the chart has been reviewed. He certainly has IRF qualifying diagnoses, but according to the notes he is very confused and uncooperative with PT. Rehab will follow his progress with therapy to determine whether he will be able to participate in three hrs of therapy daily 5 days a week. Yodit Buckley RN Clinical Liaison, Rehab
--- NOTE | 2016-12-18 18:30 | NUR ---
OT NOTE: PT COMPLETED SIMPLE HYGIENE TASK WITH MIN A. THANK YOU, ABNER VICTOR/Priscilla
--- NOTE | 2016-12-18 19:15 | NUR ---
BEDSIDE REPORT RECEIVED AND CARE OF PT ASSUMED. PT LYING IN SUPINE POSITION ON 1ST STEP AIR MATTRESS OVERLAY. LEFT SC PATENT WITH TPN INFUSING AT 75 ML / HR AND NS INFUSING AT KVO. LABEL MAKER IN USE FOR PAIN MANAGEMENT WITH MORPHINE SET AT 11/12/09. LEFT BKA WITH INCISION APPROXIMATED WITH RHINA. COLOSTOMIES X2 IN PLACE, WITH LEFT ABDOMINAL ONE LEAKING...WILL REPLACE. BOSWELL CATHETER DRAINING TO GRAVITY WITN YELLOW URINE IN COLLECTION BAG. WILL MONITOR CLOSLEY FOR NEEDS.
--- NOTE | 2016-12-18 19:35 | NUR ---
CHANGED LEFT SIDE COLOSTOMY APPLIANCE, DUE TO LEAKAGE.
[2016-12-18 20:00] VITALS: BP 132/78
--- NOTE | 2016-12-18 21:33 | NUR ---
HS MEDICATIONS GIVEN. EMPTIED COLOSTOMY.
--- NOTE | 2016-12-18 22:00 | NUR ---
FLUSHED DAMION DRAIN WITH 2O ML OF SALINE.
[2016-12-19] VITALS: BP 140/73
--- NOTE | 2016-12-19 02:45 | NUR ---
BOSWELL BAG LEAKING. CHANGED TUBING AND BAG. WILL CONTINUE TO MONITOR.
--- NOTE | 2016-12-19 03:29 | NUR ---
FSBS 114 THIS CHECK REQUIRING NO COVERAGE PER SLIDING SCALE. STARTED NEW BAG OF TPN WITH NEW TUBING. WILL CONTINUE TO MONITOR FOR NEEDS.
[2016-12-19 04:00] VITALS: BP 149/75
[2016-12-19 06:45] LABS: CALC OSMOLALITY 276 mosm/kg (275-300); CALCIUM 8.8 mg/dL (8.5-10.1); CARBON DIOXIDE 24.8 mmol/L (21.0-32.0); CHLORIDE - SERUM 102 mmol/L (98-107); GLUCOSE 84 mg/dL (74-106); MAGNESIUM - SERUM 2.5 mg/dL (1.8-2.4); POTASSIUM - SERUM 4.5 mmol/L (3.5-5.1); SODIUM 137 mmol/L (136-145); UREA NITROGEN 24 mg/dL (7-18); eGFR NON AFRICAN AMERICAN 79 mL/min (90-120)
[2016-12-19 07:05] LABS: BASOPHILS 0.5 % (0.0-2.0); EOSINOPHILS 4.4 % (0-7); HEMATOCRIT 30.6 % (42.0-54.0); HEMOGLOBIN 9.9 g/dL (13.5-17.5); IMMATURE GRANULOCYTES 0.4 % (0-5); MCH 28.6 pg (26.0-34.0); MCHC 32.4 g/dL (31.0-37.0); MCV 88.4 fL (80.0-100.0); MEAN PLATELET VOLUME 10.4 fL (7.4-10.4); MONOCYTES 12.5 % (2-11); NEUTROPHILS 68.2 % (40-80); PLATELET COUNT 714 10x3/uL (130-400); RBC 3.46 10x6/uL (4.20-6.10); RDW 15.2 % (11.5-14.5); WBC 9.4 10x3/uL (4.8-10.8)
--- NOTE | 2016-12-19 07:30 | NUR ---
AWAKE CONFUSED SOME WHAT BOSWELL CATH INTACT AND DRAINING YELLOW URINE OSTOMY BAGS TIME [address] DARK STOOL IN ONE BAG AND SEROUS DRAINAGE IN OTHER BAG ALSO .DAMION IN PLACE AND FLUSHED WITH 20CC OF SALINE AT PRESENT.WOUND VAC IN PLACE TO ABD AT PRESENT.TPN AND N/S INFUSING VIA LEFT CVL AT PRESENT.
[2016-12-19 07:57] VITALS: BP 163/82
--- NOTE | 2016-12-19 09:25 | NUR ---
BOSWELL CATH DCD 800CC IN BAG AT PRESENT.
--- NOTE | 2016-12-19 11:00 | NUR ---
SLEEPING QUIETLY AT PRESENT RESP EVEN AND UNLABORED.
[2016-12-19 12:35] VITALS: BP 153/80
--- NOTE | 2016-12-19 13:43 | NUR ---
SLEEPING QUIETLY AT PRESENT COLOR ADQ SKIN WARM AND DRY RESP EVEN AND UNLABORD AT PRESENT.02 CONT AT 2L N/C OSTOMY TIMES TWO IN PLACE LEFT SIDE DAMION ON RT FLUSHED WITH 20CC N/S RET SLIGHTLY SEROUS .
--- NOTE | 2016-12-19 14:00 | NUR ---
PT REFUSES TO PUT GOWN ON [facility] WONT KEEP SHEET ON EITHER.
--- NOTE | 2016-12-19 15:00 | NUR ---
PT CONFUSED HOLLERING OUT FOR FAMILY INSTRUCTED NOT HERE YOU ARE IN HOSPITAL.
[2016-12-19 15:31] VITALS: BP 157/81
--- NOTE | 2016-12-19 16:00 | NUR ---
REPOSITIONED FOR COMFORT AT PRESENT DENIES ANY NEEDS.
--- NOTE | 2016-12-19 16:30 | NUR ---
LEFT STUMP CLEAN DRY INTACT RHINA INTACT ALSO AT PRESENT.
--- NOTE | 2016-12-19 18:35 | NUR ---
INCONT OF URINE LINENS GD AT PRESENT.
--- NOTE | 2016-12-19 18:58 | NUR ---
OT NOTE: PT COMPLETED BUE GROSS MOTOR AXS FOR INCREASED I WITH ADLS. PT COMPLETED SIMPLE GROOMING TASK WITH MAX VERBAL CUES SECONDARY TO INCREASED CONFUSION. THANK YOU, ABNER VICTOR/Priscilla
[2016-12-19 20:00] VITALS: BP 156/82
--- NOTE | 2016-12-19 20:57 | NUR ---
REC'D.IN BED CONFUSED TO PERSON,PLACE,SITUATION.INCONTINENT OF URINE LINENS CHGED.DRSG. INTACT TO RIGHT LAT. LEG.DRSG.LEFT AKA DRY AND INTACT.WILL CONTINUE TO MONITOR FOR ANY CHGES.IN NEUROVASCULAR STATUS AND FOLLOW CURRENT PLAN OF CARE.
--- NOTE | 2016-12-19 22:48 | NUR ---
PT REMAINS IN DROPLET ISOLATION. HE HAS A NEW LEFT AKA WITH RHINA IN PLACE AND NO DRESSING ON IT. HE IS PLEASANT BUT COMES OFF A LITTLE CONFUSED. THE BED IS LOW, RAILS UP X'S 2 WITH THE CALL LIGHT AT HAND.
[2016-12-20] VITALS: BP 166/89
[2016-12-20 04:00] VITALS: BP 161/81
[2016-12-20 05:28] LABS: BASOPHILS 0.2 % (0.0-2.0); EOSINOPHILS 1.6 % (0-7); HEMATOCRIT 32.3 % (42.0-54.0); HEMOGLOBIN 10.5 g/dL (13.5-17.5); IMMATURE GRANULOCYTES 0.3 % (0-5); LYMPHOCYTES 9.7 % (15-50); MCH 28.7 pg (26.0-34.0); MCHC 32.5 g/dL (31.0-37.0); MCV 88.3 fL (80.0-100.0); MEAN PLATELET VOLUME 10.3 fL (7.4-10.4); NEUTROPHILS 80.2 % (40-80); PLATELET COUNT 750 10x3/uL (130-400); RBC 3.66 10x6/uL (4.20-6.10); RDW 15.1 % (11.5-14.5)
[2016-12-20 05:29] LABS: WBC 14.9 10x3/uL (4.8-10.8)
[2016-12-20 05:54] LABS: CALC OSMOLALITY 273 mosm/kg (275-300); CALCIUM 9.1 mg/dL (8.5-10.1); CARBON DIOXIDE 24.1 mmol/L (21.0-32.0); CHLORIDE - SERUM 102 mmol/L (98-107); GLUCOSE 98 mg/dL (74-106); MAGNESIUM - SERUM 2.3 mg/dL (1.8-2.4); POTASSIUM - SERUM 4.1 mmol/L (3.5-5.1); SODIUM 136 mmol/L (136-145); UREA NITROGEN 19 mg/dL (7-18); eGFR NON AFRICAN AMERICAN 79 mL/min (90-120)
--- NOTE | 2016-12-20 07:30 | NUR ---
AWAKE CONFUSED AT PRESENT PT ATTEMPTED TO RE-ORIENTED TO PLACE PERSON AND SITUATION AT PRESENT OSTOMY TIMES [address] IN PLACE WOUND VAC TO MID ABD IN PLACE AT PRESENT.DROPLET ISOLATION IN PLACE.
[2016-12-20 08:13] VITALS: BP 159/87
--- NOTE | 2016-12-20 09:39 | NUR ---
WOUND CARE VAC DRESSING CHANGE: WOUND VAC DRESSING CHANGE WOUND TYPE: SURGICAL WOUND LOCATION: MIDLINE LOWER ABD WOUND AGE IN MONTHS: DEBRIDEMENT ATTEMPTED IN LAST 10 DAYS? DATE/TYPE: SERIAL DEBRIDEMENTS REQUIRED? MEASUREMENT DATE: 12/20/16 3.5CM X 1.5CM X 2.5CM FULL THICKNESS? YES MUSCLE, TENDON OR BONE EXPOSED? NO UNDERMINING? NO TUNNELING/SINUS? NO APPEARANCE OF WOUND BED : RED/BEEFY EXUDATE (AMOUNT, COLOR, ODOR): SMALL SANGUINOUS NO ODOR FOAM TYPE: BLACK # OF PIECES USED:1PIECE TO WOUND BED/1PIECE FOR TRAC PAD EDUCATION: PURPOSE OF NEGATIVE PRESSURE WOUND DRESSING
--- NOTE | 2016-12-20 11:00 | NUR ---
LAYING QUIETLY WITH EYES CLOSES AT PRESENT.
[2016-12-20 12:43] VITALS: BP 173/83
--- NOTE | 2016-12-20 13:00 | NUR ---
QUIET IN ROOM AT PRESENT DENIES ANY NEEDS FAMILY AT BEDSIDE.
--- NOTE | 2016-12-20 14:00 | NUR ---
SIT UP ON SIDE OF BED BY PT AT PRESENT LB WELL.
--- NOTE | 2016-12-20 14:48 | NUR ---
DAMION REMOVED AND CVL REMOVED TPN PLACED TO PIIC IN RT UPPER ARM AT PRESENT.
--- NOTE | 2016-12-20 14:50 | NUR ---
VS NO NEW ORDERS AT PRESENT.
--- NOTE | 2016-12-20 15:30 | NUR ---
REPOSITIONED FOR COMFORT STUMP UP ON PILLOW AT PRESENT RHINA IN TACT AT PRESENT SITE CLEAN AND DRY AT PRESENT.
[2016-12-20 15:50] VITALS: BP 144/81
[2016-12-20 21:03] VITALS: BP 146/60
[2016-12-21 01:17] VITALS: BP 147/80
--- NOTE | 2016-12-21 03:20 | NUR ---
REMAINS IN DROPLET ISOLATION. PT IS AWAKE WITH LEFT AKA OPEN TO AIR WITH RHINA INTACT. HE IS WEARING HIS SCD'S BUT IS NAKED AT THIS TIME AND WE ARE ASSISTING HIM WITH DRESSING FOR COMFORT. HE IS ON AN AIRBED AND HAS A WOUND VAC TO HIS ABD. WHICH IS SECURE.
[2016-12-21 04:00] VITALS: BP 150/85
[2016-12-21 06:10] LABS: BASOPHILS 0.5 % (0.0-2.0); EOSINOPHILS 2.5 % (0-7); HEMOGLOBIN 10.1 g/dL (13.5-17.5); IMMATURE GRANULOCYTES 0.3 % (0-5); LYMPHOCYTES 12.4 % (15-50); MCH 28.9 pg (26.0-34.0); MCHC 32.6 g/dL (31.0-37.0); MCV 88.6 fL (80.0-100.0); MEAN PLATELET VOLUME 10.2 fL (7.4-10.4); MONOCYTES 9.7 % (2-11); NEUTROPHILS 74.6 % (40-80); PLATELET COUNT 635 10x3/uL (130-400); RDW 15.3 % (11.5-14.5); WBC 13.1 10x3/uL (4.8-10.8)
[2016-12-21 06:33] LABS: CALC OSMOLALITY 276 mosm/kg (275-300); CARBON DIOXIDE 26.2 mmol/L (21.0-32.0); CHLORIDE - SERUM 100 mmol/L (98-107); GLUCOSE 110 mg/dL (74-106); MAGNESIUM - SERUM 2.2 mg/dL (1.8-2.4); POTASSIUM - SERUM 4.1 mmol/L (3.5-5.1); SODIUM 136 mmol/L (136-145); UREA NITROGEN 23 mg/dL (7-18); eGFR NON AFRICAN AMERICAN 79 mL/min (90-120)
--- NOTE | 2016-12-21 07:05 | NUR ---
ASSESSMENT PER FLOW SHEET.PT CONFUSED AND PUILLING AT PICC LINE AND COLOSTOMY THIS AM.BED CHANGE AND PICC LINE TAPED.ISOLATION MAINTAINED
[2016-12-21 08:24] VITALS: BP 162/88
--- NOTE | 2016-12-21 09:00 | NUR ---
COLOSTOMY PULLED OFF AND LEAKING.REPLACED WITH NEW KIT.PICC LINE STILL HAVING SOME BLOODY DRAINAGE.PICC LINE WRAPPED SO PT COULDNT PULL.MONITOR FOR NEEDS
[2016-12-21 12:42] VITALS: BP 155/79
--- NOTE | 2016-12-21 14:30 | NUR ---
LYING IN BED,WITHOUT DISTRESS.
--- NOTE | 2016-12-21 14:36 | NUR ---
PT ANXIOUS.CALL TO
--- NOTE | 2016-12-21 14:46 | NUR ---
ORDERS RECIEVED PER AND INITIATED. AT SIDE AND SAYS HE USUALLY ISNT LIKE THIS.
--- NOTE | 2016-12-21 15:27 | NUR ---
LEAVING,STATES SHE WILL BE BACK.STATES SHE THINKS HER WILL NAP.MONITOR FOR NEEDS.ISOLATION MAINTAINED.
--- NOTE | 2016-12-21 17:23 | NUR ---
RESTING WITHOUT DISTRESS.HAS STOPPED PULLING AT LINES AND COLOSTOMY.DECLINES TO EAT DINNER.HAS ONLY EATEN FEW BITES TODAY.DAUGHTER AT BEDSIDE.
[2016-12-21 18:39] VITALS: BP 145/79
[2016-12-21 20:49] VITALS: BP 143/75
[2016-12-22] VITALS: BP 124/74
--- NOTE | 2016-12-22 00:11 | NUR ---
PATIENT RESTING WITH EYES CLOSED. NO SIGNS OF DISTRESS. BED IN LOWEST POSITION AND CALL LIGHT WITHIN REACH.
[2016-12-22 04:00] VITALS: BP 142/84
[2016-12-22 06:48] LABS: BASOPHILS 0.2 % (0.0-2.0); EOSINOPHILS 0.3 % (0-7); HEMATOCRIT 29.3 % (42.0-54.0); HEMOGLOBIN 9.6 g/dL (13.5-17.5); IMMATURE GRANULOCYTES 0.4 % (0-5); LYMPHOCYTES 7.4 % (15-50); MCH 28.8 pg (26.0-34.0); MCHC 32.8 g/dL (31.0-37.0); MEAN PLATELET VOLUME 10.2 fL (7.4-10.4); MONOCYTES 7.5 % (2-11); NEUTROPHILS 84.2 % (40-80); PLATELET COUNT 620 10x3/uL (130-400); RBC 3.33 10x6/uL (4.20-6.10); RDW 15.1 % (11.5-14.5)
[2016-12-22 06:51] LABS: WBC 17.4 10x3/uL (4.8-10.8)
[2016-12-22 06:58] LABS: CALC OSMOLALITY 278 mosm/kg (275-300); CALCIUM 9.1 mg/dL (8.5-10.1); CARBON DIOXIDE 25.3 mmol/L (21.0-32.0); CHLORIDE - SERUM 103 mmol/L (98-107); GLUCOSE 134 mg/dL (74-106); MAGNESIUM - SERUM 2.4 mg/dL (1.8-2.4); POTASSIUM - SERUM 4.4 mmol/L (3.5-5.1); SODIUM 136 mmol/L (136-145); UREA NITROGEN 26 mg/dL (7-18); eGFR NON AFRICAN AMERICAN 79 mL/min (90-120)
[2016-12-22 08:07] VITALS: BP 154/73
--- NOTE | 2016-12-22 10:06 | NUR ---
PT REFUSING AM MEDS AND BOSWELL CATHETER AT PRESENT.WAITING ON FAMILY TO COME SEE HIM.
--- NOTE | 2016-12-22 11:00 | NUR ---
BOSWELL CATHETER INSERTED ORDERED.URINE TO LAB ORDERED.
[2016-12-22 12:03] VITALS: BP 154/72
[2016-12-22 16:07] VITALS: BP 134/66
--- NOTE | 2016-12-22 16:53 | NUR ---
REMAINS CONFUSED.REFUSES TO KEEP GOWN ON.STILL ONLY BITES OF FOOD AND SMALL AMOUNTS OF LIQUIDS.
--- NOTE | 2016-12-22 17:24 | NUR ---
GOING TO EAT DINNER.500CC OF CONCENTRATED URINE EMTPIED FROM BOSWELL BAG.
--- NOTE | 2016-12-22 18:03 | NUR ---
ATE 1/4 OF CHOPPED STEAK AND 1/4 OF RICE AND GRAVY FOR DINNER.HE HAS DRANK FULL GLASS OF TEA AND 3/4 GLASS OF ICE COFFEE.STILL CONFUSED AT PRESENT.500CC OF LIQUID STOOLS EMPTIED FROM COLOSTOMY.CONT PLAN OF CARE
--- NOTE | 2016-12-22 20:38 | NUR ---
PATIENT WAS WASHED UP OF DRIED BLOOD ON HIS HAND, CHEST, AND CHIN. PATIENT WAS REPORTED TO BE SCRATCHING HIS CHEST. AFTER THE CLEANING UP THE PATIENT, IT APPEARED THAT HE HAS SCRATCED THE SITE WHERE HE HAD A CENTRAL LINE. THE CHARGE NURSE VERIFIED THAT IT WAS INTACT BY APPEARENCE AND PLACE A BIO PACTH WITH SURGICAL GUAZE AND AN OPSITE OVER THE SITE. IN THE RIGHT UPPER QUADRANT BANDAGE CHAGED FROM WHERE THE DAMION DRAIN WAS REMOVED. THERE WAS A SCAB OVER THE SITE WITH NO SIGNS OF IRRATATION OR INFECTION, SURGICAL GUAZE AND AN OPSITE PLACED DUE TO THE ALTERED MENTAL STATUS. SMALL BORDER GUAZE PLACED ON RIGHT BUTTOCKS OVER A STAGE 2 PRESSURE ULCER WITH SCANT AMOUNT OF DRAINAGE. BOSWELL CATH WAS RELOCKED INTO THE STATLOCK.
[2016-12-22 21:43] VITALS: BP 143/78
--- NOTE | 2016-12-23 02:57 | NUR ---
PT LAYING IN BED DRESSING CHANGES TO PULLED CVL AND PULLED J-TUBE COMPLETED AREAS WITH SCAB OVER AND NO DRAINAGE OBSERVED NEURO CHECKS COMPLETED AND PT AAOX PLACE, TIME, AND SITUATION. MIRAPLEX APPLIED TO RIGHT BUTTOCK DUE TO SKIN BREAK DOWN IVP INFUSING WITH TPN AND FLUIDS ORDERED CALL LIGHT IN REACH SRX2 BED LOW AND LOCKED WILL MONITOR
[2016-12-23 04:11] LABS: BASOPHILS 0.4 % (0.0-2.0); EOSINOPHILS 1.3 % (0-7); HEMATOCRIT 25.8 % (42.0-54.0); HEMOGLOBIN 8.5 g/dL (13.5-17.5); IMMATURE GRANULOCYTES 0.5 % (0-5); LYMPHOCYTES 11.7 % (15-50); MCHC 32.9 g/dL (31.0-37.0); MCV 88.1 fL (80.0-100.0); MONOCYTES 11.6 % (2-11); NEUTROPHILS 74.5 % (40-80); PLATELET COUNT 511 10x3/uL (130-400); RBC 2.93 10x6/uL (4.20-6.10); RDW 15.3 % (11.5-14.5); WBC 15.9 10x3/uL (4.8-10.8)
[2016-12-23 04:20] LABS: ANION GAP 13.7 mmol/L (8-16); CALCIUM 8.8 mg/dL (8.5-10.1); CARBON DIOXIDE 26.6 mmol/L (21.0-32.0); CREATININE - SERUM 1.2 mg/dL (0.6-1.3); MAGNESIUM - SERUM 2.3 mg/dL (1.8-2.4); POTASSIUM - SERUM 4.3 mmol/L (3.5-5.1)
[2016-12-23 05:00] VITALS: BP 134/67
[2016-12-23 08:34] VITALS: BP 142/79
[2016-12-23 12:31] VITALS: BP 148/84
--- NOTE | 2016-12-23 13:12 | NUR ---
NUTRITION MONITORING & EVAL CHART REVIEWED, PT VISIT, FAMILY AT BEDSIDE. ~10% INTAKE LUNCH, FAMILY STATES THAT IS BETTER THAN THIS AM PT RARELY EATS BREAKFAST. FAMILY HAS BEEN PROVIDING OCCASIONAL MILKSHAKE, WHICH PT LIKES. WILL PROVIDE MILKSHAKE WITH MEALS, RICE AND GRAVY WHEN AVAILABLE. ENCOURAGED PO INTAKE, ADDED PREFERENCES TO DIET ORDER. NOTE REMERON TO START. RECOMMEND DECREASE TPN RATE TO 40 CC/HR. DC LIPIDS. RD FOLLOWING
--- NOTE | 2016-12-23 13:31 | NUR ---
WOUND VAC DRESSING CHANGE WOUND TYPE: surgical WOUND LOCATION: left WOUND AGE IN MONTHS: DEBRIDEMENT ATTEMPTED IN LAST 10 DAYS? DATE/TYPE: SERIAL DEBRIDEMENTS REQUIRED? MEASUREMENT DATE: 12/23/16 2cm x 1cm x 2cm (improved) FULL THICKNESS? yes MUSCLE, TENDON OR BONE EXPOSED? no UNDERMINING? no TUNNELING/SINUS? no APPEARANCE OF WOUND BED : red/beefy EXUDATE (AMOUNT, COLOR, ODOR): small, sanguinous, no odor FOAM TYPE: black # OF PIECES USED:1-wound bed 1-trac pad (2 total) EDUCATION: confused
[2016-12-23 16:19] VITALS: BP 135/78
--- NOTE | 2016-12-23 18:11 | NUR ---
HAS REMAINED CONFUSED TODAY.MORE COOPERATIVE,BUT DECLINES SOME MEDS AND MEALS THIS AFTERNOON.MORE OUTPUT FROM BOSWELL AFTER LASIX(600 CC).TOTAL FOR DAY 1600 CC.ASSESSMENT UNCHANGED.CONT PLAN OF CARE
[2016-12-23 19:00] VITALS: BP 137/70
[2016-12-24] VITALS: BP 146/88
[2016-12-24 04:00] VITALS: BP 147/84
[2016-12-24 05:34] LABS: BASOPHILS 0.2 % (0.0-2.0); EOSINOPHILS 3.3 % (0-7); HEMOGLOBIN 8.7 g/dL (13.5-17.5); IMMATURE GRANULOCYTES 0.3 % (0-5); LYMPHOCYTES 8.2 % (15-50); MCH 28.3 pg (26.0-34.0); MCHC 32.2 g/dL (31.0-37.0); MCV 87.9 fL (80.0-100.0); MEAN PLATELET VOLUME 10.3 fL (7.4-10.4); MONOCYTES 8.2 % (2-11); NEUTROPHILS 79.8 % (40-80); PLATELET COUNT 522 10x3/uL (130-400); RBC 3.07 10x6/uL (4.20-6.10); RDW 15.2 % (11.5-14.5); WBC 13.1 10x3/uL (4.8-10.8)
[2016-12-24 05:56] LABS: CALCIUM 9.2 mg/dL (8.5-10.1); CARBON DIOXIDE 28.8 mmol/L (21.0-32.0); CREATININE - SERUM 1.3 mg/dL (0.6-1.3); MAGNESIUM - SERUM 2.1 mg/dL (1.8-2.4); POTASSIUM - SERUM 3.8 mmol/L (3.5-5.1)
[2016-12-24 08:02] VITALS: BP 118/57
--- NOTE | 2016-12-24 12:32 | NUR ---
FAMILY AT BEDSIDE. NOT FOLLOWING DROPLET PRECAUTIONS-WHEN TOLD THAT THEY NEED TO BE IN DROPLET PRECAUTIONS STATED DR MARLEY SAID THAT THEY DID NOT HAVE TO. REINFORCED THAT STAFF WILL BE.
[2016-12-24 12:39] VITALS: BP 122/76
[2016-12-24 16:30] VITALS: BP 141/81
[2016-12-24 19:00] VITALS: BP 136/71
--- NOTE | 2016-12-24 19:44 | NUR ---
OT NOTE: PT COMPLETED BED MOB WITH MIN/MOD VERBAL CUES. PT COMPLETED BUE EXS FOR INCREASED AX TOLERANCE. THANK YOU, ABNER VICTOR/Priscilla
--- NOTE | 2016-12-24 20:00 | NUR ---
ASSESSMENT PER FLOWSHEET. IV PATENT RT PICC LINE WITH TPN INFUSING AT 40CC'S/HR. NS AT 10CC'S/HR. BOSWELL TO BEDSIDE DRAINAGE. PT ON FIRST STEP AIR BED.PT IN DROPLET ISOLATION. DRESSING TO PRESSURE SORE ON RT BUTTOCK C/D/I. MIDLINE ABDOMINAL INCISION WITH RHINA C/D/I. LEFT STUMP(BKA) INCISION WITH RHINA C/D/I. SCD ON RT LEG ONLY. LEFT ABDOMEN WITH OSTOMY BAG TO STOMA SITE. PT REMAINS CONFUSED.
--- NOTE | 2016-12-24 21:30 | NUR ---
MEDS GIVEN PER MAR.
[2016-12-25] VITALS: BP 141/70
--- NOTE | 2016-12-25 00:10 | NUR ---
RESTING QUIETLY DENIES NEEDS.
--- NOTE | 2016-12-25 03:30 | NUR ---
AWAKE WATCHING TV DENIES NEEDS MEDS GIVEN PER MAR.
[2016-12-25 04:00] VITALS: BP 132/73
--- NOTE | 2016-12-25 04:15 | NUR ---
TDFH=[id number] NO COVERAGE.
--- NOTE | 2016-12-25 05:45 | NUR ---
NO CHANGES IN ASSESSMENT.
[2016-12-25 05:47] LABS: BASOPHILS 0.2 % (0.0-2.0); EOSINOPHILS 2.5 % (0-7); HEMATOCRIT 27.1 % (42.0-54.0); HEMOGLOBIN 9.1 g/dL (13.5-17.5); IMMATURE GRANULOCYTES 0.3 % (0-5); LYMPHOCYTES 6.4 % (15-50); MCH 29.7 pg (26.0-34.0); MCHC 33.6 g/dL (31.0-37.0); MCV 88.6 fL (80.0-100.0); MEAN PLATELET VOLUME 10.2 fL (7.4-10.4); MONOCYTES 8.5 % (2-11); NEUTROPHILS 82.1 % (40-80); PLATELET COUNT 480 10x3/uL (130-400); RBC 3.06 10x6/uL (4.20-6.10); RDW 14.9 % (11.5-14.5)
[2016-12-25 06:20] LABS: ANION GAP 14.6 mmol/L (8-16); CALCIUM 9.2 mg/dL (8.5-10.1); CARBON DIOXIDE 25.7 mmol/L (21.0-32.0); CREATININE - SERUM 1.2 mg/dL (0.6-1.3); PHOSPHOROUS 4.6 mg/dL (2.5-4.9); POTASSIUM - SERUM 4.3 mmol/L (3.5-5.1)
--- NOTE | 2016-12-25 07:30 | NUR ---
SLEEPING QUIETLY AT PRESENT RESP EVEN AND UNLABORED WOUND VAC IN PLACE TO ABD BOSWELL CATH IN PLACE AND DRAINING YELLOW URINE.
[2016-12-25 08:31] VITALS: BP 133/79
--- NOTE | 2016-12-25 09:00 | NUR ---
OSTOMY BAG IN PLACE BROWN STOOL IN PLACE.
--- NOTE | 2016-12-25 10:50 | NUR ---
NUTRITION MONITORING & EVAL CHART REVIEWED. PT VISIT. TPN RENEWED. WITH HELP OF FAMILY AND TOGGLER PT TAKING SOME PO. 50 TO 75% MILKSHAKE WITH MEALS, JUICE, SODA, CANDY. WILL CONTINUE TO PROVIDE MILKSHAKES, HONOR FOOD PREFERENCES, ENCOURAGE PO INTAKE, FLUIDS. NOTE MARINOL ADDED TO MEDS. RD FOLLOWING
--- NOTE | 2016-12-25 11:32 | NUR ---
WOUND VAC DRESSING CHANGE WOUND TYPE: SURGICAL WOUND LOCATION: ABDOMEN WOUND AGE IN MONTHS: WEEKS DEBRIDEMENT ATTEMPTED IN LAST 10 DAYS? DATE/TYPE: SERIAL DEBRIDEMENTS REQUIRED? NO MEASUREMENT DATE: 12/25/16 1.8CM X 0.8CM X 1.1CM (IMPROVED) FULL THICKNESS? YES MUSCLE, TENDON OR BONE EXPOSED? NO UNDERMINING? NO TUNNELING/SINUS? NO APPEARANCE OF WOUND BED : RED/BEEFY EXUDATE (AMOUNT, COLOR, ODOR): SMALL/SANGUINOUS/NO ODOR FOAM TYPE: BLACK # OF PIECES USED: 1-WOUND BED 1-BRIDGE 1-TRAC PAD (3 TOTAL) EDUCATION: PT IS CONFUSED
--- NOTE | 2016-12-25 11:40 | NUR ---
WOUND CARE: NOTED HEALING STAGE 2 PRESSURE INJURY TO RIGHT BUTTOCK MEASURINCM X 1CM. WOUND BED IS PINK. SURROUNDING TISSUE IS BLANCHABLE. COVERED WITH MEPILEX BORDER DRESSING. WILL CONTINUE TO MONITOR.
[2016-12-25 11:46] VITALS: BP 128/74
--- NOTE | 2016-12-25 15:00 | NUR ---
REPOSITIONED AT PRESENT DENIES ANY NEEDS AT PRESENT.
[2016-12-25 16:17] VITALS: BP 130/72
--- NOTE | 2016-12-25 17:00 | NUR ---
AWAKE ALERT CONFUSED AT PRESENT N/C AT PRESENT.
--- NOTE | 2016-12-25 19:00 | NUR ---
STATUS REMAINS UNCHGD AT PRESENT.
--- NOTE | 2016-12-25 19:19 | NUR ---
OT NOTE: PT COMPLETED SIMPLE GROOMING WITH MOD V/CS FOR INCREASED SEQUENCING. PT COMPLETED BED MOB WITH SBA. PT COMPLETED BUE GROSS MOTOR AXS FOR INCREASED I WITH ADLS. THANK YOU, ABNER VICTOR/Priscilla
--- NOTE | 2016-12-25 20:00 | NUR ---
ASSESSMENT PER FLOWSHEET. IV INTACT PER PICC,LINE WOUND VAC IN PLACE TO ABDMEN. OSTOMY BAG IN [place]. BOSWELL TO BS DRAINAGE. LEFT BKA STUMP WITH RHINA IN PLACE. IV RT PICC LINE WITH TPN AT 40CC'S/HR AND NS AT 10CC'S/HR PT IN DROPLET ISOLATION.PT ON FIRST STEP AIR BED.
[2016-12-25 21:00] VITALS: BP 142/71
--- NOTE | 2016-12-25 21:30 | NUR ---
MEDS GIVEN PER MAR.
--- NOTE | 2016-12-26 | NUR ---
EYES CLOSED RESPIRATIONS WITH EASE AND UNLABORED.
[2016-12-26 02:30] VITALS: BP 112/62
--- NOTE | 2016-12-26 02:55 | NUR ---
RESTING QUIETLY DENIES NEEDS.
--- NOTE | 2016-12-26 04:24 | NUR ---
ALOT=[id number]. NO COVERAGE NEEDED
[2016-12-26 05:00] VITALS: BP 138/62
[2016-12-26 06:43] LABS: BASOPHILS 0.3 % (0.0-2.0); EOSINOPHILS 3.3 % (0-7); HEMATOCRIT 28.2 % (42.0-54.0); HEMOGLOBIN 9.1 g/dL (13.5-17.5); IMMATURE GRANULOCYTES 0.3 % (0-5); LYMPHOCYTES 7.3 % (15-50); MCH 28.6 pg (26.0-34.0); MCHC 32.3 g/dL (31.0-37.0); MCV 88.7 fL (80.0-100.0); MEAN PLATELET VOLUME 10.4 fL (7.4-10.4); MONOCYTES 9.7 % (2-11); NEUTROPHILS 79.1 % (40-80); PLATELET COUNT 420 10x3/uL (130-400); RBC 3.18 10x6/uL (4.20-6.10); RDW 14.7 % (11.5-14.5)
[2016-12-26 07:00] LABS: ANION GAP 14.1 mmol/L (8-16); CARBON DIOXIDE 25.9 mmol/L (21.0-32.0); CREATININE - SERUM 1.1 mg/dL (0.6-1.3); PHOSPHOROUS 4.2 mg/dL (2.5-4.9)
--- NOTE | 2016-12-26 08:00 | NUR ---
PT AWAKE ALERT TO SURROUNDINGS ORINETED TO NAME ONLY. BOSWELL PATENT TO DARK YELLOW URINE PER GRAVITY FLOW. TPN TO RAC PICC SEE FLOWSHEET FOR ASSESSMENT. SCD NOTED TO RIGHT LEG 32 RHINA INTACT TO LBKA
[2016-12-26 08:35] VITALS: BP 128/70
--- NOTE | 2016-12-26 10:54 | NUR ---
Visited with patient and his at the bedside about rehab. He qualifies and is an excellent candidate. Today he is awake and alert, but does make inappropriate comments at times. He is not sure he can, today participate in the required therapy of 3 hrs daily 5 days a week. Discussed the alternative with his rehab vs a SNF. She is adamant he cannot go to a SNF, and wants to discuss it with him. Rehab will revisit after she has talked with him. Yodit Buckley RN Clinical Liaison, Rehab
--- NOTE | 2016-12-26 12:27 | NUR ---
PT SEEN FOR ELASTIC ATTACHER ZIGZAG NOTE. STATLOCK CHANGED TO RIGHT THIGH DUE TO PATIENT PULLING IT APART. PICC LINE DRESSING CHANGED TO RIGHT FOREARM RELATED TO NON OCCULSIVE. STUMP INCISION NOTED CLEAN DRY AND INTACT TO LEFT STUMP WITH NO REDDNESS OR DRAINAGE NOTED. OSTOMY BAG WITH STOOL NOTED TO LLQ INTACT WITH NO LEAKAGE AROUND WAFER. CALL LIGHT PLACED IN REACH. NO FAMILY AT BEDSIDE AT PRESENT.
[2016-12-26 13:31] VITALS: BP 129/73
--- NOTE | 2016-12-26 14:21 | NUR ---
12/26/2016 14:11 DCP: Discharge Planning POC discussed with Dr. Carrillo. Will plan to transfer to inpatient rehab tomorrow if accepted. Phone message left for spouse to return call. CM will follow.
[2016-12-26 16:17] VITALS: BP 128/68
--- NOTE | 2016-12-26 17:19 | NUR ---
OT NOTE: PT COMPLETED ORAL HYGIENE WITH SET UP AND MIN VERBAL CUES. PT COMPLETED BUE AROM EXS FOR INCREASED I WITH ADLS. THANK YOU, ABNER VICTOR/Priscilla
[2016-12-26 20:00] VITALS: BP 139/80
[2016-12-27 06:42] LABS: BASOPHILS 0.2 % (0.0-2.0); EOSINOPHILS 3.7 % (0-7); HEMATOCRIT 25.3 % (42.0-54.0); HEMOGLOBIN 8.1 g/dL (13.5-17.5); IMMATURE GRANULOCYTES 0.3 % (0-5); LYMPHOCYTES 11.3 % (15-50); MCH 28.2 pg (26.0-34.0); MCV 88.2 fL (80.0-100.0); MEAN PLATELET VOLUME 10.5 fL (7.4-10.4); MONOCYTES 10.2 % (2-11); NEUTROPHILS 74.3 % (40-80); PLATELET COUNT 436 10x3/uL (130-400); RBC 2.87 10x6/uL (4.20-6.10); RDW 14.8 % (11.5-14.5); WBC 12.9 10x3/uL (4.8-10.8)
--- NOTE | 2016-12-27 07:00 | NUR ---
PT CONFUSED. WAS AWAKE UNTIL CRM SOLUTION ARCHITECT BUT SLEPT WELL A FEW HOURS. COMPLETE ASSESSMENT PER FLOW-SHEET. PT OCCASIONALLY CLAMPS WOUND VAC WITHOUT REALIZING IT. WILL CONTINUE TO MONITOR.
[2016-12-27 07:11] LABS: CALC OSMOLALITY 276 mosm/kg (275-300); CALCIUM 9.1 mg/dL (8.5-10.1); CARBON DIOXIDE 24.7 mmol/L (21.0-32.0); CHLORIDE - SERUM 102 mmol/L (98-107); GLUCOSE 85 mg/dL (74-106); MAGNESIUM - SERUM 1.9 mg/dL (1.8-2.4); SODIUM 137 mmol/L (136-145); UREA NITROGEN 24 mg/dL (7-18); eGFR NON AFRICAN AMERICAN 79 mL/min (90-120)
[2016-12-27 08:13] VITALS: BP 134/73
[2016-12-27] MEDS ORDERED: ZOSYN 3.3753.375 G1 IV (09:00)
[2016-12-27] MEDS ORDERED: MARINOL2.5 MG PO (09:01)
[2016-12-27] MEDS ORDERED: LOVENOX40 MG/0.4 SC (09:01)
[2016-12-27] MEDS ORDERED: REMERON15 MG PO (09:01)
[2016-12-27] MEDS ORDERED: FLORAJEN3 CAPS460 MG PO (09:02)
[2016-12-27] MEDS ORDERED: MIRALAX17 GM PO (09:02)
[2016-12-27] MEDS ORDERED: PULMICORT0.5 MG/21 UPD (09:02)
--- NOTE | 2016-12-27 09:40 | NUR ---
WOUND VAC DRESSING CHANGE WOUND TYPE: SURGICAL WOUND LOCATION: ABDOMEN WOUND AGE IN MONTHS: WEEKS DEBRIDEMENT ATTEMPTED IN LAST 10 DAYS? DATE/TYPE: SERIAL DEBRIDEMENTS REQUIRED? NO - HEALING WELL MEASUREMENT DATE: 12/27/16 1.7CM X 0.5CM X 0.8CM FULL THICKNESS? YES MUSCLE, TENDON OR BONE EXPOSED? NO UNDERMINING? NO TUNNELING/SINUS? NO APPEARANCE OF WOUND BED : RED/BEEFY EXUDATE (AMOUNT, COLOR, ODOR): SMALL TO NONE FOAM TYPE:BLACK # OF PIECES USED:1TO WOUND BED+1 FOR TRAC PAD = 2 TOTAL EDUCATION: PT IS CONFUSED
--- NOTE | 2016-12-27 10:06 | NUR ---
Nutrition Follow Up: Chart reviewed. Noted pt is d/c to Rehab today. Per MD note TPN is to continue. Pt is eating 17% meal avg [facility]. Meds and labs noted. TPN orders renewed. RD will continue to monitor pt progress throughout hospital/rehab stay.
--- NOTE | 2016-12-27 10:28 | NUR ---
PATIENT IS DISCHARGING TO IP REHAB TODAY-FAMILY AWARE
--- NOTE | 2016-12-27 11:14 | NUR ---
AWAKE AND ALERT. ORIENTED X3. NO C/O AT THIS TIME. COLOSTOMY PATENT WITH SOFT LIGHT BROWN STOOL, WOUND VAC IN PLACE TO ABDOMEN WELL. INCISION TO LEFT BKA CLEAN AND DRY WITH CLIPS INTACT. RIGHT PICC PATENT WITHOUT REDNESS AT INSERTION SITE. DENIES NEEDS. BOSWELL PATENT WITH CLEAR DARK YELLOW URINE.
[2016-12-27 12:26] VITALS: BP 127/70
[2016-12-27] MEDS ORDERED: PROCALAMINE I1000 ML IV (12:38)
--- NOTE | 2016-12-27 13:33 | OP ---
PATIENT NAME: JANE YORK MEDICAL RECORD: [id number] :46 LOCATION:D[id number] ADMISSION DATE:11/25/16 SURGEON: JIM CORREA MD DATE OF OPERATION: 12/06/2016 PREOPERATIVE DIAGNOSES: 1. Ischemic left lower extremity. 2. Chronic peripheral vascular disease. 3. Respiratory failure on the ventilator. 4. History of colon cancer. 5. Chronic kidney disease. 6. Sepsis. 7. Abdominal peritonitis. POSTOPERATIVE DIAGNOSES: 1. Ischemic left lower extremity. 2. Chronic peripheral vascular disease. 3. Respiratory failure on the ventilator. 4. History of colon cancer. 5. Chronic kidney disease. 6. Sepsis. 7. Abdominal peritonitis. PROCEDURE: Left above-knee amputation. SURGEON: Jim Correa MD REPORT OF PROCEDURE: The patient's left lower extremity was prepped and draped in sterile fashion. A skin incision was made around the patient's left lower extremity just above the patient's knee. Electrocautery was used to dissect through the subcutaneous tissues. Once we started through the muscular tissue, we took our time with the electrocautery and eventually came down to the patient's femur. The femur was transected in the distal third using an oscillating saw. We filed down the edges and assured there was no sign of any bleeding. Posterior to the vessels, we found the patient's femoral artery and femoral vein. These were ligated with 2-0 silk ties and the artery was tied off again with 2-0 Vicryl stick tie. The patient's femoral nerves were found. The knees were highly ligated with a 2-0 silk tie. We came through the posterior aspect of the gastrocnemius. At this point, we had the leg completely freed up. This was sent off for permanent specimen. We then irrigated out the wound with peroxide and saline solution. We assured there was no sign of any active bleeding. A half inch Jimmy was then placed in the wound. We then reapproximated the fascial edges anteriorly to posteriorly using multiple interrupted 2-0 Vicryls. The subcutaneous space was reapproximated with interrupted 3-0 Vicryls and the skin was closed with skin stapler. We then treated the wound with Betadine ointment, Adaptic, Kerlix and an Mina wrap. COMPLICATIONS: None. CONDITION: Fair. ANESTHESIA: General endotracheal. BLOOD LOSS: 50 mL. OPERATIVE REPORT [id number] JANE YORK TRANSINT:[id number] Voice Confirmation ID: [id number] DOCUMENT ID: [id number] JIM CORREA MD at 1333 CC: VIVIEN ORLANDO M.D., PEGGY DELANEY MD and RONNIE MARLEY [id number] DICTATION DATE: 12/06/16 1308 STUDENT SPECIALIST: 12/06/16 1831 ADM IN [place] [id number] [place] [id number]
[2016-12-27 16:02] VITALS: BP 130/74
--- NOTE | 2016-12-27 18:48 | NUR ---
PT REMAINS ON DROPLET ISOLATION. PLANS TO DISCHARGE TO REHAB. REPORT CALLED TO REHAB.
== END 2016-12-27 20:00 | DRG 329 ==
LOC: D.LAB 09:54 → EDSTATUS 11:30 → D.CT 12:00 → D.SDCHOLD 11-25 05:57 → D.MS 11-25 05:57 → D.ICU 11-25 05:57 → D.SDCHOLD 11-25 07:30 → D.PAN 11-25 07:30 → D.OPS 11-25 07:30 → D.MS 11-25 09:14 → D.SDCHOLD 11-25 11:30 → D.ICU 12-03 17:19 → D.MS 12-17 16:24
PROVIDERS: Anesthesiology; General Practice; Internal Medicine Pulmonary Disease; ADMIT Surgery
PROC: 0DSP0ZZ Reposition Rectum, Open Approach (ICD-10-PCS; principal; 2016-11-25 07:30)
PROC: 0DNW4ZZ Release Peritoneum, Percutaneous Endoscopic Approach (ICD-10-PCS; 2016-11-25 07:30)
PROC: 0DNL4ZZ Release Transverse Colon, Percutaneous Endoscopic Approach (ICD-10-PCS; 2016-11-25 07:30)
PROC: 0DTJ4ZZ Resection of Appendix, Percutaneous Endoscopic Approach (ICD-10-PCS; 2016-11-25 07:30)
PROC: 0WUF0JZ Supplement Abdominal Wall with Synthetic Substitute, Open Approach (ICD-10-PCS; 2016-12-03)
PROC: 0W9J00Z Drainage of Pelvic Cavity with Drainage Device, Open Approach (ICD-10-PCS; 2016-12-03)
PROC: 0DB80ZZ Excision of Small Intestine, Open Approach (ICD-10-PCS; 2016-12-03)
PROC: 0D1B0Z4 Bypass Ileum to Cutaneous, Open Approach (ICD-10-PCS; 2016-12-03)
PROC: 0DCW0ZZ Extirpation of Matter from Peritoneum, Open Approach (ICD-10-PCS; 2016-12-04)
PROC: 0WJG4ZZ Inspection of Peritoneal Cavity, Percutaneous Endoscopic Approach (ICD-10-PCS; 2016-12-04)
PROC: 3E05317 Introduction of Other Thrombolytic into Peripheral Artery, Percutaneous Approach (ICD-10-PCS; 2016-12-04)
PROC: 0Y6D0Z3 Detachment at Left Upper Leg, Low, Open Approach (ICD-10-PCS; 2016-12-04)
PROC: 0BH17EZ Insertion of Endotracheal Airway into Trachea, Via Natural or Artificial Opening (ICD-10-PCS; 2016-12-04)
PROC: 5A1955Z Respiratory Ventilation, Greater than 96 Consecutive Hours (ICD-10-PCS; 2016-12-04)
PROC: B41G1ZZ Fluoroscopy of Left Lower Extremity Arteries using Low Osmolar Contrast (ICD-10-PCS; 2016-12-04)
PROC: 047K3ZZ Dilation of Right Femoral Artery, Percutaneous Approach (ICD-10-PCS; 2016-12-05)
PROC: 047M3ZZ Dilation of Right Popliteal Artery, Percutaneous Approach (ICD-10-PCS; 2016-12-05)
PROC: 047T3ZZ Dilation of Right Peroneal Artery, Percutaneous Approach (ICD-10-PCS; 2016-12-05)
PROC: 04CK3ZZ Extirpation of Matter from Right Femoral Artery, Percutaneous Approach (ICD-10-PCS; 2016-12-05)
PROC: 04CM3ZZ Extirpation of Matter from Right Popliteal Artery, Percutaneous Approach (ICD-10-PCS; 2016-12-05)
PROC: 04CT3ZZ Extirpation of Matter from Right Peroneal Artery, Percutaneous Approach (ICD-10-PCS; 2016-12-05)
PROC: 02HV33Z Insertion of Infusion Device into Superior Vena Cava, Percutaneous Approach (ICD-10-PCS; 2016-12-20)
PROC: B548ZZA Ultrasonography of Superior Vena Cava, Guidance (ICD-10-PCS; 2016-12-20)
DX: Z43.3 Encounter for attention to colostomy (principal); K65.1 Peritoneal abscess; J96.90 Respiratory failure, unspecified, unspecified whether with hypoxia or hypercapnia; A41.9 Sepsis, unspecified organism; J15.5 Pneumonia due to Escherichia coli; D62 Acute posthemorrhagic anemia; K91.3 Postprocedural intestinal obstruction; T81.4XXA Infection following a procedure, initial encounter; J98.11 Atelectasis; I74.8 Embolism and thrombosis of other arteries; N17.9 Acute kidney failure, unspecified; T82.818A Embolism due to vascular prosthetic devices, implants and grafts, initial encounter; K91.89 Other postprocedural complications and disorders of digestive system; E87.4 Mixed disorder of acid-base balance; T81.590A Other complications of foreign body accidentally left in body following surgical operation, initial encounter; K66.0 Peritoneal adhesions (postprocedural) (postinfection); K43.2 Incisional hernia without obstruction or gangrene; Y83.9 Surgical procedure, unspecified as the cause of abnormal reaction of the patient, or of later complication, without mention of misadventure at the time of the procedure; I12.9 Hypertensive chronic kidney disease with stage 1 through stage 4 chronic kidney disease, or unspecified chronic kidney disease; N18.9 Chronic kidney disease, unspecified; J44.9 Chronic obstructive pulmonary disease, unspecified; E88.09 Other disorders of plasma-protein metabolism, not elsewhere classified; F17.200 Nicotine dependence, unspecified, uncomplicated

== ENCOUNTER 2016-12-27 19:56 | Inpatient (IN) | payer MEDICARE, OTHER ==
[~2016-12-27] VITALS: Ht 175.3 cm; Wt 84.8 kg
--- NOTE | 2016-12-27 19:15 | NUR ---
PT ARRIVED TO UNIT VIA STRETCHER ACCOMPANIED BY HOSPITAL STAFF AND FAMILY. PT HAS A PICC LINE TO UPPER RIGHT ARM, TRIPLE LUMEN. ONE LUMEN RUNNING NS KVO AND ONE LUMEN RUNNING TPN AT 40ML/HR. PT HAS A WOUND VAC TO RT LOWER ABD, NO DRAINAGE NOTED, DRESSING CDI. PT HAS TWO PRESSURE DRESSINGS, ONE TO LEFT CHEST AND ONE TO RT UPPER ABD, BOTH CDI. PT HAS AN INCISION TO LEFT UPPER ABD, WELL APPROXIMATED, NO REDNESS OR SWELLING NOTED. PT HAS A LEFT AKA WITH RHINA, NO REDNESS OR SWELLING NOTED AND OPEN TO AIR. PT ALSO HAS A BOSWELL CATHETER VOIDING CLEAR, YELLOW URINE. PT IS ON DROPLET ISOLATION FOR ECOLI IN SPUTUM. PT IS CONFUSED TO PLACE AND SITUATION. PT AND FAMILY DENY NEEDS AT THIS TIME. BED LOW. CL IN REACH.
[~2016-12-27 19:56] MED LIST changes: +FLORAJEN3 CAPS460 MG PO; +LOVENOX40 MG/0.4 SC; +MARINOL2.5 MG PO; +PRAVACHOL40 MG PO; +PROCALAMINE I1000 ML IV; +PULMICORT0.5 MG/21 UPD; +REMERON15 MG PO
[2016-12-27 20:07] VITALS: BP 128/68; BMI 27.7
--- NOTE | 2016-12-27 22:15 | NUR ---
PT TOOK HS MEDS WITHOUT DIFFICULTY. PT HAD DETACHED COLOSTOMY BAG. REATTACHED AND CHANGED PT SHEETS AND CLEANED PT. WCTM. BED LOW. CL IN REACH.
--- NOTE | 2016-12-28 01:45 | NUR ---
PT DETACHED COLOSTOMY BAG AGAIN. CLEANED PT AND REATTACHED. WCTM. BED LOW. CL IN REACH.
--- NOTE | 2016-12-28 02:15 | NUR ---
PT RESTING, EYES CLOSED. BED LOW. CL IN REACH.
--- NOTE | 2016-12-28 03:15 | NUR ---
PT HAD DETACHED STAT LOCK. APPLIED NEW ONE. WCTM. BED LOW. CLIN REACH.
[2016-12-28 07:00] VITALS: BP 127/55
[2016-12-28 07:22] LABS: BASOPHILS 0.4 % (0.0-2.0); EOSINOPHILS 4.2 % (0-7); HEMATOCRIT 26.9 % (42.0-54.0); HEMOGLOBIN 8.6 g/dL (13.5-17.5); IMMATURE GRANULOCYTES 0.3 % (0-5); MCH 28.4 pg (26.0-34.0); MCV 88.8 fL (80.0-100.0); MEAN PLATELET VOLUME 10.2 fL (7.4-10.4); MONOCYTES 7.5 % (2-11); NEUTROPHILS 76.6 % (40-80); PLATELET COUNT 424 10x3/uL (130-400); RBC 3.03 10x6/uL (4.20-6.10); RDW 14.6 % (11.5-14.5); WBC 11.3 10x3/uL (4.8-10.8)
--- NOTE | 2016-12-28 08:00 | NUR ---
SET UP FOR BREAKFAST PROVIDED.ALL EQUIPMENT IN WORKING ORDER.CL IN REACH.
[2016-12-28 09:41] VITALS: Ht 175.3 cm; Wt 84.8 kg
--- NOTE | 2016-12-28 12:00 | NUR ---
HERE VISITING.WORKING WITH OT.
--- NOTE | 2016-12-28 16:00 | NUR ---
RESTING QUIETLY.HAD SOME EPISODE TODAY OF SEEING HIS GRANDSON RUNNING AND PLAYING IN HIS ROOM;BUT WAS NOT THERE AND YOUNGEST ONE IS A TEENAGER STATED BY HIS .
--- NOTE | 2016-12-28 17:30 | NUR ---
INCONTINENT OF PINKISH MUCOUS STOOL NOTED.CLEANED AND POSITIONED UP IN BED. ASSISTING WITH MEAL.MORE INDEPENENT WITH EVENING MEAL.
--- NOTE | 2016-12-28 19:10 | NUR ---
PT IN BED WITH EYES CLOSED EASILY AROUSED UPON ENTRY. BENT RIGHT ARM OCCLUDING IV PICC LINE SOUNDING ALARM. ADJUSTED LINES AND PT WITH OUT COMPLAINTS OR SIGNS OF DISTRESS. RESTING UP EXIT. CALL LIGHT IN REACH. WILL CONTINUE TO OBSERVE.
[2016-12-28 22:49] VITALS: BP 118/70
--- NOTE | 2016-12-28 23:16 | NUR ---
PT IN BED WITH EYES CLOSED AND CHEST RISING. NO SIGN/SYMPTOMS OF DISTRESS NOTED. CALL LIGHT IN REACH. WILL CONTINUE TO OBSERVE.
--- NOTE | 2016-12-29 02:41 | NUR ---
PT IN BED WITH EYES CLOSED AND CHEST RISING. HAS REMOVED GOWN AND COVERING AND CONTINUES TO REMOVE AFTER REPLACING. NO SIGN/SYMPTOMS OF DISTRESS NOTED. CALL LIGHT IN REACH. WILL CONTINUE TO OBSERVE.
--- NOTE | 2016-12-29 06:20 | NUR ---
PT IN BED WITH EYES CLOSED AT THIS TIME. REFUSED PROTONIX. NO OTHER CONCERNS MADE KNOWN. CALL LIGHT IN REACH.
[2016-12-29 08:00] VITALS: BP 131/69
--- NOTE | 2016-12-29 08:00 | NUR ---
SHIFT ASSMT COMPLETED,REMAINS CONFUSED;ORIENTED TO SELF ONLY.IV SITE RUE PICC LINE PATENT.COLOSTOMY APPLIANCE INTACT AND PULLING AT IT.PICKS AT INCISION LUQ AT TIMES AND OTHER LINES.RE-ORIENTED FREQUENTLY.ON FIRST STEP AND INFLATED.WND VAC WORKING ORDERED.
--- NOTE | 2016-12-29 12:00 | NUR ---
LARGE CANDY BAR GIVEN TO PT PER .FEW BITES OF LUNCH TAKEN AND FINISHED.CL IN REACH.
--- NOTE | 2016-12-29 16:00 | NUR ---
CONTINUES TO PULL LINES.NOTIFIED TO COME AND SIT DUE TO CONTINUES TO PULL AT LINES.WND VAC PULLED OFF AND REPLACED WITH NEW TUBING.WAS PICKING AT INCISION TO LUQ BUT REMAINS INTACT. IMMEDIATELY CAME UP AND SIT WITH HIM.PT IS CALMER WHEN IS PRESENT.
--- NOTE | 2016-12-29 18:00 | NUR ---
CLEANED FROM HAVING A MUCOUS LIGHT HERRERA CLOUDY LOOKING STOOL FROM RECTUM;ODOR MOTED.PT HAS REMAINED CONFUSED EVEN AFTER RE-ORIENTATION NUMEROUS TIMES THROUGHOUT DAY.WILL CONTINUE TO MONITOR. LEFT.CL IN REACH.ALARM ON.RESTING AT THIS TIME.
--- NOTE | 2016-12-29 22:45 | NUR ---
PT RECEIVED IN BED WITH EYES OPEN WATCHING TV. FREQUENTLY GETTING IV LINES TWISTED AND CAUSING OCCULUSION. ALSO REMOVING GOWN AND BEDDING AND LYING NAKED. COVERED WITH BLANKET AND REMOVES SHORTLY AFTER APPLYING. PT CONFUSED TO PLACE AND SITUATIONS. STATES THAT HE WAS IN [facility] [place] AND THAT HE WAS IN A INSTITUTION. NO OTHER CONCERNS NOTED AT THIS TIME. CALL LIGHT IN REACH.
[2016-12-29 23:13] VITALS: BP 148/67
--- NOTE | 2016-12-30 00:56 | NUR ---
PT PULLING ON IV, WOUND VAC, AND CATHETER LINES. PULLING WOUND VAC AND CATHETER LINE TO MOUTH AND CHEWING ON IT ATTEMPT TO REDIRECT AND WILL STOP BUT WILL CONTINUE LATER. CENTRAL DRESSING LINE NOTED TO BE LOOSE AND WAS REMOVED AND NEW DRESSING PLACE USING STERILE TECHNIQUE. SOME OLD DRIED BLOOD NOTED WITH AREA CLEANSED WITH NEW BIO PATCH APPLIED. CONTINUES TO REMOVE GOWN AND OR BLANKETS. CALL LIGHT IN REACH. WILL CONTINUE TO OBSERVE.
--- NOTE | 2016-12-30 05:29 | NUR ---
PT IN BED WATCHIN TV. NO CONCERNS NOTED. CALM AND RELAXED AT THIS TIME. CALL LIGHT IN REACH.
[2016-12-30 06:17] LABS: BASOPHILS 0.6 % (0.0-2.0); EOSINOPHILS 5.1 % (0-7); HEMATOCRIT 26.4 % (42.0-54.0); HEMOGLOBIN 8.5 g/dL (13.5-17.5); IMMATURE GRANULOCYTES 0.4 % (0-5); LYMPHOCYTES 13.2 % (15-50); MCH 28.3 pg (26.0-34.0); MCHC 32.2 g/dL (31.0-37.0); MEAN PLATELET VOLUME 10.3 fL (7.4-10.4); MONOCYTES 11.3 % (2-11); NEUTROPHILS 69.4 % (40-80); PLATELET COUNT 406 10x3/uL (130-400); RDW 14.5 % (11.5-14.5); WBC 10.1 10x3/uL (4.8-10.8)
[2016-12-30 06:57] LABS: ALBUMIN 2.4 g/dL (3.4-5.0); ANION GAP 15.6 mmol/L (8-16); BILIRUBIN - TOTAL 0.64 mg/dL (0.2-1.3); CALCIUM 9.2 mg/dL (8.5-10.1); CARBON DIOXIDE 23.1 mmol/L (21.0-32.0); CREATININE - SERUM 1.1 mg/dL (0.6-1.3); POTASSIUM - SERUM 3.7 mmol/L (3.5-5.1); PROTEIN - SERUM 8.2 g/dL (6.4-8.2)
--- NOTE | 2016-12-30 07:26 | RHP ---
PATIENT: JANE YORK MEDICAL RECORD: [id number] ACCOUNT: [id number] LOCATION:[facility]1115 : 46 ADMISSION DATE: 12/27/16 REHABILITATION HISTORY AND PHYSICAL EXAMINATION POST ADMISSION PHYSICIAN EXAMINATION Post-admission Physical Examination and History and Physical DATE OF ADMISSION TO THE REHAB: 12/27/2016 ADMITTING DIAGNOSES: Ischemic left lower extremity and peripheral vascular disease. HISTORY OF PRESENT ILLNESS: The patient admitted to the inpatient rehab, status post left dpvfs-[id number]-vclx amputation due to ischemic left lower extremity with failed revascularization. He is a 66-year-old gentleman with a history of hypertension, peripheral arterial disease with renal stents in the past, colon cancer, status post colostomy, and also, a history of COPD. He has been smoking 2 packs a day for years. Also, remote aspiration pneumonia in the past, admitted for reversal colostomy in the past, complicated by anastomotic leak with stool contamination requiring reexploration and washout. The patient has had a left lower extremity pain and cool extremities and thrombus involving the femoral and popliteal arteries and was started on heparin for an attempt to revascularize this, but failed. He has had an extended hospital stay since November 25 with medical complications including multiple surgeries, respiratory failure requiring mechanical ventilation, now on epkxv-feq-mwxl amputation, colostomy again, wound VAC to open abdominal surgical wound, and continues to be on TPN and has speech therapy following with dietary also following for diet advancements and tolerance. He has had some confusion, but seems to be clearing up. Per family, he is completely independent ADLs and mobility prior hospitalizations. He is currently moderate to max assist. He is unable to ambulate due to recent atzgm-nxj-frzm amputation. He and his family are planning for him to return home and live independently if possible with adaptive equipment. COMORBIDITIES: Include chronic kidney disease, fever, abdominal abscess, foreign body in abdomen removed, history of colon cancer, peripheral arterial disease, leukocytosis, COPD, encephalopathy, acute anemia following surgery and status post colostomy takedown with anastomotic leak repair. PAST MEDICAL HISTORY: Significant for hypertension, peripheral arterial disease, colon cancer with colostomy and reversal, COPD, and aspiration pneumonia. PAST SURGICAL HISTORY: Includes chest tube placement. He has had colon resection, colostomy and now above-knee amputation. ALLERGIES: No known drug allergies. CURRENT MEDICATIONS: Include amino acids daily. He is on Bystolic 5 mg daily, Floranex daily, Protonix 40 mg daily, Lovenox 40 mg subQ daily, and Plavix 75 mg daily. He is on an electrolyte protocol at this time to replace his electrolytes. Pravachol 40 mg q.h.s., polyethylene glycol 17 grams in 8 ounce of water daily, Zosyn 3.375 grams IV q.6 hours, Remeron 15 mg q.h.s. as needed, Ativan as needed, Marinol 2.5 mg t.i.d., and Pulmicort 0.5 mg b.i.d. HISTORY AND PHYSICAL [id number] JANE YORK HABITS: Does have a history of tobacco use. FAMILY HISTORY: Noncontributory. SOCIAL HISTORY: The patient hopes to return back home with family and get back to his prior level of functioning. REVIEW OF SYSTEMS: GENERAL: He does complain of weakness and fatigue. HEENT: Denies cold, cough, or congestion. CARDIOVASCULAR: Denies chest pain. PHYSICAL EXAMINATION: VITAL SIGNS: Stable, afebrile. GENERAL: Elderly gentleman, in no acute distress, alert upon exam. HEENT: Normocephalic and atraumatic. Mucosa moist. NECK: Supple. No lymphadenopathy. LUNGS: Clear at this time. HEART: Regular rate and rhythm. ABDOMEN: Benign. EXTREMITIES: Consistent with a left dvzji-swd-kviw amputation. NEUROLOGIC: Seems intact. LABORATORY DATA: His white count 11.3, H&H 8.6 and 26.9 and platelet count was noted to be 424. His glucose is 115. ASSESSMENT: This is a 66-year-old gentleman admitted to the rehab with a working diagnosis of status post above-the -knee amputation secondary to peripheral vascular disease and acute blood loss anemia. The patient has potential to make improvement. We instituted the following multidisciplinary therapies including to, but not limited to physical, occupational, respiratory, speech, nutritional services, prosthetics and orthotics. Given his complex condition and risk for more complications, rehabilitation services cannot be provided at a low level of care such as shelter. PLAN: 1. Admit to [facility] rehab for intensive inpatient therapy to include the following disciplines: A. Physical therapy to improve gait, all transfer skills and bed mobility to a modified independent level. B. Occupational therapy to improve activities of daily living to a modified independent level. C. Case management to assist with discharge planning and placement options. D. Nutrition to assist with nutritional needs. E. Rehabilitation nursing to assist and monitor the underlying medical conditions and to assist with any type of bowel or bladder management. 2. The patient's current medications and medical care will be continued. 3. We will go ahead and watch his blood counts closely and transfuse as needed. 4. We will go ahead and discuss during care team staff meeting this week. TRANSINT:[id number] Voice Confirmation ID: [id number] DOCUMENT ID: [id number] HISTORY AND PHYSICAL [id number] JANE YORK SCOTT MD at 0726 CC: [id number] DICTATION DATE: 12/29/16 1211 FIXED ASSETS ACCOUNTANT: 12/29/16 1637 ADM IN [facility] [address] [place] [address]
--- NOTE | 2016-12-30 07:26 | NUR ---
RESTING QUIETLY IN BED CALL LIGHT IN REACH
[2016-12-30 09:32] VITALS: BP 125/73
--- NOTE | 2016-12-30 12:27 | NUR ---
NUTRITION MONITORING & EVAL CHART REVIEWED, PT VISIT. RECEIVING PPN @ 50 CC/HR, MARINOL. REG MECH SOFT DIET WITH CONTINUED POOR PO INTAKE PER SPOUSE REPORT. PT MAY BENEFIT FROM DC PPN DEXTROSE MAY AFFECT PT APPETITE. RD FOLLOWING
--- NOTE | 2016-12-30 13:16 | NUR ---
WOUND CARE CONSULT: WOUND VAC THERAPY WAS D/C'D AFTER WOUND ASSESSMENT TODAY. WOUND HAS NEARLY CLOSED AND MEASURES 1CM X 0.3CM X 0.7CM. WOUND BED IS RED/BEEFY AND WITHOUT ODOR. LOOSELY PACKED WITH 1/4" PLAIN PACKING AND COVERED WITH BORDERED GAUZE. WILL CONTINUE TO MONITOR.
--- NOTE | 2016-12-30 14:59 | NUR ---
IN BED IN ROOM WATCHING TV CALL LIGHT IN REACH
--- NOTE | 2016-12-30 18:12 | NUR ---
EATING SUPPER IN ROOM SITTING WITH PT
[2016-12-30 19:00] VITALS: BP 129/77
--- NOTE | 2016-12-30 20:00 | NUR ---
PT IS RESTING IN BED WITH EYES OPEN. WATCHING TV. PT IS ALERT TO SELF. DIFFICULTY TO DETERMINE ORIENTATION, PT IS NOT VERY VERBAL. RESTING ON A 1ST STEP MATTRESS. COLOSTOMY NOTED WITH A SMALL AMOUNT OF SOFT BROWN STOOL IN IT. DRESSING INTACT TO AN OLD OSTOMY SITE. RIGHT ARM PICC LINE INFUSING WITHOUT DIFFICULTY. PT IS ON DROPLETT PRECAUTIONS. SR'S ARE UP X 3 IN BED. CALL LIGHT AND BEDSIDE TABLE ARE WITHIN EASY REACH.
--- NOTE | 2016-12-30 22:00 | NUR ---
PT IS RESTING IN BED WATCHING TV. NO ACUTE DISTRESS NOTED. PT DENIES ANY NEEDS AT THIS TIME.
--- NOTE | 2016-12-31 00:45 | NUR ---
RESTING IN BED, SLIGHTLY TURNED TO LEFT. RESTING QUIETLY TONIGHT. WAS MUCH MORE RESTLESS THE PAST 2 NIGHTS.
--- NOTE | 2016-12-31 01:32 | NUR ---
RESTING IN BED WITH EYES CLOSED.
--- NOTE | 2016-12-31 05:54 | NUR ---
PT RESTING IN BED WITH EYES CLOSED. AWAKENS WHEN SPOKEN TO. PT DENIES NEEDS. PT NOTED WITH RIGHT LEG HANGING OFF THE BED. HE BECAME ANGRY WHEN I PLACED IT BACK ON THE BED. PILLOW USED TO TRY AND KEEP IT ON THE BED PROPERLY.
--- NOTE | 2016-12-31 08:08 | NUR ---
PATIENT REMAINS IN DROPLET ISOLATION. VERY CONFUSED. HELPED UP IN BED FOR BREAKFAST MOD ASST OF TWO. CALL LIGHT WITHIN REACH.
[2016-12-31 08:18] VITALS: BP 145/89
--- NOTE | 2016-12-31 10:00 | NUR ---
PATIENT IN REHAB ROOM. WORKING WITH OCCUPATIONAL THERAPIST. DENIES ANY PAIN/DISC. PATIENT HAS TO BE REMINDED TO KEEP ON GLOVES AND MASK WHILE IN REHAB ROOM DUE TO ISOLATION PRECAUSIONS.
--- NOTE | 2016-12-31 13:51 | NUR ---
PATIENT GIVEN A BED BATH MAX ASST OF TWO.
--- NOTE | 2016-12-31 14:53 | NUR ---
UP AT NURSING STATION. WANTS TO TAKE PATIENT HOME. Judy MORILLO TALKING WITH .
--- NOTE | 2016-12-31 16:06 | NUR ---
DR. Moris JOHNSON TO COME IN AT 8:00 TOMORROW MORNING TO TALK TO IN REGARDS TO PATIENT BEING D/C TO HOME
--- NOTE | 2016-12-31 18:25 | NUR ---
RESTING QUIETLY IN BED
[2016-12-31 19:35] VITALS: BP 124/67
--- NOTE | 2016-12-31 19:39 | NUR ---
PT RECEIVING RESPIRATORY THERAPY TREATMENT, EYES CLOSED, RESPIRATIONS REGULAR, NO S/S OF ACUTE DISTRESS, CLINIMEX SOLUTION INFUSING.
--- NOTE | 2016-12-31 20:00 | NUR ---
PT. IN BED WITH HOB UP FOR COMFORT AND IS WATCHING TV. PICC LINE TO RUE IS INFUSING IV'S PER MD'S ORDERS WITHOUT ANY ALARMS VIA PUMP. PT. DENIES ANY NEEDS AT THIS TIME AND HIS BOSWELL CATHETER IS TO BSD WITHOUT PROBLEMS. CALL LIGHT WITHIN REACH.
--- NOTE | 2016-12-31 22:05 | NUR ---
PT. IN BED WITH HOB UP FOR COMFORT AND CONTINUES TO WATCH TV AND HAS NO VOICED NEEDS AT THIS TIME. CALL LIGHT REMAINS WITHIN REACH. IV'S INFUSING VIA PUMP WITHOUT ANY ALARMS AND BOSWELL TO BSD WITHOUT PROBLEMS.
--- NOTE | 2017-01-01 00:04 | NUR ---
PT. IN BED ON FIRST STEP AIR MATTRESS. HOB UP FOR COMFORT. EYES CLOSED AND RESP. EVEN. IV'S INFUSING VIA RUE PICC LINE WITHOUT ANY ALARMS. BOSWELL TO BSD WITHOUT ANY PROBLEMS. CALL LIGHT WITHIN REACH.
--- NOTE | 2017-01-01 04:20 | NUR ---
PT. IN BED ON FIRST STEP MATTRESS. WHILE CONNECTING NEW ANTIBIOTIC PT. AWAKENS EASILY. PT. DENIES ANY NEEDS AND HAS NO COMPLAINTS AT THIS TIME. CALL LIGHT IS WITHIN REACH. BOSWELL TO BSD WITHOUT ANY PROBLEMS.
--- NOTE | 2017-01-01 07:52 | NUR ---
HAS PULLED OFF COLOSTOMY APPLIANCE,REMAINS CONFUSED,PULLS AND PICKS WITH TUBES.INSTRUCTED BY HIS NURSE TO NOT PICK.CL IN REACH AND CLEANED.
[2017-01-01 08:18] VITALS: BP 111/69
--- NOTE | 2017-01-01 10:02 | NUR ---
PATIENT REMAINS IN DROPLET ISOLATION. REMAINS CONFUSED. REMAINED TO USE CALL LIGHT FOR NEEDS. RESTING IN BED BEFORE THERAPY
[2017-01-01 10:48] LABS: BASOPHILS 0.2 % (0.0-2.0); EOSINOPHILS 2.3 % (0-7); HEMATOCRIT 27.7 % (42.0-54.0); HEMOGLOBIN 8.9 g/dL (13.5-17.5); IMMATURE GRANULOCYTES 0.4 % (0-5); LYMPHOCYTES 10.8 % (15-50); MCH 28.7 pg (26.0-34.0); MCHC 32.1 g/dL (31.0-37.0); MCV 89.4 fL (80.0-100.0); MONOCYTES 9.7 % (2-11); NEUTROPHILS 76.6 % (40-80); PLATELET COUNT 345 10x3/uL (130-400); RDW 14.9 % (11.5-14.5); WBC 9.5 10x3/uL (4.8-10.8)
[2017-01-01 10:56] LABS: ANION GAP 14.1 mmol/L (8-16); CALCIUM 9.3 mg/dL (8.5-10.1); CARBON DIOXIDE 24.7 mmol/L (21.0-32.0); CREATININE - SERUM 1.1 mg/dL (0.6-1.3); POTASSIUM - SERUM 3.8 mmol/L (3.5-5.1)
--- NOTE | 2017-01-01 11:30 | NUR ---
PATIENT IN REHAB ROOM. WORKING WITH PHYSICAL THERAPIST. DENIES ANY PAIN/DISC AT THIS TIME. DROPLET ISOLATION FOLLOWED IN REHAB ROOM.
--- NOTE | 2017-01-01 13:03 | NUR ---
Nutrition Follow Up: Chart reviewed and pt discussed in rehab staffing. Edmundo with MD to d/c PPN. Spoke with nursing who stated that they will do this. Noted wound vac d/c. I>O. +BM 12/29/16 (noted pt with colostomy). Wt loss 1# since admit. Labs noted. Meds noted including Marinol, Remeron. Pt is eating 32% meal avg on a Regular Mechanical Soft diet. He is receiving handmade milkshakes with each meal. Rec continue current diet, appetite stimulant. Will continue to provide selective menus and honor food preferences. RD will continue to monitor pt progress.
--- NOTE | 2017-01-01 14:11 | NUR ---
CLINIMIX IV D/C'D. PICC LINE DRESSING CHANGED
--- NOTE | 2017-01-01 15:10 | NUR ---
[facility] CATH CARE GIVEN. CLEAR YELLOW URINE [facility] CATH BAG
--- NOTE | 2017-01-01 15:36 | NUR ---
CARE TEAM MEETING: DAUGHTERS ATTENDED MEETING. TENATIVE DISCHARGE DATE IS 01/13/17. DR. DELANEY IS PCP. PATIENT HAS WALKER, CANE, SHOWER CHAIR, BEDRAILS. DURING MEETING THE TEAM MADE RECCOMENDATIONS THAT FAMILY LOOK FOR SNF FOR POSSIBLE ADMISSION. WILL CONTINUE TO FOLLOW WITH PATIENT UNTIL DISCHARGED.
--- NOTE | 2017-01-01 16:56 | NUR ---
PATIENT VERY CONFUSED. VERY ANXIOUS, PULLING AT CLOTHING. PATIENT PULLED OUT PICC LINE. DRESSING AND PRESURE APPLIED TO SITE. SALINE LOCK PLACED IN RIGHT HAND. COBAN DRESSING OVER SITE. PRN ATIVAN GIVEN FOR AGGITATION.
[2017-01-01 19:00] VITALS: BP 128/74
--- NOTE | 2017-01-01 19:50 | NUR ---
PT. ON FIRST STEP AIR MATTRESS WITH HOB UP FOR COMFORT WITH EYES CLOSED AND RESP. EVEN. PT'S DAUGHTER IN ROOM AND SAID SHE IS GOING TO STAY THE NIGHT WITH HIM. ASKED IF SHE KNEW ALL THE PROBLEMS THAT OCCURRED TODAY AND SHE SAID SHE REALLY DIDN'T KNOW. EXPLAINED ABOUT THE COLOSTOMY INCIDENT AND ABOUT PT. PULLING HIS PICC LINE OUT. DAUGHTER STATED SHE KNEW SOMETHING WAS GOING ON WHEN SHE SAW THE BLOOD ON HER FATHER. EXPLAINED A NEW PERIPHERAL S.L. WAS NOW IN HIS RIGHT HAND AND WE NEEDED TO HELP KEEP PT'S HANDS OFF OF TUBES/TUBING/COLOSTOMY/BANDAGES SO HE DOESN'T PULL ANYTHING ELSE OFF. DAUGHTER SAID SHE COULD HELP WATCH AND WOULD KEEP HIS HANDS ON TOP OF THE COVERS. PT. AWAKENS EASILY FOR ASSESSMENT AND PT. IS CONFUSED AND IS UNABLE TO ANSWER ANY OF THE ORIENTATION QUESTIONS. INSTRUCTED DAUGHTER ON HOW TO TRY TO RE-ORIENT PT. DURING CONVERSATIONS AND SHE SAID SHE WOULD TRY. ASSESSMENT COMPLETED. PT. REMAINS IN DROPLET ISOLATION FOR E.COLI IN SPUTUM. BOSWELL TO BSD WITHOUT ANY PROBLEMS AND RIGHT HAND COBAN TAPED I.V. SITE SECURE AT THIS TIME. CALL LIGHT IS WITHIN REACH FOR ANY NEEDS.
--- NOTE | 2017-01-01 23:05 | NUR ---
DAUGHTER REPORTS SHE IS LEAVING, NOT STAYING THE NIGHT WITH PT. PT. IN BED WITH HOB UP FOR COMFORT AND HAS BOTH HANDS COVERED WITH A SHEET. EYES ARE CLOSED AND RESP. EVEN. BOSWELL TO BSD WITHOUT ANY PROBLEMS. CALL LIGHT WITHIN REACH.
--- NOTE | 2017-01-02 03:05 | NUR ---
PT. HAS STARTED TO FIDGET WITH BED LINENS. AWAKENED PT. UP AND EXPLAINED TO HIM AGAIN WHY HE NEEDS TO LEAVE HIS COVERS ALONE HE PULLS THEM OFF THEN PULLS HIS GOWN UP THEN EXPOSED HIS PRIVATES. PT. ACKNOWLEDGED UNDERSTANDING AND ALLOWED ME TO AGAIN TAKE THE SHEET AND TUCK IT UNDER HIS ARMS AND THEN PLACE THE BLANKET OVER HIS HANDS AND SHOULDERS. CALL LIGHT WITHIN REACH AND BOSWELL TO BSD WITHOUT ANY PROBLEMS.
--- NOTE | 2017-01-02 07:55 | NUR ---
SLEEPING IN BED WITH SIDERAILS UPX2.
[2017-01-02 10:18] VITALS: BP 121/70
--- NOTE | 2017-01-02 11:57 | NUR ---
AISSITED UP TO WHEELCHAIR WITH THERAPY. NO FALLS NOTED.
--- NOTE | 2017-01-02 13:43 | NUR ---
SITTING IN WHEELCHAIR IN THE ROOM WITH CALLIGHT IN REACH.
--- NOTE | 2017-01-02 15:40 | NUR ---
SITTING IN WHEELCHAIR IN GYM WORKING IN THERAPY.
--- NOTE | 2017-01-02 16:55 | NUR ---
RESTING IN BED WITH FAMILY IN THE ROOM.
--- NOTE | 2017-01-02 19:50 | NUR ---
DAUGHTER PRESENT IN ROOM VISITING WITH PT. PT STATES HE AWOKE AND THINKS HE WAS DREAMING AND ASKED HIS DAUGHTER WHAT HE WAS DREAMING ABOUT. PT LOOKING FOR SOMEONE, DAUGHTER STRIVED TO IDENTIFY WHO PATIENT WAS TALKING ABOUT. PT LOOKING FOR OTHER FAMILY MEMBERS, PT KNOWS HE IS IN [place], TUGS AT BOSWELL OCCASIONALLY. PT STATES HIS COLOSTOMY STINKS.
[2017-01-02 19:51] VITALS: BP 123/67
--- NOTE | 2017-01-02 22:00 | NUR ---
PT AWAKE, TOLERATED MEDICATION WITHOUT DIFFICULTY, NO S/S OF ACUTE DISTRESS. BOSWELL CARE, PT STATES HE DIDN'T LIKE, ENCOURAGED PT TO DO HIS OWN, PT DENIED. EMPTIED BOSWELL BAG, PT STATES IT STINKS. PT DIDN'T WANT TO BE REPOSITIONED STATED HE WAS QUITE COMFORTABLE.
--- NOTE | 2017-01-03 00:43 | NUR ---
PT ON MATTRESS OVERLAY INFLATED, RESPIRATIONS REGULAR AND UNLABORED, EYES CLOSED, NO S/S OF ACUTE DISTRESS.
--- NOTE | 2017-01-03 04:32 | NUR ---
PT IN BED WITH HOB UP FOR COMFORT, EYES CLOSED, CHEST RISING AND FALLING, BED IN LOWEST POSITION AND CALL LIGHT WITHIN REACH.
--- NOTE | 2017-01-03 06:28 | NUR ---
MIDLINE DRESSING CHANGED. NO S/S OF INFECTION. PT TOLERATED PROCEDURE WELL AND HAD NO COMPLAINTS AT THIS TIME.
--- NOTE | 2017-01-03 07:56 | NUR ---
SLEEPING IN BED WITH SIDERAILS UP X3.
[2017-01-03 08:55] VITALS: BP 125/62
[2017-01-03 11:05] LABS: BASOPHILS 0.4 % (0.0-2.0); EOSINOPHILS 4.3 % (0-7); HEMATOCRIT 28.2 % (42.0-54.0); IMMATURE GRANULOCYTES 0.1 % (0-5); LYMPHOCYTES 14.6 % (15-50); MCH 28.9 pg (26.0-34.0); MCHC 31.9 g/dL (31.0-37.0); MCV 90.7 fL (80.0-100.0); MONOCYTES 7.7 % (2-11); NEUTROPHILS 72.9 % (40-80); PLATELET COUNT 389 10x3/uL (130-400); RBC 3.11 10x6/uL (4.20-6.10); RDW 15.2 % (11.5-14.5); WBC 9.4 10x3/uL (4.8-10.8)
[2017-01-03 11:24] LABS: CALCIUM 9.1 mg/dL (8.5-10.1); CARBON DIOXIDE 24.9 mmol/L (21.0-32.0); CREATININE - SERUM 1.2 mg/dL (0.6-1.3); POTASSIUM - SERUM 3.9 mmol/L (3.5-5.1)
--- NOTE | 2017-01-03 11:35 | NUR ---
SITTING IN WHEELCHAIR IN THE GYM.
--- NOTE | 2017-01-03 13:00 | NUR ---
Nutrition Follow Up: Chart reviewed. Pt is eating 20% meal avg on a Regular diet. +BM. No new wt to assess. Meds noted including Marinol, Remeron. Labs noted. PPN d/c. Pt continue with poor po intake. Rec continue current diet, appetite stimulant. Will continue to provide selective menus and honor food preferences. RD will continue to monitor pt progress.
--- NOTE | 2017-01-03 13:45 | NUR ---
EXERCISING IN THE GYM.
--- NOTE | 2017-01-03 15:05 | NUR ---
SLEEPING IN BED NO FALLS NOTED.
--- NOTE | 2017-01-03 17:21 | NUR ---
RESTING IN BED SLEEPING.
[2017-01-03 19:15] VITALS: BP 101/61
--- NOTE | 2017-01-03 19:50 | NUR ---
PT. ON FIRST STEP MATTRESS AND SCD TO RLE ONLY. PT'S DAUGHTER IN ROOM VISITING BUT IS NOT GOING TO STAY THE NIGHT WITH PT. DAUGHTER REPORTS THAT SHE WAS TOLD THAT PT. HAD SUNDOWNER'S SYNDROME AND THAT'S WHY HE IS DISORIENTED. ATTEMPTED TO RE-ORIENT PT. AND HE IS UNABLE TO RETAIN ANY INFORMATION. ASSESSMENT COMPLETED. BOSWELL TO BSD WITHOUT ANY PROBLEMS AND STAT LOCK IN PLACE TO HELP KEEP TUBING SECURED. COBAN TAPE TO RIGHT HAND I.V. SITE FOR SECURITY. REMOVED COBAN AND ANGICATH SECURE AND FREE S/S INFECTION/INFILTRATION. COBAN REPLACED. PT. DENIES ANY NEEDS AND SO DOES DAUGHTER. CALL LIGHT REMAINS WITHIN REACH.
--- NOTE | 2017-01-03 23:50 | NUR ---
PT. ON FIRST STEP MATTRESS WITH EYES CLOSED AND RESP. DEEP AND EVEN. BOSWELL TO BSD WITHOUT ANY PROBLEMS AND CALL LIGHT WITHIN REACH.
--- NOTE | 2017-01-04 03:07 | NUR ---
PT. IN BED WITH EYES CLOSED AND RESP. EVEN. BOSWELL TO BSD WITHOUT PROBLEMS. CALL LIGHT WITHIN REACH.
[2017-01-04 07:00] VITALS: BP 113/68
--- NOTE | 2017-01-04 07:56 | NUR ---
RESTING I N BED WITH EYES OPEN.
--- NOTE | 2017-01-04 09:45 | NUR ---
REPOSITIONED IN BED. TOOK MEDS WITH EASE. NO PAIN NOTED.
--- NOTE | 2017-01-04 11:50 | NUR ---
RESTING IN BED WITH SIDERAILS UPX3.
--- NOTE | 2017-01-04 17:46 | NUR ---
SITTING UP IN BED EATING SUPPER. POOR APPETITE NOTED. PT ENCOURAGED TO EAT BUT HE STATES HE IS NOT HUNGRY
--- NOTE | 2017-01-04 19:50 | NUR ---
PT. IN BED WITH HOB UP AND IS ON A FIRST STEP MATTRESS. SCD TO RLE ON, BOSWELL TO BSD, COLOSTOMY BAG TO LUQ INTACT AND NEEDS BURPING, OLD COLOSTOMY SITE DRESSING C/D/I, AND LEFT STUMP UP ON PILLOW WITH RHINA C/D/I AND LEFT OPEN TO AIR. ASSESSMENT COMPLETED. PT. DENIES ANY NEEDS. COVERED PT. WITH SHEET AND PLACED UNDER HIS ARMS IN HOPES TO KEEP PT. FROM PULLING FROM ANY OF HIS DRESSINGS/TUBES/IV SITE. PLACED BLANKET OVER FOLDED ARMS SO PT. WILL BE COVERED FOR COMFORT. CALL LIGHT WITHIN REACH.
[2017-01-04 22:55] VITALS: BP 139/79
--- NOTE | 2017-01-04 23:05 | NUR ---
PT. IN BED WITH HOB UP FOR COMFORT WITH EYES CLOSED AND RESP. EVEN. BOSWELL TO BSD WITHOUT ANY PROBLEMS. PT. HAS NOT ATTEMPTED TO MESS WITH COVERS THEREFORE HAS LEFT BOSWELL, COLOSTOMY, DRESSINGS AND IV SITE ALONE. CALL LIGHT WITHIN REACH.
--- NOTE | 2017-01-05 00:50 | NUR ---
WALKED BY ROOM AND NOTICED THAT PT. HAD UNCOVERED HIMSELF AND WAS EXPOSTING HIMSELF. PT. AWAKE AND I EXPLAINED TO HIM WHAT HAD HAPPENED AND EXPLAINED TO PT. THAT MAYBE HE'S MESSING WITH THE COVERS AND BOSWELL TUBING WHEN HE'S SLEEPING SO HE'S NEEDS TO TRY HARDER TO LEAVE HIS HANDS UP ON HIS CHEST. PT. AGREEABLE. COVERED PT. BACK UP AGAIN PREVIOUS DONE AND WILL CONTINUE TO MONITOR PT. SO HE DOESN'T TRY TO INJURE HIMSELF. UNABLE TO RE-ORIENT PT. AT THIS TIME. CALL LIGHT REMAINS WITHIN REACH.
--- NOTE | 2017-01-05 03:04 | NUR ---
PT. IN BED ON FIRST STEP MATTRESS WITH EYES CLOSED AND RESP. EVEN. LYING ON HIS RIGHT SIDE. BOSWELL TO BSD AND SCD TO RLE REMAINS ON. CHECKED HANDS AND THEY ARE NOT MESSING WITH ANY TUBED/DRESSINGS/IV AT THIS TIME. CALL LIGHT REMAINS WITHIN REACH.
--- NOTE | 2017-01-05 04:15 | NUR ---
AFTER INITIATING IV ASSESSED TUBES AND NOTICED PT. HAD PULLED HIS BOSWELL TUBING UPWARD MORE IN BED. STAT LOCK DEVICE STILL HOLDING CATHETER SECURE. PT. HAS NOT TOUCHED HIS PERIPHERAL IV AT ALL THIS SHIFT. BOSWELL TO BSD WITHOUT ANY PROBLEMS. CALL LIGHT REMAINS WITHIN REACH.
[2017-01-05 07:00] VITALS: BP 131/84
--- NOTE | 2017-01-05 07:30 | NUR ---
RESTING QUIETLY IN BED. CALL LIGHT IN REACH
--- NOTE | 2017-01-05 12:30 | NUR ---
EATING LUNCH IN BED. REMAINS CONFUSED BUT COOPERATIVE AND PLEASANT. TENDS TO PULL ON F/C AND IV TUBING. CAN BE REDIRECTED FOR SHORT PERIODS BUT DOES BETTER WHEN TUBING IS COVERED UP. DENIES PAIN. APPETITE POOR.
--- NOTE | 2017-01-05 18:12 | NUR ---
SITTING UP IN BED WATCHING TV. ATE SMALL AMOUNT OF SUPPER.
--- NOTE | 2017-01-05 19:50 | NUR ---
PT. ON FIRST STEP MATTRESS WITH EYES CLOSED AND RESP. DEEP AND EVEN. PT. HAS UNCOVERED HIMSELF AND HAS HIS SCRUB SHIRT PULLED OFF HIS LEFT ARM AND HEAD. PT. AWAKENS EASILY AND ASKED FOR HIS ASSISTANCE IN PUTTING HIS SCRUB SHIRT BACK ON AND HE DID COMPLY WITH REQUEST. ASSESSMENT COMPLETED. PT. THEN COVERED BACK UP WITH SHEET AND TUCKEDIN ALL AROUND HIS BODY. CALL LIGHT WITHIN REACH AND BOSWELL TO BSD WITHOUT ANY PROBLEMS. RT. HAND PERIPHERAL IV INFUSING NS VIA PUMP AT KVO RATE.
--- NOTE | 2017-01-05 22:38 | NUR ---
PT. IN BED WITH HOB UP FOR COMFORT AND IS ON A FIRST STEP MATTRESS. BOSWELL TO BSD WITHOUT PROBLEMS. PT. HAS UNCOVERED HIMSELF BUT IS LYING STILL AND NOT PICKING/PULLING AT ANYTHING AT THIS TIME. WILL CONTINUE TO MONITOR. IV CONTINUES TO INFUSE VIA PUMP AT KVO RATE TO RIGHT HAND WITHOUT ANY ALARMS. CALL LIGHT IS WITHIN REACH BUT PT. HASN'T USED IT SINCE I STARTING HAVE HIM A PT.
[2017-01-05 23:40] VITALS: BP 152/77
--- NOTE | 2017-01-06 00:56 | NUR ---
PT. IN BED WITH HOB UP FOR COMFORT WITH EYES CLOSED AND RESP. DEEP AND EVEN. PT. HAS REMOVED HIS OWN GLASSES AND PLACED THEM ON BEDSIDE TABLE SINCE LAST ROUNDING. BOSWELL TO BSD WITHOUT PROBLEMS AND WELL RT. HAND PERIPHERAL IV INFUSING N.S. AT KVO RATE VIA PUMP WITHOUT ANY PROBLEMS.
--- NOTE | 2017-01-06 03:18 | NUR ---
PT. IN BED WITH HOB UP FOR COMFORT AND IS ON A FIRST STEP AIR MATTRESS. SCD TO RLE INTACT, BOSWELL TO BSD WITHOUT PROBLEM, AND PERIPHERAL IV SITE TO RT. HAND WITH KVO N.S. VIA PUMP WITHOUT ANY PROBLEMS. EYES ARE CLOSED AND RESP. ARE EVEN. CALL LIGHT WITHIN REACH.
--- NOTE | 2017-01-06 04:13 | NUR ---
PT. LYING ON FIRST STEP MATTRESS WITH HOB UP FOR COMFORT AND IS WATCHING TV. PT. HAS UNCOVERED HIMSELF OF HIS SHEET/BLANKET. ASKED IF HE HAD ANY PAIN ANYWHERE AND HE DENIES. ASKED IF HE NEEDED TO BE COVERED WITH HIS SHEET AND HE DECLINED. EXPLAINED I WAS STARTING HIS ANTIBIOTIC THRU HIS I.V. TO HIS RIGHT HAND AND HE SAID, "OK HONEY". PT. DENIES ANY NEEDS AT THIS TIME AND HIS CALL LIGHT IS WITHIN REACH. BOSWELL TO BSD WITHOUT PROBLEMS AND SCD TO RLE ON AND WORKING PROPERLY.
[2017-01-06 06:00] LABS: BASOPHILS 0.5 % (0.0-2.0); EOSINOPHILS 4.4 % (0-7); HEMATOCRIT 30.1 % (42.0-54.0); HEMOGLOBIN 9.7 g/dL (13.5-17.5); IMMATURE GRANULOCYTES 0.4 % (0-5); LYMPHOCYTES 14.3 % (15-50); MCH 28.4 pg (26.0-34.0); MCHC 32.2 g/dL (31.0-37.0); MCV 88.3 fL (80.0-100.0); MONOCYTES 6.7 % (2-11); NEUTROPHILS 73.7 % (40-80); PLATELET COUNT 406 10x3/uL (130-400); RBC 3.41 10x6/uL (4.20-6.10); RDW 14.9 % (11.5-14.5); WBC 8.3 10x3/uL (4.8-10.8)
[2017-01-06 06:18] LABS: ANION GAP 14.8 mmol/L (8-16); CALCIUM 9.3 mg/dL (8.5-10.1); CARBON DIOXIDE 23.7 mmol/L (21.0-32.0); CREATININE - SERUM 1.1 mg/dL (0.6-1.3); POTASSIUM - SERUM 3.5 mmol/L (3.5-5.1)
--- NOTE | 2017-01-06 08:00 | NUR ---
Sitting up in bed.Breakfast given.CL in reach.
--- NOTE | 2017-01-06 08:18 | NUR ---
PT RECEIVED LYING IN BED WITH HOB AT 90 DEGREESS EATING BREAKFAST. PT DENIES ANY CONCERNS AT THIS TIME CALL LIGHT AND PERSONAL ITEMS WITHIN REACH. BED IN LOWEST POSITION.
[2017-01-06 09:19] VITALS: BP 116/71
--- NOTE | 2017-01-06 17:36 | NUR ---
PT OBSERVED LYING IN BED WATCHING TV. PT DENIES ANY CONCERNS AT THIS TIME. CALL LIGHT AND PERSONAL ITEMS WITHIN REACH. BED IN LOWEST POSITION AND BED ALARM ON
[2017-01-06 19:00] VITALS: BP 128/74
--- NOTE | 2017-01-06 19:40 | NUR ---
PT IN BED WITH EYES CLOSED AND CHEST RISING. EASILY AROUSED TO VERBAL STIMULI. NO NEEDS OR CONCERNS NOTED. CALL LIGHT IN REACH.
--- NOTE | 2017-01-07 00:45 | NUR ---
PT IN BED WITH EYES CLOSED AND CHEST RISING. NO SIGN/SYMPTOMS OF DISTRESS NOTED. CALL LIGHT IN REACH.
--- NOTE | 2017-01-07 05:20 | NUR ---
PT IN BED WITH EYES CLOSED AND CHEST RISING. NO CONCERNS NOTED AT THIS TIME. CALL LIGHT IN REACH.
--- NOTE | 2017-01-07 08:00 | NUR ---
PT IS RESTING IN BED WITH EYES OPEN. ALERT AND ORIENTED X 3. PT DENIES ACUTE DISCOMFORT AT THIS TIME. VOICED CONCERNS ABOUT WHEN HE WOULD BE GOING HOME, AND SEEING FAMILY MEMBERS. HIS DAUGHTER WALKED IN RIGHT AFTER HE SAID THIS. HE WAS VERY HAPPY TO SEE HER. LEFT LEG AKA DRESSING IS CDI. NO DRAINAGE NOTED. SCD IS ON RIGHT LEG. COLOSTOMY BAG NOTED WITH A MID AMOUNT OF SOFT BROWN STOOL IN IT. BOSWELL CATH IS PATENT AND DRAINING TO A GRAVITY BAG. DROPLETT ISOLATION PRECAUTIONS OBSERVED. MEPILEX DRESSING TO RIGHT BUTTOCK IS INTACT. PT ASSISTED TO DRESS IN SCRUBS FOR THERAPY TODAY. SR'S ARE UP X 3 IN BED. CALL LIGHT AND BEDSIDE TABLE ARE WITHIN EASY REACH.
--- NOTE | 2017-01-07 09:39 | NUR ---
PT IS RESTING IN BED AWAITING THERAPY. NO ACUTE DISTRESS NOTED.
[2017-01-07 10:26] VITALS: BP 131/64
--- NOTE | 2017-01-07 12:17 | NUR ---
PT IS SITTING IN A WC IN HIS ROOM FEEDING SELF LUNCH. NO ACUTE DISTRESS NOTED.
--- NOTE | 2017-01-07 14:00 | NUR ---
RESTING QUIETLY IN BED.CL IN REACH.
--- NOTE | 2017-01-07 14:05 | NUR ---
Nutrition Follow Up: Pt was in therapy at the time of RD visit. Pt interview deferred at this time. Spoke with nursing who reported that pt's appetite seems to be slightly improving. Pt is eating 23% meal avg on a regular moist mechanical soft diet. Pt with colostomy. Labs noted - Glucose decreased. Meds noted - Marinol d/c. Pt continues with poor po intake - not meeting est nutritional needs. Rec continue current diet. Will continue to provide selective menus and honor food preferences. RD following.
--- NOTE | 2017-01-07 15:11 | NUR ---
PT ASSISTED BACK TO BED AFTER THERAPY BY PT. NO NEEDS VOICED.
--- NOTE | 2017-01-07 17:58 | NUR ---
PT IS RESTING QUIETLY IN BED WITH EYES CLOSED. RESPS ARE EVEN AND UNLABORED. BLADDER TRAINING STARTED.
[2017-01-07 19:00] VITALS: BP 122/68
--- NOTE | 2017-01-07 23:45 | NUR ---
PT RECEIVED IN BED VISITING WITH FAMILY AT BEDSIDE. NO CONCERNS NOTED. MEDICATIONS ADMINISTERED PER MAR WITHOUT DIFFICULTY. PT ON BLADDER TRAINING AND TOLERATING WELL AT THIS TIME. IN BED WITH EYES CLOSED AND CHEST RISING AT THIS TIME. CALL LIGHT IN REACH.
--- NOTE | 2017-01-08 03:48 | NUR ---
PT IN BED WITH EYES CLOSED. SLEPT MOST OF SHIFT TO THIS POINT. EASILY AWOKEN TO VERBAL STIMULI. NO SIGN/SYMPTOMS OF DISTRESS. NO COMPLAINTS MADE KNOWN. CALL LIGHT IN REACH.
[2017-01-08 07:16] LABS: BASOPHILS 0.5 % (0.0-2.0); EOSINOPHILS 4.3 % (0-7); HEMATOCRIT 31.8 % (42.0-54.0); IMMATURE GRANULOCYTES 0.3 % (0-5); LYMPHOCYTES 13.6 % (15-50); MCH 28.2 pg (26.0-34.0); MCHC 31.4 g/dL (31.0-37.0); MCV 89.8 fL (80.0-100.0); MEAN PLATELET VOLUME 9.9 fL (7.4-10.4); MONOCYTES 7.7 % (2-11); NEUTROPHILS 73.6 % (40-80); PLATELET COUNT 487 10x3/uL (130-400); RBC 3.54 10x6/uL (4.20-6.10); RDW 15.2 % (11.5-14.5); WBC 7.9 10x3/uL (4.8-10.8)
[2017-01-08 07:34] LABS: ANION GAP 15.4 mmol/L (8-16); CALCIUM 9.4 mg/dL (8.5-10.1); CARBON DIOXIDE 23.4 mmol/L (21.0-32.0); CREATININE - SERUM 1.1 mg/dL (0.6-1.3); POTASSIUM - SERUM 3.8 mmol/L (3.5-5.1)
--- NOTE | 2017-01-08 08:00 | NUR ---
SHIFT ASSMT COMPLETED.DENIES NEEDS.BLADDER TRAINING NOTED.BEDDING AND DEPENDS WET WITH URINE.BOSWELL CATH UNCLAMPED AND DRAINING.CHANGED AND MEAL SET-UP PROVIDED.CL IN REACH.
[2017-01-08 09:51] VITALS: BP 126/76
--- NOTE | 2017-01-08 12:00 | NUR ---
SITTING UP IN BED.MEAL SET-UP GIVEN. AND DAUGHTER AT BEDSIDE.
--- NOTE | 2017-01-08 15:15 | NUR ---
CARE TEAM MEETING: AND DAUGHTER ATTENDED MEETING.PATIENT TENATIVE DISCHARGE DATE IS 01/13/17 AND FAMILY WOULD LIKE FOR A REFERRAL TO BE MADE TO [facility]. WILL CONTINUE TO FOLLOW WITH PATIENT
--- NOTE | 2017-01-08 16:00 | NUR ---
ASSISTED UP OOB WITH SLIDE BOARD WITH ASSIST X2.CL IN REACH.
[2017-01-08 19:00] VITALS: BP 125/71
--- NOTE | 2017-01-08 20:30 | NUR ---
PT. IN BED WITH HOB UP FOR COMFORT WITH EYES CLOSED AND RESP. DEEP AND EVEN. PT AWAKENS EASILY FOR ASSESSMENT. ASSESSMENT COMPLETED. CALL LIGHT WITHIN REACH.
--- NOTE | 2017-01-08 22:56 | NUR ---
PT. IN BED ON FIRST STEP MATTRESS. EYES CLOSED AND RESP. DEEP AND EVEN. BLADDER TRAINING WILL CONTINUE ORDERED. BOSWELL TO BSD WITHOUT PROBLEMS. CALL LIGHT IS WITHIN REACH.
--- NOTE | 2017-01-09 01:06 | NUR ---
PT. IN BED ON FIRST STEP MATTRESS WITH EYES CLOSED AND RESP. EVEN. BLADDER TRAINING CONTINUES ORDERED. BOSWELL TO BSD. CALL LIGHT WITHIN REACH.
--- NOTE | 2017-01-09 03:25 | NUR ---
PT. IN BED WITH HOB UP FOR COMFORT ON 1ST STEP MATTRESS. EYES ARE CLOSED AND RESP. ARE DEEP AND EVEN. CALL LIGHT WITHIN REACH.
--- NOTE | 2017-01-09 04:16 | NUR ---
PT. AWAKENED WHEN I WALKED INTO ROOM. PT. REPORTS HE HAS PRESSURE IN HIS BLADDER AREA. BOSWELL TUBING OPENED TO DRAIN URINE AND PT. STATED HE HAD NO MORE PRESSURE IN HIS BLADDER. PT. DENIES ANY NEEDS AT THIS TIME AND HIS CALL LIGHT IS WITHIN REACH.
--- NOTE | 2017-01-09 08:30 | NUR ---
SITTING UP IN BED EATING DIET.POOR APPETITE.ASSESSMENT COMPLETED.COLOSTOMY HAS LOOSE STOOL IN IT.STERI STRIPS INTACT TO LEFT STUMP.INCISION HEALING WELL.DENIES PAIN AND NEEDS.ENCOURAGED TO EAT.CL IN EASY REACH,BED IN LOW POSITION.REMAINS IN DROPLET ISOLATION FOR ECOLI IN SPUTUM.
[2017-01-09 09:00] VITALS: BP 133/94
[2017-01-09 19:00] VITALS: BP 124/76
--- NOTE | 2017-01-09 20:10 | NUR ---
PT. IN BED ON FIRST STEP MATTRESS WITH EYES CLOSED AND RESP. EVEN. PT. AWAKENS EASILY FOR ASSESSMENT. PT. MORE ALERT THIS EVENING ALTHOUGH HE THINKS HE'S IN [facility]. RE-ORIENTED PT. TO [facility] AND HE WAS STILL UNABLE TO RECALL. WILL CONTINUE TO RE-ORIENT PT. CALL LIGHT WITHIN REACH FOR ANY NEEDS.
--- NOTE | 2017-01-09 23:05 | NUR ---
PT. IN BED ON FIRST STEP MATTRESS WITH HOB UP FOR COMFORT, AND EYES ARE CLOSED AND RESP. ARE DEEP AND EVEN. CONTINUE WITH BLADDER TRAINING AND ATTEMPTING TO GET PT. TO DRINK WATER MORE OFTEN THIS SHIFT. CALL LIGHT REMAINS WITHIN REACH.
--- NOTE | 2017-01-10 03:05 | NUR ---
PT. IN BED WITH HOB UP FOR COMFORT ON FIRST STEP MATTRESS. SCD TO RLE ON WITHOUT PROBLEM. BLADDER TRAINING CONTINUES WITHOUT PROBLEMS, BUT TRYING TO GET PT. TO DRINK FLUIDS IS. CALL LIGHT REMAINS WITHIN REACH.
[2017-01-10 08:00] VITALS: BP 139/71
--- NOTE | 2017-01-10 08:00 | NUR ---
PATIENT REAMINS IN DROPLET ISOLATION. AWAKE WITH SOME CONFUSION NOTED. CALL LIGHT WITHIN REACH. VOICES NO NEEDS AT THIS TIME
[2017-01-10 08:29] LABS: BASOPHILS 0.4 % (0.0-2.0); EOSINOPHILS 3.3 % (0-7); HEMATOCRIT 32.6 % (42.0-54.0); HEMOGLOBIN 10.5 g/dL (13.5-17.5); IMMATURE GRANULOCYTES 0.3 % (0-5); LYMPHOCYTES 15.1 % (15-50); MCH 28.8 pg (26.0-34.0); MCHC 32.2 g/dL (31.0-37.0); MCV 89.3 fL (80.0-100.0); MEAN PLATELET VOLUME 9.7 fL (7.4-10.4); NEUTROPHILS 74.9 % (40-80); PLATELET COUNT 454 10x3/uL (130-400); RBC 3.65 10x6/uL (4.20-6.10); RDW 15.3 % (11.5-14.5); WBC 7.8 10x3/uL (4.8-10.8)
[2017-01-10 08:46] LABS: CALC OSMOLALITY 274 mosm/kg (275-300); CALCIUM 9.4 mg/dL (8.5-10.1); CARBON DIOXIDE 24.8 mmol/L (21.0-32.0); CHLORIDE - SERUM 103 mmol/L (98-107); GLUCOSE 126 mg/dL (74-106); POTASSIUM - SERUM 3.4 mmol/L (3.5-5.1); SODIUM 137 mmol/L (136-145); UREA NITROGEN 11 mg/dL (7-18); eGFR NON AFRICAN AMERICAN 79 mL/min (90-120)
--- NOTE | 2017-01-10 11:45 | NUR ---
REFERRAL FAXED TO [facility] FOR POSSIBLE ADMISSION ON 01/13/17 OR 01/14/17. WILL CONTINUE TO FOLLOW WITH PATIENT
--- NOTE | 2017-01-10 12:18 | NUR ---
BOSWELL CATHERTAR REMOVED WITHOUT DIFFICULTY. 300CC OF ARMBER, TING BLOOD URINE IN BOSWELL CATH BAG
--- NOTE | 2017-01-10 14:39 | NUR ---
PATIENT REFUSED BED BATH.
--- NOTE | 2017-01-10 16:07 | NUR ---
PATIENT INCONT OF URINE. LARGE AMOUNT IN BRIEF
--- NOTE | 2017-01-10 18:26 | NUR ---
PATIENTS JIMBO IN ROOM VISITING. ISOLATION PRECAUSIONS MAINTAINED
[2017-01-10 19:00] VITALS: BP 120/66
--- NOTE | 2017-01-10 22:34 | NUR ---
PT RECEIVED IN BED VISITING WITH DAUGHTER. BRIEF AND CLOTHING CHANGED. COLOSTOMY EMPTIED WITH WAFER CHANGED. NO OTHER NEEDS OR CONCERNS MADE KNOWN. RECEIVED EVENING MEDICATIONS GIVEN WITHOUT DIFFICULTY. RESTING WITH EYES CLOSED AND CHEST RISING. CALL LIGHT IN REACH.
--- NOTE | 2017-01-11 02:22 | NUR ---
PT IN BED WITH EYES CLOSED AND CHEST RISING. NO CONCERNS NOTED AT THIS TIME. CALL LIGHT IN REACH.
[2017-01-11 07:00] VITALS: BP 140/66
--- NOTE | 2017-01-11 07:35 | NUR ---
PT IN BED RESTING WITH EYES CLOSED. REMAINS ON DROPLET PRECAUTIONS. STERI STRIPS INTACT TO LEFT AKA. COLOSTOMY INTACT. NO DISTRESS WILL MONITOR.
--- NOTE | 2017-01-11 12:10 | NUR ---
TOOK PT TRAY TO ROOM, PT HAS FLUNG LEG OVER SIDE OF BED AND HAS SCOOTED DOWN TO THE BOTTOM OF THE BED. THE BAR ASSISTANT COMES TO HELP PULL HIM UP AND REPOSTION TO GET READY FOR LUNCH, AND MENTIONS THAT SHE HAS HAD TO GET HIM FROM THAT SAME POSTION SEVERAL TIMES ALREADY TODAY.
--- NOTE | 2017-01-11 14:13 | NUR ---
RESTING QUIETLY.DAUGHTER AT BEDSIDE.
--- NOTE | 2017-01-11 17:30 | NUR ---
TOOK PT HIS TRAY FOR SUPPER, NO C/O PAIN. PT HAS STRIPPED HIS GOWN AND COVERED IN BLANKET. HE IS PLAYING WITH HIS NOOK TRING TO FIGURE OUT HOW TO CALL HIS DTR OFF IT, THINKING SHE IS ON THE SAME FLOOR AND HE CAN JUST WALK THERE. I REDIRECT HIS ATTENTION TO HIS SUPPER TRAY AND HE STARTES ANOTHER SUBJECT.
[2017-01-11 22:58] VITALS: BP 129/58
--- NOTE | 2017-01-11 23:24 | NUR ---
PT IN BED WITH EYE OPEN WATCHING TV. NO SIGN/SYMPTOMS OF DISTRESS NOTED. CONFUSED TO PLACE AND SITUATION. DRAW SHEET WET AND CHANGED. MEDICATIONS GIVEN PER MAR WITHOUT DIFFICUTLY. NO CONCERNS NOTED AT THIS TIME. CALL LIGHT IN REACH.
--- NOTE | 2017-01-12 00:50 | NUR ---
PT IN BED WITH EYES CLOSED AND CHEST RISING. NO SIGN/SYMPTOMS OF DISTRESS NOTED. CALL LIGHT IN REACH.
--- NOTE | 2017-01-12 06:32 | NUR ---
PT IN BED WITH EYES CLOSED AND CHEST RISING. EASILY AROUSED TO VERBAL STIMULI. MIDLINE ABDOMEN CHANGED WITHOUT DIFFICULTY. COLOSTOMY EMPTIED WITH HALF FULL. BEDDING CHANGED DUE TO INCONTINENCE. 100 ML IN URINAL. IN BED WITH EYES CLOSED AT THIS TIME. CALL LIGHT IN REACH.
[2017-01-12 07:00] VITALS: BP 136/77
--- NOTE | 2017-01-12 07:25 | NUR ---
SLEEPING IN BED WITH SIDERAILS UP X3. TOOK PO MED WITH EASE.
--- NOTE | 2017-01-12 09:45 | NUR ---
REFUSES MIRALAX TODAY, BUT TOOK OTHER MEDS ORDERED.
--- NOTE | 2017-01-12 11:47 | NUR ---
RESTING IN BED WITH AT THE BEDSIDE.
--- NOTE | 2017-01-12 13:55 | NUR ---
SLEEPING IN BED WITH CALLIGHT IN REACH.
--- NOTE | 2017-01-12 15:54 | NUR ---
SLEEPING IN THE ROOM.
--- NOTE | 2017-01-12 17:55 | NUR ---
REPOSITIONED IN BED TO EAT.
[2017-01-12 19:40] VITALS: BP 140/65
--- NOTE | 2017-01-12 19:40 | NUR ---
PT IN BED WITH HOB UP FOR COMFORT, WATCHING TV, PT HAS NO COMPLAINTS AT THIS TIME, BED IN LOWEST POSITION AND CALL LIGHT WITHIN REACH.
--- NOTE | 2017-01-12 23:42 | NUR ---
PT IN BED WITH HOB UP FOR COMFORT, EYES CLOSED, CHEST RISING AND FALLING, BED IN LOWEST POSITION AND CALL LIGHT WITHIN REACH.
--- NOTE | 2017-01-13 03:40 | NUR ---
PT IN BED WITH HOB UP FOR COMFORT, EYES CLOSED, CHEST RISING AND FALLING, BED IN LOWEST POSITION AND CALL LIGHT WITHIN REACH.
--- NOTE | 2017-01-13 04:18 | NUR ---
COLOSTOMY BAG EMPTIED. BED BATH GIVEN. LINENS CHANGED.
[2017-01-13 06:08] LABS: BASOPHILS 0.4 % (0.0-2.0); HEMATOCRIT 33.6 % (42.0-54.0); HEMOGLOBIN 10.7 g/dL (13.5-17.5); IMMATURE GRANULOCYTES 0.1 % (0-5); LYMPHOCYTES 19.5 % (15-50); MCH 28.5 pg (26.0-34.0); MCHC 31.8 g/dL (31.0-37.0); MCV 89.6 fL (80.0-100.0); MEAN PLATELET VOLUME 9.9 fL (7.4-10.4); MONOCYTES 8.6 % (2-11); NEUTROPHILS 66.4 % (40-80); PLATELET COUNT 401 10x3/uL (130-400); RBC 3.75 10x6/uL (4.20-6.10); RDW 15.2 % (11.5-14.5); WBC 6.9 10x3/uL (4.8-10.8)
[2017-01-13 06:30] LABS: CALC OSMOLALITY 273 mosm/kg (275-300); CALCIUM 9.5 mg/dL (8.5-10.1); CARBON DIOXIDE 25.1 mmol/L (21.0-32.0); CHLORIDE - SERUM 103 mmol/L (98-107); GLUCOSE 98 mg/dL (74-106); POTASSIUM - SERUM 3.7 mmol/L (3.5-5.1); SODIUM 137 mmol/L (136-145); UREA NITROGEN 13 mg/dL (7-18); eGFR NON AFRICAN AMERICAN 79 mL/min (90-120)
--- NOTE | 2017-01-13 07:50 | NUR ---
RECEIVED THIS AM IN BED,AWAKE.DENIES NEEDS.ORIENTED TO PERSON AND PLACE.COLOSTOMY PATENT WITH LIQUID STOOL.ASSESSMENT COMPLETED.CL IN EASY REACH,BED IN LOW POSITION.
[2017-01-13 09:26] VITALS: BP 127/72
--- NOTE | 2017-01-13 16:02 | NUR ---
PATIENT WILL DISCHARGE TO [facility] 01/14/17 VIA FACILITY [facility]AN. [facility]SE NOTIFIED.NO DME OR HH NEEDED AT THIS TIME. DR. MARLEY 01/31/17 @ 10:00. PATIENT CHOICE FORM FOR [facility] AND [facility] FORM SIGNED , EXPLAINED AND FILED IN CHART. WILL CONTINUE TO FOLLOW WITH PATIENT UNTIL DISCHRGED
--- NOTE | 2017-01-13 19:04 | NUR ---
PT RESTING IN BED, EYES OPEN. PT DENIES NEEDS. WCTM. BED LOW. CL IN REACH.
[2017-01-13 19:37] VITALS: BP 124/76
--- NOTE | 2017-01-13 21:05 | NUR ---
PT HS MEDS ADMINISTERED AND CALMOSEPTINE APPLIED TO BUTTOCK. PT DENIES NEEDS AT THIS TIME. BED LOW. CL IN REACH. WCTM.
--- NOTE | 2017-01-14 00:35 | NUR ---
PT RESTING, EYES CLOSED. BED LOW. CL IN REACH.
--- NOTE | 2017-01-14 03:39 | NUR ---
PT RESTING, EYES CLOSED. BED LOW. CL IN REACH. WCTM.
--- NOTE | 2017-01-14 06:49 | NUR ---
PT HAD INCONT EPISODE. PT LINENS CHANGED AND NEW SHIRT APPLIED. PT TOOK AM MEDS WITHOUT DIFFICULTY. PT DENIES NEEDS AT THIS TIME. BED LOW. CL INR EACH.
--- NOTE | 2017-01-14 08:57 | NUR ---
PT WAS RECEIVED AT THE BEGINNING OF THIS SHIFT. AWAKE AND ORIENTED TO SELF. CONFUSED. HE WAS CLEANED UP WITH GOOD PERINEAL CARE GIVEN AND FRESH BRIEF AND SHORTS PUT ON HIM. [facility] AND OFF HE WENT. HE TOOK WITH HIM HIS DISCHARGE PAPERWORK AND PERSONAL BELONGINGS. [facility].
[2017-01-14 09:05] VITALS: BP 133/63
== END 2017-01-14 09:04 | DRG 559 ==
LOC: D.REHAB 19:56
PROVIDERS: ADMIT Emergency Medicine
DX: Z47.81 Encounter for orthopedic aftercare following surgical amputation (principal); K65.1 Peritoneal abscess; G93.40 Encephalopathy, unspecified; J96.00 Acute respiratory failure, unspecified whether with hypoxia or hypercapnia; D62 Acute posthemorrhagic anemia; Z89.612 Acquired absence of left leg above knee; I12.9 Hypertensive chronic kidney disease with stage 1 through stage 4 chronic kidney disease, or unspecified chronic kidney disease; N18.9 Chronic kidney disease, unspecified; R50.9 Fever, unspecified; Z85.038 Personal history of other malignant neoplasm of large intestine; I70.202 Unspecified atherosclerosis of native arteries of extremities, left leg; D72.829 Elevated white blood cell count, unspecified; J44.9 Chronic obstructive pulmonary disease, unspecified; R50.82 Postprocedural fever

== ENCOUNTER → 2017-02-20 15:12 | Outpatient (CLI) | payer MEDICARE, OTHER ==
[2016-12-28 09:41] VITALS: BMI 27.6
== END | disposition home or self-care (01) ==
LOC: D.LAB 15:12
DX: N40.0 Benign prostatic hyperplasia without lower urinary tract symptoms (principal)

== ENCOUNTER → 2017-04-16 11:21 | Outpatient (CLI) | payer MEDICARE, OTHER ==
[2016-12-28 09:41] VITALS: BMI 27.6
[2017-04-16 12:04] LABS: BASOPHILS 0.5 % (0-2); EOSINOPHILS 4.6 % (0-7); HEMATOCRIT 41.5 % (42.0-54.0); HEMOGLOBIN 13.5 g/dL (13.5-17.5); LYMPHOCYTES 18.3 % (15-50); MCHC 32.5 g/dL (31.0-37.0); MCV 89.1 fL (80.0-100.0); MEAN PLATELET VOLUME 10.1 fL (7.4-10.4); MONOCYTES 9.3 % (2-11); NEUTROPHILS 67.3 % (40-80); RBC 4.66 10x6/uL (4.20-6.10); RDW 14.7 % (11.5-14.5); WBC 6.6 10x3/uL (4.8-10.8)
[2017-04-16 12:05] LABS: PLATELET COUNT 273 10x3/uL (130-400)
== END | disposition home or self-care (01) ==
LOC: D.LAB 11:00 → D.CT 11:30
PROVIDERS: Surgery
DX: C18.9 Malignant neoplasm of colon, unspecified (principal)

== ENCOUNTER → 2018-01-15 10:13 | Outpatient (CLI) | payer MEDICARE, OTHER ==
[2016-12-28 09:41] VITALS: BMI 27.6
[2018-01-15 12:27] LABS: ALBUMIN 3.6 g/dL (3.4-5.0); ANION GAP 12.1 mmol/L (8-16); BILIRUBIN - DIRECT 0.12 mg/dL (0.00-0.30); BILIRUBIN - INDIRECT 0.34 mg/dL (0.00-1.00); BILIRUBIN - TOTAL 0.46 mg/dL (0.2-1.3); CALCIUM 9.3 mg/dL (8.5-10.1); CARBON DIOXIDE 26.9 mmol/L (21.0-32.0); CREATININE - SERUM 1.2 mg/dL (0.6-1.3)
[2018-01-15 12:39] LABS: BASOPHILS 0.5 % (0-2); HEMATOCRIT 46.3 % (42.0-54.0); IMMATURE GRANULOCYTES 0.3 % (0-5); LYMPHOCYTES 18.9 % (15-50); MCH 31.6 pg (26.0-34.0); MCHC 34.6 g/dL (31.0-37.0); MCV 91.5 fL (80.0-100.0); MEAN PLATELET VOLUME 10.3 fL (7.4-10.4); MONOCYTES 7.6 % (2-11); NEUTROPHILS 69.7 % (40-80); PLATELET COUNT 249 10x3/uL (130-400); RBC 5.06 10x6/uL (4.20-6.10); RDW 13.9 % (11.5-14.5); WBC 7.6 10x3/uL (4.8-10.8)
== END | disposition home or self-care (01) ==
LOC: D.LAB 12-03 10:15 → D.CT 12-03 10:30 → D.LAB 12-04 13:45
PROVIDERS: Surgery
DX: C18.9 Malignant neoplasm of colon, unspecified (principal)

== ENCOUNTER → 2018-04-14 11:24 | Outpatient (CLI) | payer MEDICARE, OTHER ==
[2016-12-28 09:41] VITALS: BMI 27.6
[2018-04-14 11:54] LABS: BASOPHILS 0.9 % (0-2); EOSINOPHILS 3.2 % (0-7); HEMATOCRIT 49.8 % (42.0-54.0); HEMOGLOBIN 17.8 g/dL (13.5-17.5); IMMATURE GRANULOCYTES 0.3 % (0-5); LYMPHOCYTES 14.7 % (15-50); MCH 32.3 pg (26.0-34.0); MCHC 35.7 g/dL (31.0-37.0); MCV 90.4 fL (80.0-100.0); MEAN PLATELET VOLUME 10.1 fL (7.4-10.4); MONOCYTES 8.7 % (2-11); NEUTROPHILS 72.2 % (40-80); PLATELET COUNT 262 10x3/uL (130-400); RBC 5.51 10x6/uL (4.20-6.10); RDW 14.9 % (11.5-14.5); WBC 7.7 10x3/uL (4.8-10.8)
[2018-04-14 12:09] LABS: ALBUMIN 3.8 g/dL (3.4-5.0); BILIRUBIN - DIRECT 0.15 mg/dL (0.00-0.30); BILIRUBIN - INDIRECT 0.45 mg/dL (0.00-1.00); BILIRUBIN - TOTAL 0.6 mg/dL (0.2-1.3); PROTEIN - SERUM 8.1 g/dL (6.4-8.2)
== END | disposition home or self-care (01) ==
LOC: D.CT 11:24
PROVIDERS: Surgery
DX: C18.9 Malignant neoplasm of colon, unspecified (principal)

== ENCOUNTER 2018-08-16 14:52 | Emergency (ER) | payer MEDICARE, OTHER ==
[~2018-08-16] VITALS: Ht 175.3 cm; Wt 72.7 kg
[2018-08-16 15:00] VITALS: Ht 175.3 cm; Wt 72.7 kg
[2018-08-16] MEDS ORDERED: BACTRIM 400-801 TAB PO (15:03)
[2018-08-16] MEDS ORDERED: BACTROBAN CREAM15 GM TOPICAL (15:03)
[2018-08-16 15:56] VITALS: BP 178/92
== END 2018-08-16 15:57 | disposition home or self-care (01) ==
LOC: D.ER 14:52
DX: L89.619 Pressure ulcer of right heel, unspecified stage (principal); I10 Essential (primary) hypertension; Z89.612 Acquired absence of left leg above knee; G62.9 Polyneuropathy, unspecified; Z85.038 Personal history of other malignant neoplasm of large intestine; F17.200 Nicotine dependence, unspecified, uncomplicated